=== PATIENT | male | born 1955 | race Caucasian/White ===

== ENCOUNTER 2022-07-27 05:38 | Observation (INO) ==
[2022-07-27] MEDS ORDERED: CEFAZOLIN 2,000 MG/15 ML SYR IV SCH (06:00)
[2022-07-27] MEDS ORDERED: SODIUM CHLORIDE 0.9% 1000ML 1,000 ML IV SCH ×2 (06:00→09:45)
[2022-07-27 06:28] LABS: Creatinine Clr Calc Pharmacy 86.5 ml/min; Est GFR (African American) 88.4 ml/min; Est GFR (Non-African American) 76.2 ml/min
--- NOTE | 2022-07-27 07:35 | History & Physical Report ---
Date of Service July 27, 2022 History of Present Illness Primary Care Provider: Domingo Valentino MD Reason for Consultation Left lower extremity claudication History of Present Illness This is a 67-year-old gentleman who has a history of peripheral vascular occlusive disease. He had a right leg bypass in 2019 and right iliac artery stenting in 2018. He has had endarterectomies and angioplasties of his left superficial femoral artery and angioplasty of his anterior tibial artery on the left side. Post procedure he had occlusion of his anterior tibial artery proximally. He did not have any claudication at that time. Subsequently he is developed claudication left lower extremity which limits his ambulation to less than 100 feet. He denies any rest pain. He denies any tissue loss. He does have a history of cardiomyopathy. He does have coronary artery occlusive disease and has had an biventricular ICD placed. He denies any symptoms of cerebrovascular insufficiency. Review of Systems 10 systems reviewed. Only positive findings are tolerance to heat and cold. Rest of the positive findings are per the history of present illness. Physical Exam Vitals & Measurements HR: 67 (Monitored) BP: 144/76 SpO2: 98% WT: 105.6 kg Input and Output - Last 24 hours (Last 8 hours) No I/O Data Found: Patient is awake alert and oriented x3. He is in no apparent distress. His blood pressure is 142/72 on the left and 144/76 on the right. His radials, carotids, superficial temporal arteries are +2 bilaterally. No carotid bruits. Lungs are clear. Heart has a RRR. Abdominal exam is benign. No abnormal dilatation of the aorta is appreciated. Femoral pulses are +2 bilaterally. He does have pedal pulses are palpable on the right no pedal pulses are palpated on the left. Neurologic exam is intact motor and sensory function. His capillary refill was slightly decreased on the left foot compared to the right. There is no tissue loss in either lower extremity. Diagnostic Results He did have ultrasound done prior to this visit which showed an index of 2.59 in the left 0.88 on the right. Appears to be a tight stenosis of the distal superficial femoral artery on the left side and a patent bypass graft of the right lower extremity. Assessment/Plan (atherosclerosis) At this point being that his claudication is limiting his daily activity and occurs at 100 feet. Recommend arteriography and possible reintervention of the left lower extremity. He understands the risks options benefits of this procedure and agrees to go ahead with the planned procedure. We will keep you informed as to his results. Thank you very much for letting us participate in the care of this patient. Sincerely, Felix Layne MD Problem List/Past Medical History Ongoing (atherosclerosis) Historical No qualifying data Medications Inpatient No active inpatient medications Home allopurinol 300 mg oral tablet aspirin 81 mg oral delayed release tablet, 81 mg= 1 tab, PO, Daily atorvastatin 80 mg oral tablet carvedilol 6.25 mg oral tablet DULoxetine 30 mg oral delayed release capsule, 30 mg= 1 cap, PO, Daily Entresto 49 mg-51 mg oral tablet ergocalciferol 1.25 mg (50,000 intl units) oral capsule ezetimibe 10 mg oral tablet Insulin Aspart FlexPen 100 units/mL injectable solution, 5 unit, subQ, ac isosorbide mononitrate 120 mg oral tablet, extended release, 120 mg= 1 tab, PO, qAM Jardiance 25 mg oral tablet Lantus Solostar Pen 100 units/mL subcutaneous solution, 65 unit, subQ, qPM metFORMIN 750 mg oral tablet, extended release, See Instructions multivitamin, 1 tab, PO, Daily nitroglycerin 0.4 mg sublingual tablet pantoprazole 40 mg oral delayed release tablet, 40 mg= 1 tab, PO, Daily predniSONE 5 mg oral tablet ranolazine 1000 mg oral tablet, extended release, 1000 mg= 1 tab, PO, bid spironolactone 25 mg oral tablet, See Instructions traZODone 100 mg oral tablet, 100 mg= 1 tab, PO, qhs varenicline 0.5 mg-1 mg oral tablet Vascepa 1 g oral capsule Allergies NKA Signature Line Electronic Signature on File Electronically Reviewed/Signed by: Hernan Layne MD Author Signature Dt/Tm:07/21/2022 03:34 PM Process Line Operator Dallin Lopez [facility] [place], [address] [place], [place] [address] Result Type: .Outpt Proc Date of Service: July 21, 2022 15:24 EST Authorization Status: Final Subject: Consult Note Author or Import Date: MD Xi, Hernan Kerr on July 21, 2022 15:34 EST Verified By: MD Xi, Hernan Kerr on July 21, 2022 15:34 EST Encounter info: [id number], [facility], Clinic, 07/21/2022 - 07/21/2022 Allergies Allergy/AdvReac Type Severity Reaction Status Date / Time No Known Allergies Allergy Verified 07/27/22 06:14 Home Medications Medication Instructions Recorded Confirmed Type aspirin 81 mg tablet,delayed 81 mg PO DAILY 04/20/22 07/27/22 History release (Adult Low Dose Aspirin) atorvastatin 80 mg tablet 80 mg PO DAILY 04/20/22 07/27/22 History cholecalciferol (vitamin D3) 1,250 50,000 unit PO .COMPLEX 04/20/22 07/27/22 History mcg (50,000 unit) capsule ciclopirox 0.77 % topical cream 1 applic topical ONCE 04/20/22 07/27/22 History ezetimibe 10 mg tablet 10 mg PO DAILY 04/20/22 07/27/22 History isosorbide mononitrate 120 mg 120 mg PO DAILY 04/20/22 07/27/22 History tablet,extended release 24 hr nitroglycerin 0.4 mg sublingual 0.4 mg sublingual Q5M PRN Pain 04/20/22 07/27/22 History tablet sacubitril 49 mg-valsartan 51 mg 1 tab PO BID 04/20/22 07/27/22 History tablet (Entresto) spironolactone 25 mg tablet 12.5 mg PO DAILY 04/20/22 07/27/22 History colchicine 0.6 mg tablet 0.6 mg PO BID #60 tabs 04/24/22 07/27/22 Rx empagliflozin 25 mg tablet 25 mg PO DAILY #90 tabs 04/24/22 07/27/22 Rx (Jardiance) metformin 750 mg tablet,extended See Rx Instructions .Route 04/24/22 07/27/22 Rx release 24 hr .COMPLEX #270 tabs flash glucose sensor (FreeStyle #2 ea 05/01/22 07/27/22 Rx Sandy 2 Sensor kit) insulin aspart U-100 100 unit/mL 5 unit subcut TID 05/08/22 07/27/22 History (3 mL) subcutaneous pen (Novolog FlexPen U-100 Insulin aspart) mecobalamin (vitamin B12) 1,000 1,000 mcg PO DAILY 05/20/22 07/27/22 History mcg chewable tablet Cane 4 pronged #1 ea 05/24/22 07/27/22 Rx carvedilol 6.25 mg tablet 6.25 mg PO BID #180 tabs 06/02/22 07/27/22 Rx icosapent ethyl 1 gram capsule 2 g PO BID #360 caps 06/02/22 07/27/22 Rx (Vascepa) pantoprazole 40 mg tablet,delayed 40 mg PO DAILY #90 tabs 06/02/22 07/27/22 Rx release pen needle, diabetic 31 gauge x #100 ea 06/16/22 07/27/22 Rx 5/16" (BD Ultra-Fine Short Pen Needle) duloxetine 30 mg capsule,delayed 30 mg PO DAILY #90 caps 07/13/22 07/27/22 Rx release ranolazine 1,000 mg See Rx Instructions .Route 07/13/22 07/27/22 Rx tablet,extended release,12 hr .COMPLEX #180 tabs trazodone 100 mg tablet See Rx Instructions .Route 07/13/22 07/27/22 Rx .COMPLEX #30 tabs allopurinol 100 mg tablet 100 mg PO DAILY #90 tabs 07/21/22 07/27/22 Rx allopurinol 300 mg tablet 600 mg PO .COMPLEX #180 tabs 07/21/22 07/27/22 Rx insulin glargine 100 unit/mL (3 65 unit (0.65 mL) subcut HS #75 mL 07/21/22 07/27/22 Rx mL) subcutaneous pen (Lantus Solostar U-100 Insulin) prednisone 5 mg tablet 5 mg PO DAILY #30 tabs 07/21/22 07/27/22 Rx varenicline 0.5 mg (11)-1 mg (42) See Rx Instructions .Route 07/21/22 07/27/22 Rx tablets in a dose pack .COMPLEX #53 ea Past Med/Surg History Medical History Pacemaker 2021June 09 Family History (Updated 04/20/22 @ 12:50 by Domingo Valentino MD) Father , age 72 Diabetes Colonic polyp Hypertension Kidney disease Heart disease Dyslipidemia Coronary heart disease, Onset Age: 63 CABG Mother Lung disease Lung cancer, Onset Age: 70 small cell 71 Denies family history of Ovarian cancer Prostate cancer Deep vein thrombosis Alzheimer disease Dementia Depression Myocardial infarction Breast cancer Colorectal cancer Pulmonary embolism Stroke Asthma Social History (Updated 04/20/22 @ 12:23 by CHOLO Coyne) Smoking Status: Current every day smoker Tobacco Type: Cigarettes Age Started Using Tobacco: 17; Cigarettes Per Day: 10; Second Hand Exposure: No; Hx Alcohol Use: Yes Alcohol type: beer Alcohol Intake Frequency: Monthly or Less Alcohol Intake Frequency Comment: 4-5 beers monthly Hx Substance Use: No Preferred Language: Cymro Communication Ability: Effective Visual Impairment: Limited Hearing Ability: Use of Hearing Aid Lawn Caretaker Required: No Beliefs That Will Affect Care: None marital status: Current Living Situation: Spouse Current Living Situation Comment: spouse and daughter current occupational status: disabled How many Children do You have: 4 Other Information That Helps Us Care for You: No Feels Safe at Home: Yes Safety Concerns: Feels Safe At This Time Childhood Exposure to Second-Hand Smoke: Yes Dental Care, Regularly: No Physical Activity Frequency: Other Seatbelt Use: always Sunscreen Use: Yes Assistive Devices: Denture - Lower, Glasses and Hearing Aid - Bilateral Results & Data ([facility]) Vital Signs (Past 12 Hours) Vital Signs Temp Pulse Resp BP Pulse Ox O2 Del Method 07/27/22 06:03 37 C 60 20 106/58 L 98 Room Air
[2022-07-27] MEDS ORDERED: MIDAZOLAM HCL 1 MG/ML 2ML VIAL ONE ×2 (07:42→08:46)
[2022-07-27] MEDS ORDERED: fentaNYL citrate PF 100 MCG/2 ML VIAL ONE ×2 (07:42→08:46)
[2022-07-27] MEDS ORDERED: LIDOCAINE 1% LOCAL 20 ML VIAL ONE (07:42)
[2022-07-27] MEDS: HYDROCORTISONE SOD SUCCINATE 100 MG/2 ML VIAL IV SCH ×3 (08:00→17:19)
--- NOTE | 2022-07-27 08:00 | Pre Anesthesia Assessment ---
Date of Service July 27, 2022 Pre Sedation Assessment Vital Signs Temp Pulse Resp BP Pulse Ox O2 Del Method 07/27/22 06:03 37 C 60 20 106/58 L 98 Room Air Cardiovascular RRR, no murmur, no edema Respiratory normal respiratory effort, lungs clear to auscultation Pre-Sedation Airway Assessment Smoking Status: Current every day smoker Hx Sleep Apnea: No Short, Thick Neck: No Thyromental Distance: > or= 3.5 Finger Breadths Oral Cavity: + Dentures Mallampati Class: II ASA: ASA3 NPO Status Date of Last Intake of Fluids: 07/26/22 Time of Last Intake of Fluids: 21:00 Date of Last Intake of Solid Food: 07/26/22 Time of Last Intake of Solid Foods: 18:00 Procedure Planning Contraindications for Sedation: none Current Medications Reviewed: Yes Notes The planned sedation has been discussed with the patient. Informed Consent was obtained. I have identified the patient, determined the appropriateness of sedation and have assessed the patient immediately prior to the procedure. All medicine(s) and interventions are by my order.
[2022-07-27] MEDS ORDERED: HEPARIN SOD (PORCINE) 1000 UNIT/ML ONE (09:11)
[2022-07-27] MEDS ORDERED: CLOPIDOGREL BISULFATE 300 MG TAB PO STA (09:34)
[2022-07-27] MEDS ORDERED: oxyCODONE/ACETAMINOPHEN 5mg/325mg TAB PO PRN ×2 (09:34→15:05)
[2022-07-27] MEDS ORDERED: VISIPAQUE IV PRN (09:37)
[2022-07-27] MEDS ORDERED: hydrALAZINE HCL 20 MG/ML VIAL ONE (09:39)
--- NOTE | 2022-07-27 09:49 | Post Anesthesia Assessment ---
Date of Service July 27, 2022 Post Sedation Assessment Vital Signs Temp Pulse Resp BP BP Pulse Ox O2 Del Method 07/27/22 09:41 72 18 191/92 H 98 Oxymask 07/27/22 09:40 73 18 193/93 H 96 Oxymask 07/27/22 09:35 73 18 193/91 H 96 Oxymask 07/27/22 09:30 74 18 193/95 H 96 Oxymask 07/27/22 09:20 68 18 183/84 H 96 Oxymask 07/27/22 09:05 73 20 183/93 H 96 Oxymask 07/27/22 09:00 68 20 190/90 H 95 Oxymask 07/27/22 08:55 68 20 162/95 H 95 Oxymask 07/27/22 08:45 60 18 164/82 H 97 Oxymask 07/27/22 08:40 60 18 154/80 H 97 Oxymask 07/27/22 08:35 60 18 144/76 H 95 Oxymask 07/27/22 08:30 60 18 138/78 94 Oxymask 07/27/22 08:27 60 18 130/60 94 Oxymask 07/27/22 08:25 60 18 130/60 94 Oxymask 07/27/22 08:20 60 18 123/67 94 Oxymask 07/27/22 08:15 60 18 121/76 95 Oxymask 07/27/22 08:10 60 18 135/69 95 Oxymask 07/27/22 09:46 72 18 170/86 H 94 Room Air 07/27/22 09:25 68 18 190/94 H 96 Oxymask 07/27/22 09:15 68 18 181/88 H 96 Oxymask 07/27/22 09:10 70 18 184/89 H 96 Oxymask 07/27/22 08:50 60 16 164/90 H 95 Oxymask 07/27/22 08:05 60 18 144/77 H 100 Oxymask 07/27/22 08:00 60 18 145/75 H 100 Oxymask 07/27/22 06:03 37 C 60 20 106/58 L 98 Room Air O2 Flow Rate 07/27/22 09:41 6 07/27/22 09:40 6 07/27/22 09:35 6 07/27/22 09:30 6 07/27/22 09:20 6 07/27/22 09:05 6 07/27/22 09:00 6 07/27/22 08:55 6 07/27/22 08:45 4 07/27/22 08:40 4 07/27/22 08:35 4 07/27/22 08:30 4 07/27/22 08:27 4 07/27/22 08:25 4 07/27/22 08:20 4 07/27/22 08:15 4 07/27/22 08:10 4 07/27/22 09:46 07/27/22 09:25 6 07/27/22 09:15 6 07/27/22 09:10 6 07/27/22 08:50 6 07/27/22 08:05 4 07/27/22 08:00 4 07/27/22 06:03 Recovery Score Activity: Moves 4 extremities Respiration: Deep Breath/Cough Circulation: +/-20% PreAnes Value Consciousness: Fully Awake Oxygen Saturation: > 92% On Room Air Post Anesthesia Score: 10 Discharge Sedation Level of Care: Fast Track Phase II Post Sedation Plan On clinical assessment, the patient appears to have tolerated the sedation without complications. Patient is recovering as anticipated. Patient will continue to be monitored by nursing and may be discharged when sedation discharge criteria are met per below protocol. Upon Completions of procedure up to 15 minutes continue every 5 minute vital signs and the P.A.R. score; then discharge to a Phase I or Fast Track to Phase II per the following guidelines: * Discharge Patient to appropriate Phase II area if PAR is 8 or greater or return to pre- procedure baseline. The post - procedure orders will be as di rected. * If PAR score is less than 8 or not return to pre-procedure baseline then patient will follow Phase I monitoring till PAR is reached for Phase II. The Phase I may be done in procedure room or may call to secure a Phase I area. * If naloxone or flumazenil are used for reversal, hold in Phase I for continued monitoring from when last reversal dose was given for a minimum of 60 minutes or longer pending the nurse and/or physician discretion of patient condition before discharge to Phase II. Please call the Sedation Physician to re-evaluate and complete post-note for discharge to Phase II area. Do NOT discharge from procedure sedation or Phase 1 until post- sedation evaluation note is complete by procedure /sedation MD Sedation Discharge Instructions to be given to the patient at discharge to home.
--- NOTE | 2022-07-27 09:50 | Procedure Note ---
Angiogram Post Procedure Fluoroscopy Time (minutes): 26.2 Conscious Sedation Time (minutes): 101 Radiation (mGy): 252 Contrast: 120 Post Operative Report Pre & Post Diagnosis Operation Date: 07/27/22 08:00 Pre-Op Diagnosis: Left Superficial Femoral Artery Occlusion Post-Op Diagnosis: Left Superficial Femoral Artery Occlusion I identified the patient and participated in the time-out.: Yes Procedure Operation Date: 07/27/22 08:00 Actual Procedures p Left Lower Extremity Angiogram, Ultrasound Localization of Right Femoral Artery, Lithotripsy Left Popliteal Artery and Left Superficial Femoral Artery, Percutaneous Transluminal Angioplasty and Stenting of Left Popliteal Artery and Left Superficial Femoral Artery, Mechanical Closure of Right Femoral Artery, Moderate Sedation [id number](Right) - Hernan Layne MD Surgeon Hernan Layne MD Cold Press Loader none Estimated Blood Loss 30 Findings Consistent with Post-Op Diagnosis Specimens none Anesthesia Type RN Sedation Complications none Disposition Accompanied Patient To Recovery: No Disposition: Recovery Room Indications This is a 67-year-old gentleman who had intervention left lower extremity in the past for severe claudication. He was doing well until the last few months which point his claudication has returned. It is interfering with his daily activity and is very restricting. Arteriography and possible reintervention was recommended. I have discussed the risks options and benefits of the procedure with the patient. The patient understands the risks options and benefits and agrees to the procedure. Description of Procedure The patient was taken to the operating room and placed in the supine position. After both groins were prepped and draped in a sterile manner patient was identified and a timeout was performed. Using ultrasound the right common femoral artery was identified. It was punctured under direct ultrasound vision. An ultrasound showed the artery to be patent with mild/moderate posterior wall plaque. Once it was punctured a 5 Bengali sheath was inserted. 035 wire was passed into the distal aorta. A pigtail catheter was then passed over the wire and placed in the distal aorta. Aortography was performed which showed both iliac systems to be widely patent with no evidence of stenosis. Using an 035 wire the pigtail was able to be passed down to the left external iliac artery. Arteriography showed a patent common femoral and profundofemoral arteries. The superficial femoral artery was occluded right at its origin and reconstituted right at the adductor hiatus with 3 areas of what appeared to be filling defects seen in the proximal popliteal. The distal popliteal was patent. The outflow was through the peroneal artery reconstitution of the dorsalis pedis and the posterior tibial at the ankle. We did insert an 035 wire through the pigtail and switched out to a quick cross. We were able to advance into the superficial femoral artery for short distance. We exchanged wires to a stiffened Glidewire. We then exchanged the 5 Bengali sheath a 6 Bengali destination. Prior to this we had to switch the 035 with the help of a quick cross catheter to a stiff Amplatz. Once the destination was in place the Amplatzer was removed. We then used an 035 stiffened Glidewire with a quick cross and was able to cross the lesion down into the proximal popliteal. Wire was removed. We then injected the quick cross which showed it to be true lumen with again the filling defect seen in the proximal popliteal. The quick cross was then removed over an 035 wire. We used a 4 x 100 balloon to predilate the entire superficial femoral artery that was occluded. We then reinserted the quick cross over the wire and exchanged to an 014 wire. We used a 60 mm length lithotripsy catheter and perform lithotripsy through the entire occluded superficial femoral artery length. Once this was done an injection showed still no flow through the superficial femoral artery. We then reinserted the quick cross. This was passed down into the mid popliteal. Injection showed it to be true lumen. There were 2 branches seen coming off the mid popliteal artery which reconstituted the artery. We switched the wires to an 018 wire and remove the q uick cross. We then inserted the first stent and made land just proximal to the large branch that was reconstituting the popliteal. This was a 6 x 15 Viabahn. We then overlapped more proximally with a 6 x 10, another 6 x 10, and finally two 6 x 5 Viabahn stents. The most proximal stent was landed just beyond the origin of the superficial femoral artery. We postdilated all the stents with a 6 x 120 balloon. The first stent was placed below the 3 filling defects which were noted in the proximal popliteal. Post completion angiogram showed the stents in the SFA and proximal popliteal to be widely patent. The origin of the superficial femoral artery is widely patent with the stent starting just below the origin. There is excellent flow into the distal popliteal and peroneal artery runoff. The dorsalis pedis and posterior tibial arteries were again seen at the foot with rapid flow. That point the destination sheath was pulled over the right side. Hand-injection showed it to be entering into the common femoral artery. Star closure device was used for closure. Adequate hemostasis was noted. Sterile dressings were applied to the wound.The patient left the operation room in satisfactory condition and tolerated the procedure well. All needle and sponge counts were correct at the end of the procedure. I attest to the content of the Intraoperative Record and any orders documented therein. Any exceptions are noted below.
[2022-07-27] MEDS ORDERED: ONDANSETRON INJ 2 MG/ML 2 ML VIAL IV STA ×2 (10:09→11:02)
[2022-07-27] MEDS ORDERED: PROMETHAZINE HCL 25 MG in SODIUM CHLORIDE 0.9% 50 ML IV STA (11:42)
[2022-07-27] MEDS ORDERED: PROMETHAZINE HCL INJ 25 MG/ML 1 ML VIAL ONE (11:45)
[2022-07-27] MEDS ORDERED: SODIUM CHLORIDE 0.9% 50 ML BAG ONE (11:45)
[2022-07-27] MEDS ORDERED: METOCLOPRAMIDE HCL INJ 5 MG/ML 2 ML VIAL ONE (13:06)
[2022-07-27] MEDS: METOCLOPRAMIDE HCL INJ 5 MG/ML 2 ML VIAL IV PRN ×2 (13:08→13:38)
[2022-07-27] MEDS ORDERED: ONDANSETRON INJ 2 MG/ML 2 ML VIAL IV PRN (15:05)
[2022-07-27] MEDS ORDERED: NITROGLYCERIN SL 0.4 MG/TAB TAB SL PRN (15:50)
[2022-07-27] MEDS ORDERED: ERGOCALCIFEROL 50,000 UNITS 1250 MCG CAP PO SCH (17:00)
[2022-07-27] MEDS: SODIUM CHLORIDE 0.9% 1000ML 1,000 ML IV SCH (17:01)
[2022-07-27] MEDS: carvediloL 6.25 MG TAB PO SCH (17:24)
[2022-07-27] MEDS ORDERED: NON-FORMULARY MEDICATION (Metformin 750 mg Tablet Extended Release 24 Hr) PO SCH (21:00)
[2022-07-27] MEDS ORDERED: traZODone HCL 100 MG TAB PO SCH (21:00)
[2022-07-27] MEDS: INSULIN ASPART PER UNIT CHARGE SQ SCH (22:25)
[2022-07-27] MEDS: COLCHICINE 0.6 MG TAB PO SCH (22:25)
[2022-07-27] MEDS: RANOLAZINE 500 MG ER TAB PO SCH (22:26)
[2022-07-27] MEDS: VALSARTAN/SACUBITRIL 51/49 MG TAB PO SCH (22:26)
[2022-07-28] MEDS: SODIUM CHLORIDE 0.9% 1000ML 1,000 ML IV SCH ×2 (00:16→08:24)
[2022-07-28] MEDS: HYDROCORTISONE SOD SUCCINATE 100 MG/2 ML VIAL IV SCH (06:06)
[2022-07-28 08:02] LABS: Basophils # (auto) 0.02 K/uL (0-0.2); Basophils % (auto) 0.2 %; Eosinophils # (auto) 0.01 K/uL (0-0.50); Eosinophils % (auto) 0.1 %; Hematocrit (blood only) 37.5 % (42.0-52.0); Hemoglobin 12.8 g/dl (14.0-18.0); Immature Granulocytes # (auto) 0.03 K/uL (0.01-0.20); Immature Granulocytes % (auto) 0.3 %; Lymphocytes # (auto) 1.61 K/uL (1.2-3.4); Mean Corpuscular Hemoglobin 31.4 pg (25.0-34.0); Mean Corpuscular Hgb Conc 34.1 g/dL (32.0-36.0); Mean Corpuscular Volume 92.1 fL (80.0-100.0); Mean Platelet Volume 9.9 fL (9.4-12.4); Monocytes # (auto) 1.05 K/uL (0.11-0.59); Monocytes % (auto) 10.5 %; Neutrophils # (auto) 7.32 K/uL (1.40-6.50); Neutrophils % (auto) 72.9 %; Platelet Count 144 K/uL (130-400); RDW Coefficient of Variation 13.2 % (11.5-14.5); RDW Standard Deviation 44.5 fL (36.4-46.3); Red Blood Count 4.07 M/uL (4.70-6.10); White Blood Count 10.04 K/ul (4.8-10.8)
[2022-07-28 08:18] LABS: BUN Creatinine Ratio 21.1 (10-20); Calcium 8.1 mg/dl (8.5-10.1); Creatinine Clr Calc Pharmacy 98.1 ml/min; Est GFR (African American) 102.8 ml/min; Est GFR (Non-African American) 88.7 ml/min; Potassium 3.5 mmol/L (3.5-5.1)
[2022-07-28] MEDS: INSULIN ASPART PER UNIT CHARGE SQ SCH (08:24)
[2022-07-28] MEDS: VALSARTAN/SACUBITRIL 51/49 MG TAB PO SCH (08:25)
[2022-07-28] MEDS: RANOLAZINE 500 MG ER TAB PO SCH (08:25)
[2022-07-28] MEDS: COLCHICINE 0.6 MG TAB PO SCH (08:26)
[2022-07-28] MEDS: carvediloL 6.25 MG TAB PO SCH (08:27)
--- NOTE | 2022-07-28 08:54 | Surgery Progress Note ---
Date of Service July 28, 2022 Assessment & Plan (1) Peripheral arterial disease: Plan: Pt doing well after his procedure yesterday. Will follow up in office in 2 weeks. (2) Intractable nausea and vomiting: Plan: resolved. Recommend he follow up with his PCP or come to ED if recurs. D/C home today Admission and Anticipated Discharge Date Admission Date: July 27, 2022 Subjective 67 yo m POD #1 after LLE angio with GLAZE SPRAYER/lithotripsy and stenting of SFA, later admitted d/t intractable nausea and vomiting, seen in f/u today. Pt states all nausea resolved overnight. Currently eating breakfast with no nausea. No other new complaints. Review of Systems Review of Systems: All systems reviewed & are unremarkable except as noted in HPI & below Physical Exam Constitutional: WD/WN, vitals as above cooperative; not in distress Respiratory: normal respiratory effort, lungs clear to auscultation Auscultation: + diminished lung sounds Cardiovascular: Rate/Rhythm: regular rate and regular rhythm Vessels: femoral pulses present (R femoral puncture site c/d/i), posterior tibial pulses present, dorsalis pedis pulses present and radial pulses present; + abnormal peripheral pulses Extremities: normal capillary refill Gastrointestinal (Abdomen): Inspection/Auscultation: abdomen normal to inspe ction and normal bowel sounds Percussion/Palpation: abdomen soft; abdomen nontender Musculoskeletal: no cyanosis or clubbing, extremities motor strength 5/5 Skin: no rashes, warm and dry Neurologic: moves all extremities and awake; no focal motor deficits and not confused Psychiatric: A+Ox3, euthymic affect Results & Data ([facility]) Vital Signs (Past 12 Hours) Vital Signs Temp Pulse Resp BP Pulse Ox O2 Del Method 07/28/22 07:27 36.9 C 58 L 18 132/55 L 93 Room Air 07/28/22 02:59 36.8 C 58 L 16 127/52 L 94 Room Air 07/27/22 23:00 37.3 C 73 18 157/70 H 93 Room Air
[2022-07-28] MEDS ORDERED: predniSONE 5 MG TAB PO SCH (09:00)
[2022-07-28] MEDS ORDERED: CYANOCOBALAMIN (B-12) 500 MCG TABLET PO SCH (09:00)
[2022-07-28] MEDS ORDERED: PANTOprazole 40 MG TAB PO SCH (09:00)
[2022-07-28] MEDS ORDERED: metFORMIN HCL ER 500 MG TABCR PO SCH (09:00)
[2022-07-28] MEDS ORDERED: EMPAGLIFLOZIN 25 MG TAB PO SCH (09:00)
[2022-07-28] MEDS ORDERED: CLOPIDOGREL BISULFATE 75 MG TAB PO SCH (09:00)
[2022-07-28] MEDS ORDERED: EZETIMIBE 10 MG TABLET PO SCH (09:00)
[2022-07-28] MEDS ORDERED: allopurinoL 300 MG TAB PO SCH (09:00)
[2022-07-28] MEDS ORDERED: ASPIRIN 81 MG ECTAB PO SCH (09:00)
[2022-07-28] MEDS ORDERED: ATORVASTATIN 40 MG TAB PO SCH (09:00)
[2022-07-28] MEDS ORDERED: DULoxetine HCL 30 MG CAP PO SCH (09:00)
[2022-07-28] MEDS ORDERED: ISOSORBIDE MONO EXTENDED REL 60 MG TABCR PO SCH (09:00)
[2022-07-28] MEDS ORDERED: SPIRONOLACTONE 12.5 MG TAB PO SCH (09:00)
[2022-07-28] MEDS ORDERED: PANTOprazole 40 MG in SYRINGE 0 ML IV SCH (11:00)
[2022-07-28] MEDS ORDERED: metFORMIN HCL 500 MG TAB PO SCH (21:00)
--- NOTE | 2022-07-29 12:38 | Discharge Summary ---
Date of Service July 29, 2022 Admission HPI Per Admitting Provider Reason for Consultation Left lower extremity claudication History of Present Illness This is a 67-year-old gentleman who has a history of peripheral vascular occlusive disease. He had a right leg bypass in 2019 and right iliac artery stenting in 2018. He has had endarterectomies and angioplasties of his left superficial femoral artery and angioplasty of his anterior tibial artery on the left side. Post procedure he had occlusion of his anterior tibial artery proximally. He did not have any claudication at that time. Subsequently he is developed claudication left lower extremity which limits his ambulation to less than 100 feet. He denies any rest pain. He denies any tissue loss. He does have a history of cardiomyopathy. He does have coronary artery occlusive disease and has had an biventricular ICD placed. He denies any symptoms of cerebrovascular insufficiency. Review of Systems 10 systems reviewed. Only positive findings are tolerance to heat and cold. Rest of the positive findings are per the history of present illness. Physical Exam Vitals & Measurements HR: 67 (Monitored) BP: 144/76 SpO2: 98% WT: 105.6 kg Input and Output - Last 24 hours (Last 8 hours) No I/O Data Found: Patient is awake alert and oriented x3. He is in no apparent distress. His blood pressure is 142/72 on the left and 144/76 on the right. His radials, carotids, superficial temporal arteries are +2 bilaterally. No carotid bruits. Lungs are clear. Heart has a RRR. Abdominal exam is benign. No abnormal dilatation of the aorta is appreciated. Femoral pulses are +2 bilaterally. He does have pedal pulses are palpable on the right no pedal pulses are palpated on the left. Neurologic exam is intact motor and sensory function. His capillary refill was slightly decreased on the left foot compared to the right. There is no tissue loss in either lower extremity. Diagnostic Results He did have ultrasound done prior to this visit which showed an index of 2.59 in the left 0.88 on the right. Appears to be a tight stenosis of the distal superficial femoral artery on the left side and a patent bypass graft of the right lower extremity. Assessment/Plan (atherosclerosis) At this point being that his claudication is limiting his daily activity and occurs at 100 feet. Recommend arteriography and possible reintervention of the left lower extremity. He understands the risks options benefits of this procedure and agrees to go ahead with the planned procedure. We will keep you informed as to his results. Thank you very much for letting us participate in the care of this patient. Sincerely, Felix Layne MD Problem List/Past Medical History Ongoing (atherosclerosis) Historical No qualifying data Medications Inpatient No active inpatient medications Home allopurinol 300 mg oral tablet aspirin 81 mg oral delayed release tablet, 81 mg= 1 tab, PO, Daily atorvastatin 80 mg oral tablet carvedilol 6.25 mg oral tablet DULoxetine 30 mg oral delayed release capsule, 30 mg= 1 cap, PO, Daily Entresto 49 mg-51 mg oral tablet ergocalciferol 1.25 mg (50,000 intl units) oral capsule ezetimibe 10 mg oral tablet Insulin Aspart FlexPen 100 units/mL injectable solution, 5 unit, subQ, ac isosorbide mononitrate 120 mg oral tablet, extended release, 120 mg= 1 tab, PO, qAM Jardiance 25 mg oral tablet Lantus Solostar Pen 100 units/mL subcutaneous solution, 65 unit, subQ, qPM metFORMIN 750 mg oral tablet, extended release, See Instructions multivitamin, 1 tab, PO, Daily nitroglycerin 0.4 mg sublingual tablet pantoprazole 40 mg oral delayed release tablet, 40 mg= 1 tab, PO, Daily predniSONE 5 mg oral tablet ranolazine 1000 mg oral tablet, extended release, 1000 mg= 1 tab, PO, bid spironolactone 25 mg oral tablet, See Instructions traZODone 100 mg oral tablet, 100 mg= 1 tab, PO, qhs varenicline 0.5 mg-1 mg oral tablet Vascepa 1 g oral capsule Allergies NKA Signature Line Electronic Signature on File Electronically Reviewed/Signed by: Hernan Layne MD Author Signature Dt/Tm:07/21/2022 03:34 PM Level Vial Grinder Dallin Lopez [facility] [place], [address] [place], [place] [address] Result Type: .Outpt Proc Date of Service: July 21, 2022 15:24 EST Authorization Status: Final Subject: Consult Note Author or Import Date: MD Layne Eugene J on July 21, 2022 15:34 EST Verified By: MD Layne Eugene J on July 21, 2022 15:34 EST Encounter info: [id number], [facility], Clinic, 07/21/2022 - 07/21/2022 Admission Exam Per Admitting Provider Patient is awake alert and oriented x3. He is in no apparent distress. His blood pressure is 142/72 on the left and 144/76 on the right. His radials, carotids, superficial temporal arteries are +2 bilaterally. No carotid bruits. Lungs are clear. Heart has a RRR. Abdominal exam is benign. No abnormal dilatation of the aorta is appreciated. Femoral pulses are +2 bilaterally. He does have pedal pulses are palpable on the right no pedal pulses are palpated on the left. Neurologic exam is intact motor and sensory function. His capillary refill was slightly decreased on the left foot compared to the right. There is no tissue loss in either lower extremity. Principal Diagnosis 1. s/p LLE angiogram with [employer]/Stent SFA 2. Intractable nausea/vomiting 3. PAD Discharge Exam Constitutional WD/WN, vitals as above cooperative; not in distress Respiratory normal respiratory effort, lungs clear to auscultation Auscultation: + diminished lung sounds Cardiovascular Rate/Rhythm: regular rate and regular rhythm Vessels: femoral pulses present (R femoral puncture site c/d/i), posterior tibial pulses present, dorsalis pedis pulses present and radial pulses present; + abnormal peripheral pulses Extremities: normal capillary refill Gastrointestinal (Abdomen) Inspection/Auscultation: abdomen normal to inspection and normal bowel sounds Percussion/Palpation: abdomen soft; abdomen nontender Musculoskeletal no cyanosis or clubbing, extremities motor strength 5/5 Skin no rashes, warm and dry Neurologic moves all extremities and awake; no focal motor deficits and not confused Psychiatric A+Ox3, euthymic affect Discharge Data Allergies Allergy/AdvReac Type Severity Reaction Status Date / Time No Known Allergies Allergy Verified 07/27/22 06:14 Procedures Performed Operation Date: 07/27/22 08:00 Actual Procedures p Left Lower Extremity Angiogram, Ultrasound Localization of Right Femoral Artery, Lithotripsy Left Popliteal Artery and Left Superficial Femoral Artery, Percutaneous Transluminal Angioplasty and Stenting of Left Popliteal Artery and Left Superficial Femoral Artery, Mechanical Closure of Right Femoral Artery, Moderate Sedation [id number](Right) - Hernan Layne MD Ordered Studies 07/27/22 07:08 EV angio LE LT Routine US EV guide vascular access Routine Hospital Course (1) Peripheral arterial disease: Pt doing well after his procedure yesterday. Will follow up in office in 2 weeks. (2) Intractable nausea and vomiting: resolved. Recommend he follow up with his PCP or come to ED if recurs. D/C home today Total Time Total Time Spent Total Time Spent (In Minutes): 0 Discharge Plan Discharge Items Patient Disposition: Home - Self-Care Reason For Visit: Left Superficial Femoral Artery Occlusion Discharge Diagnosis: 1. Left superficial femoral artery and popliteal artery occlusion 2. Intractable Nausea and Vomiting Condition on Discharge: Good Activity: Per Instructions section Non-emergency contact: Primary Care Provider and Surgeon Call non-emergency contact if: your temperature is above 101.5, your wound has increased redness, your wound has increased drainage and your wound pain has increased Follow-up/Referrals: Domingo Valentino MD [Primary Care Provider] - 08/14/22 3:00 pm (Follow up with your PCP within 1-2 weeks) Hernan Layne MD [Physician] - 08/13/22 2:15 pm (Follow up with Dr Layne or Krystle Joseph PA-C, within 2 weeks) Diet: Carb Consistent or DM2 and Heart Healthy Addtl Attending Provider Instructions: SPECIAL CARE INSTRUCTIONS: Medications: * Continue to take your medications as directed. If you have been given a pr escription for Plavix, please fill it immediately and take as directed. Incision Care: * Your puncture site may have some bruising and minor swelling for about one week. * You will have a small dressing covering your puncture site. You may remove the dressing after 24 hours and shower. You may let the warm soapy water run over it, but be sure to dry the puncture site well and keep it dry. * DO NOT IMMERSE THE INCISION IN A TUB/POOL/etc. UNTIL HEALED. * Puncture sites should be kept covered with a band-aid until it begins to heal. Restrictions: * Depending on whether you leg or arm was punctured to access the arteries, you will be required to lay flat, hold your arm still, or both, for about 4 hours after the procedure to prevent bleeding. * Limit your activity for the first 48 hours. You may walk and go up and down steps. Avoid excessive bending or movement at the puncture site. Possible Complications: * Excessive Swelling - after blood flow is improved you may notice increased swelling in the lower legs. This is a normal response. This usually depends on the amount of blockages in the leg, how long they have been there prior to your procedure and how much blood flow was restored. Elevating your legs will help to improve this. Please notify our office ([phone]) if the swelling does not go away after lying in bed overnight. * Infection/Drainage/Bleeding - Drainage or bleeding from the puncture site should be minimal. If you have excessive bleeding or drainage, call our office ([phone]) right away. * Pain - You may experience some mild pain or soreness at your puncture site. If your pain does not improve, please contact our office ([phone]). Call your doctor and seek emergent treatment if you develop: * Temperature above 101 degrees * Any fever or chills * Any redness or purulent drainage from the puncture site * Any new dusky/blue colored toes or feet with coolness or sharp or aching pain. SKIN IRRITATION: * You may experience some redness and/or swelling in the area where radiation was administered. If any skin irritation occurs, please contact your family physician. FOLLOW UP VISIT: Keep any scheduled doctor appointments. Call [phone] to schedule a follow up appointment if one not already scheduled. Pending Studies at Discharge: No Stand-Alone Forms: My [facility] Medications and DC Order Prescriptions: New clopidogrel [Plavix] 75 mg tablet 75 mg PO DAILY Qty: 30 12RF Continued colchicine 0.6 mg tablet 0.6 mg PO BID Qty: 60 2RF Jardiance 25 mg tablet 25 mg PO DAILY Qty: 90 3RF (DME) FreeStyle Sandy 2 Sensor Kit See Rx Instructions .Route Qty: 2 5RF Rx Instructions: As directed to check blood sugars at least once every 8 hours; change every 14 days (DME) Cane 4 pronged See Rx Instructions .Route .MEDSUPPLY Qty: 1 0RF Rx Instructions: As directed icosapent ethyl [Vascepa] 1 gram capsule 2 g PO BID Qty: 360 0RF pantoprazole 40 mg tablet,delayed release (DR/EC) 40 mg PO DAILY Qty: 90 0RF carvedilol 6.25 mg tablet 6.25 mg PO BID Qty: 180 0RF Rx Instructions: must administer with a meal/food (DME) pen needle, diabetic [BD Ultra-Fine Short Pen Needle] 31 gauge x 5/16" needle See Rx Instructions .ROUTE .MEDSUPPLY Qty: 100 3RF Rx Instructions: As [id number] times per day for insulin administration duloxetine 30 mg capsule,delayed release(DR/EC) 30 mg PO DAILY Qty: 90 1RF prednisone 5 mg tablet 5 mg PO DAILY Qty: 30 1RF insulin glargine [Lantus Solostar U-100 Insulin] 100 unit/mL (3 mL) insulin pen 65 unit subcut HS Qty: 75 0RF nitroglycerin 0.4 mg tablet, sublingual 0.4 mg sublingual Q5M PRN (Reason: Pain) Rx Instructions: do not exceed 3 doses per episode spironolactone 25 mg tablet 12.5 mg PO DAILY isosorbide mononitrate 120 mg tablet extended release 24 hr 120 mg PO DAILY Entresto 49-51 mg tablet 1 tab PO BID atorvastatin 80 mg tablet 80 mg PO DAILY ezetimibe 10 mg tablet 10 mg PO DAILY cholecalciferol (vitamin D3) 1,250 mcg (50,000 unit) capsule 50,000 unit PO WK Rx Instructions: 50,000 units orally once weekly; aspirin [Adult Low Dose Aspirin] 81 mg tablet,delayed release (DR/EC) 81 mg PO DAILY ciclopirox 0.77 % cream 1 applic topical ONCE insulin aspart U-100 [Novolog FlexPen U-100 Insulin] 100 unit/mL (3 mL) insu pawel pen 5 unit subcut TID Rx Instructions: if eating carbohydrates mecobalamin (vitamin B12) 1,000 mcg tablet,chewable 1,000 mcg PO DAILY allopurinol 300 mg tablet 300 mg PO DAILY Rx Instructions: 300 mg orally daily metformin 750 mg tablet extended release 24 hr 1,500 mg PO QAM metformin 750 mg Tablet Extended Release 24 Hr 750 mg PO PM trazodone 100 mg tablet 100 mg PO HS Rx Instructions: TAKE 1 TABLET BY MOUTH AT BEDTIME varenicline 0.5 mg (11)- 1 mg (42) tablets,dose pack PO DAILY Rx Instructions: 0.5 MG DAILY X 3 DAYS THEN 0.5 MG 2 TIMES A DAY X 4 DAYS THEN 1 MG 2X/DAY THEREAFTER ranolazine 1,000 mg tablet extended release 12 hr 1,000 mg PO BID Rx Instructions: TAKE 1 TABLET BY MOUTH TWICE A DAY Discharge Orders: Discharge Order (Routine); Ordered 07/28/22 Ordered By: Krystle Davies/Other Patient Handouts: DVT Post Op Prevention Admission Data Admit Date/Time: 07/27/22 15:09 Attending Provider: Hernan Layne Admit Provider: Hernan Layne Primary Care Provider: Domingo Valentino. Other Interventions: Discharge Summary Assessment (RN) Last Done: 07/28/22 10:02
== END 2022-07-28 10:49 | disposition home or self-care (01) ==
LOC: ASU 05:38 → 3N 05:38

== ENCOUNTER 2023-04-19 19:09 | Inpatient (IN) ==
--- NOTE | 2023-04-19 19:26 | ED Triage Note ---
Date of Service April 19, 2023 Provider in Triage Author: Jaziel Vargas History of Present Illness This patient was briefly evaluated while in triage. An abbreviated physical exam was performed. This patient is a 68-year-old Male who presents to the ED for evaluation of 2 things. 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 Sent by Dr. Layne and referred here today for admission. Was in hospital at [facility] recently and admitted. Currently on antibiotics. Physical Exam GENERAL: 68 year old male. In no acute distress. SKIN: No lesions or rashes. Shoe in place. HEART: Regular rate and rhythm. LUNGS: Clear to auscultation. NEURO: Alert and oriented. No deficits. MUSCULOSKELETAL: No deformities to inspection of the extremities. PSYCH: Patient is pleasant and answers all questions appropriately. Initial orders for labs and / or imaging were placed and patient was placed in the waiting area until a bed is available. Please see further documentation for the full ED course.
--- NOTE | 2023-04-19 19:35 | Emergency Department Note ---
History of Present Illness General Chief complaint: Referred by Doctor Stated complaint: ARTERY REPLACED IN LT LEG, LT BIG TOE REMOVED Time Seen by Provider: 04/19/23 19:29 History of Present Illness Maximum Pain Intensity: 10 This is a 68-year-old male that presents to the emergency department via private vehicle for evaluation of an ongoing wound to the left first toe. He notes he was referred here today for admission. He states that the plan is for amputation of the left first toe and vascular work on the same leg. L 1st toe wound x 3 weeks with associated pain. Seeing Dr. Layne vascular surgery. Following with [facility] foot and ankle specialists as well. Patient denies any fevers or chills. He does note a minimal amount of drainage from the left first toe. Per review of the EMR the patient in the [facility] record on 04/06/2023 underwent an x-ray of the left foot. This revealed diffuse soft tissue swelling. Suggestion of small tuft erosion of the lateral tip of the first toe distal phalanx on the AP projection which could reflect osteomyelitis per radiology report. There is also comment of vascular calcifications. No soft tissue emphysema at that time. There is also comment of ankle and midfoot degenerative/posttraumatic changes with well marginated cortical erosions at the calcaneal insertion of the Achilles tendon. In addition, on 04/07/2023 the patient underwent vascular ankle brachial indices without PPG. This revealed an ETIENNE at rest of 0.65 on the left. There is right left there is moderate arterial occlusive disease.-sided moderate arterial occlusive disease by waveform analysis and toe pressure. The PPG tracing of the great toe is flat. Home Medications Medication Instructions Recorded Confirmed Type aspirin 81 mg tablet,delayed 81 mg PO DAILY 04/20/22 04/12/23 History release (Adult Low Dose Aspirin) clopidogrel 75 mg tablet (Plavix) 75 mg PO DAILY #30 tabs 07/27/22 04/12/23 Rx ezetimibe 10 mg tablet 10 mg PO DAILY #90 tabs 07/31/22 04/12/23 Rx isosorbide mononitrate 120 mg 120 mg PO DAILY #90 tabs 07/31/22 04/12/23 Rx tablet,extended release 24 hr ranolazine 1,000 mg 1,000 mg PO BID #180 tabs 07/31/22 04/12/23 Rx tablet,extended release,12 hr colchicine 0.6 mg tablet 0.6 mg PO TID #270 tabs 08/31/22 04/12/23 Rx flash glucose sensor (FreeStyle #2 ea 10/28/22 02/24/23 Rx Sandy 2 Sensor kit) pen needle, diabetic 31 gauge x #100 ea 11/08/22 02/24/23 Rx 5/16" (BD Ultra-Fine Short Pen Needle) atorvastatin 80 mg tablet 80 mg PO .evening #90 tabs 12/01/22 04/12/23 Rx nitroglycerin 0.4 mg sublingual 0.4 mg sublingual Q5M PRN Pain #14 12/01/22 04/12/23 Rx tablet tabs trazodone 100 mg tablet 50 mg (1/2 x 100 mg) PO HS #45 tabs 12/09/22 04/12/23 Rx varenicline 1 mg tablet (Chantix) 1 mg PO BID #120 tabs 02/03/23 04/12/23 Rx allopurinol 300 mg tablet 600 mg (2 x 300 mg) PO .COMPLEX 02/26/23 04/12/23 Rx #60 tabs allopurinol 100 mg tablet 100 mg PO DAILY #90 tabs 03/22/23 04/12/23 Rx Lantus Solostar U-100 Insulin 100 44 unit (0.44 mL) subcut HS #15 mL 04/03/23 04/12/23 Rx unit/mL (3 mL) subcutaneous pen (insulin glargine) Lactobacillus acidophilus See Rx Instructions PO .COMPLEX 04/12/23 04/12/23 History [Acidophilus] amoxicillin 875 mg-potassium 1 tab PO BID 04/12/23 04/12/23 History clavulanate 125 mg tablet apixaban 5 mg tablet (Eliquis) 5 mg PO .as directed 04/12/23 04/12/23 History evolocumab 140 mg/mL subcutaneous 140 mg subcut .Every 2 weeks #2 mL 04/12/23 Rx pen injector (Repatha SureClick) furosemide 20 mg tablet 40 mg PO DAILY 04/12/23 04/12/23 History Allergies Allergy/AdvReac Type Severity Reaction Status Date / Time No Known Allergies Allergy Verified 02/24/23 11:20 Past Med/Surg History Medical History Prostatitis Left wrist pain Inflammatory arthritis Pacemaker 2021June 09 History of congestive heart failure Surgical History No pertinent past surgical history Family History Father , age 72 Diabetes Colonic polyp Hypertension Kidney disease Heart disease Dyslipidemia Coronary heart disease, Onset Age: 63 CABG Mother Lung disease Lung cancer, Onset Age: 70 small cell 71 Denies family history of Ovarian cancer Prostate cancer Deep vein thrombosis Alzheimer disease Dementia Depression Myocardial infarction Breast cancer Colorectal cancer Pulmonary embolism Stroke Asthma Social History Smoking Status: Current every day smoker Tobacco Type: Cigarettes Age Started Using Tobacco: 17; Cigarettes Per Day: Reports 1 pack a week, hoping to eliminate all together.; Second Hand Exposure: No; Do You Dip or Chew Tobacco: No; Hx Alcohol Use: Yes Alcohol type: beer Alcohol Intake Frequency: Monthly or Less Alcohol Intake Frequency Comment: 4-5 beers monthly Hx Substance Use: No Preferred Language: Pashto Communication Ability: Effective Visual Impairment: Limited Hearing Ability: Use of Hearing Aid Voice Coach Required: No Beliefs That Will Affect Care: None marital status: Current Living Situation: Spouse Current Living Situation Comment: spouse and daughter current occupational status: disabled How many Children do You have: 4 Feels Safe at Home: Yes Childhood Exposure to Second-Hand Smoke: Yes Diet: regular caffeine: Yes during the past year weight has: remained stable Dental Care, Regularly: No Physical Activity Frequency: Does not Exercise Seatbelt Use: always Sunscreen Use: Yes Do you think of yourself as: straight/heterosexual Gender Identity: Male Assistive Devices: Cane, Denture - Upper, Denture - Lower, Glasses, Hearing Aid - Bilateral and Special Shoe Review of Systems A total of 10 systems reviewed and were otherwise negative Physical Exam Vital Signs Vital Signs - 24 hr 04/19/23 19:23 Temperature 36.7 C Temperature Source Temporal Artery Scan Pulse Rate 81 Respiratory Rate 18 Respiratory Effort / Characteristics Non-Labored Spontaneous Respiratory Depth Normal Respiratory Pattern Regular Blood Pressure 142/64 H Blood Pressure Mean 90 Blood Pressure Position Sitting Pulse Oximetry 96 Oxygen Delivery Method Room Air Sepsis Recent Fever Within 48 Hours No Sepsis New/Unexplained Change in Mental Status N/A Sepsis Action Taken by Nursing No Action Required VITAL SIGNS - Vital signs and nursing notes were reviewed. Stable and afebrile. GENERAL - 68-year-old male appearing his stated age who is in no acute distress. Communicates well with provider and answers questions appropriately. SKIN -the lateral aspect of the left first toe does have integument breakdown with associated darkened hue. There is a foul odor. HEAD - NC/AT. EYES - Sclera anicteric. NOSE - Midline and without cyanosis. MOUTH/OROPHARYNX - Without perioral cyanosis. NECK - No nuchal rigidity. LUNGS - CTA CARDIAC - RRR EXTREMITIES - No clubbing or peripheral cyanosis. No pretibial edema present. +5/5 strength noted in UE/LE bilaterally. LLE appropriately warm. Temperature symmetric left to right. Left first toe with decreased cap refill compared to the other toes. NEUROLOGIC -patient is neurovascularly intact throughout the lower extremities without deficit. PSYCH - A&O, and cooperates fully with examiner. Pt is very pleasant and interacts well with examiner. Course Administered Medications Discontinued Medications Hydrocodone Bitart/Acetaminophen (Hydrocodone/Acetamophen 5/325mg Tab) 1 tab PO NOW STA Stop: 04/19/23 22:12 Last Admin: 04/19/23 22:23 Dose: 1 tab Documented By: Cefepime HCl (Maxipime) 2,000 mg in 20 mls @ 5 mls/min IV NOW STA; Protocol Stop: 04/19/23 22:19 Last Admin: 04/19/23 22:24 Dose: 5 mls/min Documented By: Vancomycin HCl 2,250 mg/ (Sodium Chloride) 545 mls @ 200 mls/hr IV NOW ONE Stop: 04/20/23 01:16 Last Admin: 04/19/23 22:59 Dose: 200 mls/hr Documented By: Medical Decision Making Laboratory Data 04/19/23 20:10 04/19/23 20:10 Lab Results 04/19/23 04/19/23 Range/Units 20:10 20:20 WBC 8.62 (4.8-10.8) K/ul RBC 3.95 L (4.70-6.10) M/uL Hgb 12.0 L (14.0-18.0) g/dl Hct 35.2 L (42.0-52.0) % MCV 89.1 (80.0-100.0) fL MCH 30.4 (25.0-34.0) pg MCHC 34.1 (32.0-36.0) g/dL RDW Std Deviation 44.0 (36.4-46.3) fL RDW Coeff of Mayuri 13.6 (11.5-14.5) % Plt Count 298 (130-400) K/uL MPV 9.5 (9.4-12.4) fL Immature Gran % (Auto) 0.3 % Neut % (Auto) 71.4 % Lymph % (Auto) 17.3 % [place] % (Auto) 8.7 % Eos % (Auto) 1.6 % Baso % (Auto) 0.7 % Neut # (Auto) 6.15 (1.40-6.50) K/uL Lymph # (Auto) 1.49 (1.20-3.40) K/uL [place] # (Auto) 0.75 H (0.11-0.59) K/uL Eos # (Auto) 0.14 (0.00-0.50) K/uL Baso # (Auto) 0.06 (0.00-0.20) K/uL Immature Gran # (Auto) 0.03 (0.01-0.20) K/uL PT 10.8 (9.0-12.0) Seconds INR 1.0 (0.9-1.1) APTT 29.7 (21.0-31.0) Seconds PTT Ratio 1.1 Sodium 136 (136-145) mmol/L Potassium 4.4 (3.5-5.1) mmol/L Chloride 103 (98-107) mmol/L Carbon Dioxide 26 (21-32) mmol/L Anion Gap 7 (3-11) BUN 18 (6-23) mg/dl Creatinine 0.94 (0.6-1.4) mg/dl Est Cr Clr Drug Dosing 93.3 ml/min Est GFR ( Amer) 96.8 ml/min Est GFR (Non-Af Amer) 83.6 ml/min BUN/Creatinine Ratio 19.1 (10-20) Glucose 209 H (70-99(Fasting)) mg/dl Lactate 1.6 (0.4-2.0) mmol/L Calcium 9.4 (8.6-10.3) mg/dl Total Bilirubin 0.8 (0.2-1.0) mg/dl AST 11 L (13-39) U/L ALT 12 (7-52) U/L Alkaline Phosphatase 60 (34-104) U/L Total Protein 7.3 (6.0-8.3) gm/dl Albumin 3.6 (3.4-5.0) gm/dl Globulin 3.7 (2.5-4.0) gm/dl Albumin/Globulin Ratio 1.0 (0.9-2) Procalcitonin < 0.05 (0-0.5) ng/ml MDM Narrative Patient was seen and evaluated as above in room D03. Review was performed of triage nursing notes and vital signs. I did review pertinent previous visits and patient history. After obtaining a thorough history and physical examination the above work up was performed. Patient presents to us today for evaluation of ongoing infection/wound to the left first toe. He notes he was referred here today by vascular surgeon for admission to the hospital to undergo surgery. Patient notes he is currently on oral antibiotics. Options of care were discussed with the patient. IV access was established. Labs were drawn. There is no leukocytosis. Minor anemia noted with hemoglobin of 12.0. Coags normal. No emergent metabolic disturbance. Procalcitonin and lactate are normal. Blood cultures pending. I did obtain a wound culture of the toe prior to initiating IV antibiotics. IV cefepime and IV vancomycin ordered. It is felt that the benefit outweighed risk. It appears he already had arterial ultrasound performed of the extremity as well as an x-ray in the recent past. Case discussed with the hospitalist service (Dr. Bailey) for admission. Please refer to further documentation regarding his stay. GCS: 15 In the evaluation and treatment of this patient the following differential diagnoses were entertained: Osteomyelitis, ischemic toe, systemic infection, cellulitis, gout, among others Impression & Plan Infection of great toe Discharge Plan Visit Data Chief Complaint: Referred by Doctor Stated Complaint: ARTERY REPLACED IN LT LEG, LT BIG TOE REMOVED ED Provider: Narinder Wang ED Midlevel Provider: Jaziel Vargas Discharge Problem: Infection of great toe Patient Disposition: Admitted As Inpatient Condition: Good Discharge Instructions Interventions: ED Discharge Assessment Last Done: 04/20/23 01:07
[2023-04-19 20:46] LABS: Basophils # (auto) 0.06 K/uL (0.00-0.20); Basophils % (auto) 0.7 %; Eosinophils # (auto) 0.14 K/uL (0.00-0.50); Eosinophils % (auto) 1.6 %; Hematocrit (blood only) 35.2 % (42.0-52.0); Immature Granulocytes # (auto) 0.03 K/uL (0.01-0.20); Immature Granulocytes % (auto) 0.3 %; Lymphocytes # (auto) 1.49 K/uL (1.20-3.40); Lymphocytes % (auto) 17.3 %; Mean Corpuscular Hemoglobin 30.4 pg (25.0-34.0); Mean Corpuscular Hgb Conc 34.1 g/dL (32.0-36.0); Mean Corpuscular Volume 89.1 fL (80.0-100.0); Mean Platelet Volume 9.5 fL (9.4-12.4); Monocytes # (auto) 0.75 K/uL (0.11-0.59); Monocytes % (auto) 8.7 %; Neutrophils # (auto) 6.15 K/uL (1.40-6.50); Neutrophils % (auto) 71.4 %; Platelet Count 298 K/uL (130-400); RDW Coefficient of Variation 13.6 % (11.5-14.5); Red Blood Count 3.95 M/uL (4.70-6.10); White Blood Count 8.62 K/ul (4.8-10.8)
[2023-04-19 20:57] LABS: Albumin Level 3.6 gm/dl (3.4-5.0); BUN Creatinine Ratio 19.1 (10-20); Bilirubin,Total 0.8 mg/dl (0.2-1.0); Calcium 9.4 mg/dl (8.6-10.3); Creatinine Clr Calc Pharmacy 93.3 ml/min; Est GFR (African American) 96.8 ml/min; Est GFR (Non-African American) 83.6 ml/min; Globulin 3.7 gm/dl (2.5-4.0); Potassium 4.4 mmol/L (3.5-5.1); Total Protein 7.3 gm/dl (6.0-8.3)
[2023-04-19 21:22] LABS: Partial Thromboplastin Ratio 1.1; Partial Thromboplastin Time 29.7 Seconds (21.0-31.0); Prothrombin Time 10.8 Seconds (9.0-12.0)
[2023-04-19] MEDS ORDERED: HYDROCODONE/ACETAMOPHEN 5/325MG TAB PO STA (22:11)
[2023-04-19] MEDS ORDERED: CEFEPIME 2,000 MG/20 ML VIAL IV STA (22:16)
[2023-04-19] MEDS ORDERED: VANCOMYCIN HCL 2,250 MG in SODIUM CHLORIDE 0.9% 500 ML IV ONE (22:33)
[2023-04-19] MEDS ORDERED: VANCOMYCIN CONSULT ACTIVE PRN (22:33)
--- NOTE | 2023-04-19 22:33 | Emergency Department Note ---
ED Visit Note The patient was seen and examined with bamat. I agree with the history, physical and findings. Please see the note for disposition and details. .
--- NOTE | 2023-04-19 22:56 | Hospitalist Consultation ---
Date of Consultation April 19, 2023 History of Present Illness Allergies Allergy/AdvReac Type Severity Reaction Status Date / Time No Known Allergies Allergy Verified 02/24/23 11:20 Home Medications Medication Instructions Recorded Confirmed Type aspirin 81 mg tablet,delayed 81 mg PO DAILY 04/20/22 04/12/23 History release (Adult Low Dose Aspirin) clopidogrel 75 mg tablet (Plavix) 75 mg PO DAILY #30 tabs 07/27/22 04/12/23 Rx ezetimibe 10 mg tablet 10 mg PO DAILY #90 tabs 07/31/22 04/12/23 Rx isosorbide mononitrate 120 mg 120 mg PO DAILY #90 tabs 07/31/22 04/12/23 Rx tablet,extended release 24 hr ranolazine 1,000 mg 1,000 mg PO BID #180 tabs 07/31/22 04/12/23 Rx tablet,extended release,12 hr colchicine 0.6 mg tablet 0.6 mg PO TID #270 tabs 08/31/22 04/12/23 Rx flash glucose sensor (FreeStyle #2 ea 10/28/22 02/24/23 Rx Sandy 2 Sensor kit) pen needle, diabetic 31 gauge x #100 ea 11/08/22 02/24/23 Rx 5/16" (BD Ultra-Fine Short Pen Needle) atorvastatin 80 mg tablet 80 mg PO .evening #90 tabs 12/01/22 04/12/23 Rx nitroglycerin 0.4 mg sublingual 0.4 mg sublingual Q5M PRN Pain #14 12/01/22 04/12/23 Rx tablet tabs trazodone 100 mg tablet 50 mg (1/2 x 100 mg) PO HS #45 tabs 12/09/22 04/12/23 Rx varenicline 1 mg tablet (Chantix) 1 mg PO BID #120 tabs 02/03/23 04/12/23 Rx allopurinol 300 mg tablet 600 mg (2 x 300 mg) PO .COMPLEX 02/26/23 04/12/23 Rx #60 tabs allopurinol 100 mg tablet 100 mg PO DAILY #90 tabs 03/22/23 04/12/23 Rx Lantus Solostar U-100 Insulin 100 44 unit (0.44 mL) subcut HS #15 mL 04/03/23 04/12/23 Rx unit/mL (3 mL) subcutaneous pen (insulin glargine) Lactobacillus acidophilus See Rx Instructions PO .COMPLEX 04/12/23 04/12/23 History [Acidophilus] amoxicillin 875 mg-potassium 1 tab PO BID 04/12/23 04/12/23 History clavulanate 125 mg tablet apixaban 5 mg tablet (Eliquis) 5 mg PO .as directed 04/12/23 04/12/23 History evolocumab 140 mg/mL subcutaneous 140 mg subcut .Every 2 weeks #2 mL 04/12/23 Rx pen injector (Repatha SureClick) furosemide 20 mg tablet 40 mg PO DAILY 04/12/23 04/12/23 History Patient History Medical History (Reviewed 02/24/23 @ : by Tanisha Barrera LPN) History of congestive heart failure Inflammatory arthritis Left wrist pain Pacemaker Prostatitis Surgical History (Reviewed 02/24/23 @ 11: by Tanisha Barrera LPN) No pertinent past surgical history Family History (Reviewed 02/24/23 @ : by Tanisha Barrera LPN) Father Diabetes Colonic polyp Hypertension Kidney disease Heart disease Dyslipidemia Coronary heart disease, Onset Age: 63 Mother Lung disease Lung cancer, Onset Age: 70 Denies family history of Ovarian cancer Prostate cancer Deep vein thrombosis Alzheimer disease Dementia Depression Myocardial infarction Breast cancer Colorectal cancer Pulmonary embolism Stroke Asthma Social History Smoking Status: Current every day smoker Tobacco Type: Cigarettes Age Started Using Tobacco: 17; Cigarettes Per Day: Reports 1 pack a week, hoping to eliminate all together.; Second Hand Exposure: No; Do You Dip or Chew Tobacco: No; Hx Alcohol Use: Yes Alcohol type: beer Alcohol Intake Frequency: Monthly or Less Alcohol Intake Frequency Comment: 4-5 beers monthly Hx Substance Use: No Preferred Language: Armenian Communication Ability: Effective Visual Impairment: Limited Hearing Ability: Use of Hearing Aid Assembly Department Supervisor Required: No Beliefs That Will Affect Care: None marital status: Current Living Situation: Spouse Current Living Situation Comment: spouse and daughter current occupational status: disabled How many Children do You have: 4 Feels Safe at Home: Yes Childhood Exposure to Second-Hand Smoke: Yes Diet: regular caffeine: Yes during the past year weight has: remained stable Dental Care, Regularly: No Physical Activity Frequency: Does not Exercise Seatbelt Use: always Sunscreen Use: Yes Do you think of yourself as: straight/heterosexual Gender Identity: Male Assistive Devices: Cane, Denture - Upper, Denture - Lower, Glasses, Hearing Aid - Bilateral and Special Shoe Results & Data Results & Data Vital Signs (Past 12 Hours) Vital Signs Temp Pulse Resp BP Pulse Ox O2 Del Method 04/19/23 19:23 36.7 C 81 18 142/64 H 96 Room Air PG Care Time/CCT Total # of Minutes Spent Total Time Spent with Patient: Total time spent is greater than 50% in coordination of care (as documented) at patient's floor/unit and/or counseling patient: Coding
--- NOTE | 2023-04-19 23:49 | History & Physical Report ---
Date of Service April 19, 2023 Assessment & Plan (1) Infection of great toe: (2) Diabetic infection of left foot: (3) Biventricular ICD (implantable cardioverter-defibrillator) in place: (4) Peripheral arterial disease: (5) S/P coronary artery stent placement: (6) S/P insertion of iliac artery stent: (7) Coronary artery disease: (8) Ischemic cardiomyopathy: (9) Diabetes mellitus: (10) Tobacco abuse: Plan Diabetic foot infection of left great toe- Sent to the emergency department for left great toe amputation and for revascularization surgery Vancomycin IV per pharmacokinetic monitoring Zosyn 4.5 g IV every 8 hours Patient reports having been at [facility] admission for 1 week, have been discharged 1 week ago on Augmentin, which he has been taking as directed, and is therefore considered a failure of outpatient treatment Consult podiatry Dr. Cruz Consult vascular surgery Dr. Layne CAD/PAD/iliac artery stent placement/coronary artery stent placement/status post CABG x 4/ischemic cardiomyopathy- Patient has been off of Eliquis for 3 to 4 days Patient has been off of Plavix since his hospitalization at [place] over 1 week ago Continue to hold both N.p.o. except essential medications after midnight Continue isosorbide mononitrate extended release 120 mg daily NSS + KCl 20 mill equivalents at 80 mL/h Follow serial CBC with differential, chemistry profile and magnesium level Arterial Dopplers outpatient on 04/12/2023 showed bilateral moderate PAD Diabetes mellitus- Reduce glargine from 44 to 14 units subcu at bedtime Placed on Accu-Cheks with NovoLog SSI History of Present Illness Chief Complaint: The patient is referred to the emergency department by vascular surgery Dr. Layne and podiatry Dr. Cruz for surgical removal of left great toe, and arterial revascularization for PAD Primary Care Provider: Domingo Valentino MD The patient is a 68-year-old male with a past medical history including prostatitis, inflammatory arthritis, gout, biventricular ICD placement, PAD, status post coronary artery stent placement, status post insertion of iliac artery stent, hypertension, CAD, ischemic cardiomyopathy, diabetes mellitus, hypercholesterolemia, status post CABG x 4, and tobacco abuse. He was referred to the emergency department due to failure of outpatient treatment for diabetic left great toe infection. Allergies Allergy/AdvReac Type Severity Reaction Status Date / Time No Known Allergies Allergy Verified 02/24/23 11:20 Home Medications Medication Instructions Recorded Confirmed Type aspirin 81 mg tablet,delayed 81 mg PO DAILY 04/20/22 04/12/23 History release (Adult Low Dose Aspirin) clopidogrel 75 mg tablet (Plavix) 75 mg PO DAILY #30 tabs 07/27/22 04/12/23 Rx ezetimibe 10 mg tablet 10 mg PO DAILY #90 tabs 07/31/22 04/12/23 Rx isosorbide mononitrate 120 mg 120 mg PO DAILY #90 tabs 07/31/22 04/12/23 Rx tablet,extended release 24 hr ranolazine 1,000 mg 1,000 mg PO BID #180 tabs 07/31/22 04/12/23 Rx tablet,extended release,12 hr colchicine 0.6 mg tablet 0.6 mg PO TID #270 tabs 08/31/22 04/12/23 Rx flash glucose sensor (FreeStyle #2 ea 10/28/22 02/24/23 Rx Sandy 2 Sensor kit) pen needle, diabetic 31 gauge x #100 ea 11/08/22 02/24/23 Rx 5/16" (BD Ultra-Fine Short Pen Needle) atorvastatin 80 mg tablet 80 mg PO .evening #90 tabs 12/01/22 04/12/23 Rx nitroglycerin 0.4 mg sublingual 0.4 mg sublingual Q5M PRN Pain #14 12/01/22 04/12/23 Rx tablet tabs trazodone 100 mg tablet 50 mg (1/2 x 100 mg) PO HS #45 tabs 12/09/22 04/12/23 Rx varenicline 1 mg tablet (Chantix) 1 mg PO BID #120 tabs 02/03/23 04/12/23 Rx allopurinol 300 mg tablet 600 mg (2 x 300 mg) PO .COMPLEX 02/26/23 04/12/23 Rx #60 tabs allopurinol 100 mg tablet 100 mg PO DAILY #90 tabs 03/22/23 04/12/23 Rx Lantus Solostar U-100 Insulin 100 44 unit (0.44 mL) subcut HS #15 mL 04/03/23 04/12/23 Rx unit/mL (3 mL) subcutaneous pen (insulin glargine) Lactobacillus acidophilus See Rx Instructions PO .COMPLEX 04/12/23 04/12/23 History [Acidophilus] amoxicillin 875 mg-potassium 1 tab PO BID 04/12/23 04/12/23 History clavulanate 125 mg tablet apixaban 5 mg tablet (Eliquis) 5 mg PO .as directed 04/12/23 04/12/23 History evolocumab 140 mg/mL subcutaneous 140 mg subcut .Every 2 weeks #2 mL 04/12/23 Rx pen injector (Loyda Brown) furosemide 20 mg tablet 40 mg PO DAILY 04/12/23 04/12/23 History Past Med/Surg History Medical History Prostatitis Left wrist pain Inflammatory arthritis Pacemaker 2021June 09 History of congestive heart failure Surgical History No pertinent past surgical history Family History Father , age 72 Diabetes Colonic polyp Hypertension Kidney disease Heart disease Dyslipidemia Coronary heart disease, Onset Age: 63 CABG Mother Lung disease Lung cancer, Onset Age: 70 small cell 71 Denies family history of Ovarian cancer Prostate cancer Deep vein thrombosis Alzheimer disease Dementia Depression Myocardial infarction Breast cancer Colorectal cancer Pulmonary embolism Stroke Asthma Social History Smoking Status: Current every day smoker Tobacco Type: Cigarettes Age Started Using Tobacco: 17; Cigarettes Per Day: Reports 1 pack a week, hoping to eliminate all together.; Second Hand Exposure: No; Do You Dip or Chew Tobacco: No; Hx Alcohol Use: Yes Alcohol type: beer Alcohol Intake Frequency: Monthly or Less Alcohol Intake Frequency Comment: 4-5 beers monthly Hx Substance Use: No Preferred Language: Nepali Communication Ability: Effective Visual Impairment: Limited Hearing Ability: Use of Hearing Aid Fish Icer Required: No Beliefs That Will Affect Care: None marital status: Current Living Situation: Spouse Current Living Situation Comment: spouse and daughter current occupational status: disabled How many Children do You have: 4 Feels Safe at Home: Yes Childhood Exposure to Second-Hand Smoke: Yes Diet: regular caffeine: Yes during the past year weight has: remained stable Dental Care, Regularly: No Physical Activity Frequency: Does not Exercise Seatbelt Use: always Sunscreen Use: Yes Do you think of yourself as: straight/heterosexual Gender Identity: Male Assistive Devices: Cane, Denture - Upper, Denture - Lower, Glasses, Hearing Aid - Bilateral and Special Shoe Review of Systems Review of Systems: The patient denies chest pain, palpitations, shortness of breath, dyspnea on exertion, cough, sore throat, fevers, chills, sweats, nausea, vomiting, diarrhea , constipation, abdominal pain, blood in urine or stool, dysuria, urinary frequency or urgency, lightheadedness, dizziness, headache, memory loss, loss of consciousness, abnormal bruising or bleeding, focal or generalized weakness, numbness or tingling in arms or legs, generalized arthralgias or myalgias, back or neck pain, or night sweats. The review of systems is otherwise negative other than for that already noted above, and at least 10 systems have been reviewed. Physical Exam Physical Exam: The patient is awake, alert and oriented 3, well developed and well nourished, normocephalic and atraumatic, lying in bed and in no acute distress. HEENT--PERRL, EOMI, mucous membranes and oropharynx normal. Neck--supple. No JVD. No bruits. Thyroid normal, trachea midline, no adenopathy. Heart--normal S1 and S2. No murmurs, rubs or gallops. Lungs--clear bilaterally, no respiratory distress, no accessory muscle use. Abdomen--normal bowel sounds and soft. Nontender. Nondistended, no hernias or masses, no organomegaly. Extremities--diminished pulses bilaterally. Left great toe erythema Dermatologic--normal except as noted for left great toe Neurologic--cranial nerves II through XII grossly intact. Rheumatologic--normal range of motion, except for left foot Psychiatric--normal affect. Results & Data Results & Data Vital Signs (Past 12 Hours) Vital Signs Temp Pulse Resp BP Pulse Ox O2 Del Method 04/19/23 19:23 36.7 C 81 18 142/64 H 96 Room Air Laboratory Results Laboratory Results WBC 6.59 K/ul (4.8-10.8) 04/20/23 03:32 RBC 3.91 M/uL (4.70-6.10) L 04/20/23 03:32 Hgb 11.8 g/dl (14.0-18.0) L 04/20/23 03:32 Hct 34.9 % (42.0-52.0) L 04/20/23 03:32 MCV 89.3 fL (80.0-100.0) 04/20/23 03:32 MCH 30.2 pg (25.0-34.0) 04/20/23 03:32 MCHC 33.8 g/dL (32.0-36.0) 04/20/23 03:32 RDW Std Deviation 44.3 fL (36.4-46.3) 04/20/23 03:32 RDW Coeff of Mayuri 13.7 % (11.5-14.5) 04/20/23 03:32 Plt Count 277 K/uL (130-400) 04/20/23 03:32 MPV 9.3 fL (9.4-12.4) L 04/20/23 03:32 Immature Gran % (Auto) 0.5 % 04/20/23 03:32 Neut % (Auto) 66.4 % 04/20/23 03:32 Lymph % (Auto) 20.3 % 04/20/23 03:32 [place] % (Auto) 9.9 % 04/20/23 03:32 Eos % (Auto) 2.3 % 04/20/23 03:32 Baso % (Auto) 0.6 % 04/20/23 03:32 Neut # (Auto) 4.38 K/uL (1.40-6.50) 04/20/23 03:32 Lymph # (Auto) 1.34 K/uL (1.20-3.40) 04/20/23 03:32 [place] # (Auto) 0.65 K/uL (0.11-0.59) H 04/20/23 03:32 Eos # (Auto) 0.15 K/uL (0.00-0.50) 04/20/23 03:32 Baso # (Auto) 0.04 K/uL (0.00-0.20) 04/20/23 03:32 Immature Gran # (Auto) 0.03 K/uL (0.01-0.20) 04/20/23 03:32 PT 10.8 Seconds (9.0-12.0) 04/19/23 20:10 INR 1.0 (0.9-1.1) 04/19/23 20:10 APTT 29.7 Seconds (21.0-31.0) 04/19/23 20:10 PTT Ratio 1.1 04/19/23 20:10 Sodium 136 mmol/L (136-145) 04/19/23 20:10 Potassium 4.4 mmol/L (3.5-5.1) 04/19/23 20:10 Chloride 103 mmol/L (98-107) 04/19/23 20:10 Carbon Dioxide 26 mmol/L (21-32) 04/19/23 20:10 Anion Gap 7 (3-11) 04/19/23 20:10 BUN 18 mg/dl (6-23) 04/19/23 20:10 Creatinine 0.94 mg/dl (0.6-1.4) 04/19/23 20:10 Est Cr Clr Drug Dosing 93.3 ml/min 04/19/23 20:10 Est GFR ( Amer) 96.8 ml/min 04/19/23 20:10 Est GFR (Non-Af Amer) 83.6 ml/min 04/19/23 20:10 BUN/Creatinine Ratio 19.1 (10-20) 04/19/23 20:10 Glucose 209 mg/dl (70-99(Fasting)) H 04/19/23 20:10 Lactate 1.6 mmol/L (0.4-2.0) 04/19/23 20:20 Calcium 9.4 mg/dl (8.6-10.3) 04/19/23 20:10 Total Bilirubin 0.8 mg/dl (0.2-1.0) 04/19/23 20:10 AST 11 U/L (13-39) L 04/19/23 20:10 ALT 12 U/L (7-52) 04/19/23 20:10 Alkaline Phosphatase 60 U/L (34-104) 04/19/23 20:10 Total Protein 7.3 gm/dl (6.0-8.3) 04/19/23 20:10 Albumin 3.6 gm/dl (3.4-5.0) 04/19/23 20:10 Globulin 3.7 gm/dl (2.5-4.0) 04/19/23 20:10 Albumin/Globulin Ratio 1.0 (0.9-2) 04/19/23 20:10 Procalcitonin < 0.05 ng/ml (0-0.5) 04/19/23 20:10 Code Status & VTE Plan Code Status Full code VTE Prophylaxis Plan VTE Prophylaxis will be ordered: Yes PG Care Time/CCT Total # of Minutes Spent Total Time Spent with Patient: Total time spent is greater than 50% in coordination of care (as documented) at patient's floor/unit and/or counseling patient: Coding Level of Care Code 64262 INT INP/OBS CARE 3/75MIN Diagnoses Infection of great toe L08.9 Diabetic infection of left foot E11.628; L08.9 Biventricular ICD (implantable cardioverter-defibrillator) in place Z95.810 Peripheral arterial disease I73.9 S/P coronary artery stent placement Z95.5 S/P insertion of iliac artery stent Z95.828 Coronary artery disease I25.10 Ischemic cardiomyopathy I25.5 Diabetes mellitus E11.9 Tobacco abuse Z72.0
[2023-04-20] MEDS ORDERED: VANCOMYCIN CONSULT ACTIVE PRN (01:06)
[2023-04-20] MEDS ORDERED: GLUCOSE 40% GEL 15 GM TUBE PO PRN (01:06)
[2023-04-20] MEDS ORDERED: DEXTROSE 50% 50 ML SYRINGE IV PRN (01:06)
[2023-04-20] MEDS ORDERED: NITROGLYCERIN SL 0.4 MG/TAB TAB SL PRN (01:06)
[2023-04-20] MEDS ORDERED: ONDANSETRON INJ 2 MG/ML 2 ML VIAL IV PRN (01:06)
[2023-04-20] MEDS ORDERED: GLUCAGON FOR INJ 1 MG VIAL SQ PRN (01:06)
[2023-04-20] MEDS ORDERED: GLUCOSE 10 TAB/TUBE PO PRN (01:06)
[2023-04-20] MEDS ORDERED: CARBOHYDRATES FOR HYPOGLYCEMIA PO PRN (01:06)
[2023-04-20] MEDS: NSS + 20MEQ KCL 20 MEQ/1,000 ML BAG IV SCH ×2 (02:45→15:14)
--- OUTSIDE RECORDS SUMMARY | 2023-04-20 03:28 | External Medical Summary | Continuity of Care Document ---
Author Name Unknown Organization [facility] [id number] [address] Address [address], [place] [id number] Care Team Providers Care Carbon Furnace Operator Helper Name Role Phone Domingo Valentino Primary Care Physician [phone] [id number] Date(s): 02/04/23 - 02/04/23 [facility] [address], [address] [place] [address] [phone] Discharge Disposition: Home or Self Care Attending Physician: NAVA Joseph Lynn Referring Physician: NAVA Joseph Lynn Allergies, Adverse Reactions, Alerts No Known Allergies Medications allopurinol 300 mg oral tablet TAKE 2 TABLETS BY MOUTH DAILY TAKE ALONG WITH THE 100MG TABLET FOR A TOTAL DOSE OF 700MG DAILY. Start Date: 07/21/22 Status: Ordered aspirin 81 mg oral delayed release tablet Start: 07/21/22 14:39:00 EST, 1 tab, PO, Daily Start Date: 07/21/22 Status: Ordered atorvastatin 80 mg oral tablet TAKE 1 TABLET EVERY DAY Start Date: 07/21/22 Status: Ordered carvedilol 6.25 mg oral tablet TAKE 1 TABLET TWICE DAILY Start Date: 07/21/22 Status: Ordered ciprofloxacin 500 mg oral tablet Start: 08/20/22 13:34:00 EDT, 1 tab, PO, q12h Start Date: 08/20/22 Status: Ordered clopidogrel 75 mg oral tablet Start: 08/20/22 13:34:00 EDT, 1 tab, PO, Daily Start Date: 08/20/22 Status: Ordered DULoxetine 30 mg oral delayed release capsule Start: 07/21/22 14:37:00 EST, 1 cap, PO, Daily Start Date: 07/21/22 Status: Ordered Entresto 49 mg-51 mg oral tablet TAKE 1 TABLET TWICE DAILY Start Date: 07/21/22 Status: Ordered ergocalciferol 1.25 mg (50,000 intl units) oral capsule TAKE 1 CAPSULE BY MOUTH ONE TIME PER WEEK Start Date: 07/21/22 Status: Ordered ezetimibe 10 mg oral tablet TAKE 1 TABLET EVERY DAY Start Date: 07/21/22 Status: Ordered Insulin Aspart FlexPen 100 units/mL injectable solution Start: 07/21/22 14:37:00 EST, 5 unit =, subQ, ac Start Date: 07/21/22 Status: Ordered isosorbide mononitrate 120 mg oral tablet, extended release Start: 07/21/22 14:37:00 EST, 1 tab, PO, qAM Start Date: 07/21/22 Status: Ordered Jardiance 25 mg oral tablet TAKE 1 TABLET BY MOUTH DAILY. Start Date: 07/21/22 Status: Ordered Lantus Solostar Pen 100 units/mL subcutaneous solution Start: 07/21/22 14:37:00 EST, 65 unit =, subQ, qPM Start Date: 07/21/22 Status: Ordered metFORMIN 750 mg oral tablet, extended release Start: 07/21/22 14:36:00 EST, See Instructions, 2 tablets po q AM, 1 tablet po q PM Start Date: 07/21/22 Status: Ordered multivitamin Start: 07/21/22 14:40:00 EST, 1 tab, PO, Daily Start Date: 07/21/22 Status: Ordered nitroglycerin 0.[address] 1 TAB UNDER TONGUE EVERY 5MIN NEEDED FOR CHEST PAIN, DIAL 911 IF UNRESOLVED AFTER 1 DOSE Start Date: 07/21/22 Status: Ordered pantoprazole 40 mg oral delayed release tablet Start: 07/21/22 14:36:00 EST, 1 tab, PO, Daily Start Date: 07/21/22 Status: Ordered predniSONE 5 mg oral tablet TAKE 1 TABLET BY MOUTH EVERY DAY Start Date: 07/21/22 Status: Ordered ranolazine 1000 mg oral tablet, extended release Start: 07/21/22 14:36:00 EST, 1 tab, PO, bid Start Date: 07/21/22 Status: Ordered spironolactone 25 mg oral tablet Start: 07/21/22 14:36:00 EST, See Instructions, 0.5 tab po daily Start Date: 07/21/22 Status: Ordered traZODone 100 mg oral tablet Start: 07/21/22 14:36:00 EST, 1 tab, PO, qhs Start Date: 07/21/22 Status: Ordered varenicline 0.5 mg-1 mg oral tablet 0.5 MG DAILY X 3 DAYS THEN 0.5 MG 2 TIMES A DAY X 4 DAYS THEN 1 MG 2X/DAY THEREAFTER Start Date: 07/21/22 Status: Ordered Vascepa 1 g oral capsule TAKE 2 CAPSULES TWICE A DAY Start Date: 07/21/22 Status: Ordered Problem List Condition Confirmation Course Effective Dates Status Health St atus Informant (atherosclerosis) Confirmed Active Peripheral arterial disease Confirmed Active Tobacco user Confirmed Active Procedures Procedure Date Related Diagnosis Body Site Status lle angio w lithotripsy pop, travel pta/stent pop and SFA 07/27/22 Completed Results Radiology Reports * Exam Date Time Procedure Performing Provider Status 02/04/23 10:02 AM VL Lower Ext Arterial Duplex Bildevendra weeks WednesdayZulay; Final Notes: (VL Lower Ext Arterial Duplex Bilateral) Reason For Exam: PAD VL Lower Ext Arterial Duplex Bilateral [facility] FINAL REPORT Name: DOMINGO HIDALGO : 1955 Visit: [id number] Date: 04 Feb 2023 TYPE OF TEST: Extremity Arterial Duplex REASON FOR TEST PAD INTERPRETATION/FINDINGS Arterial duplex imaging performed of the bilateral lower extremities: RIGHT LE. No hemodynamically significant stenosis identified in the distal external iliac, common femoral or proximal profunda femoris arteries. 2. Patent superficial femoral artery-popliteal artery (below knee) bypass graft with no evidence of stenosis at the proximal anastomosis, throughout the graft or at the distal anastomosis. Patent distal popliteal outflow artery. 3. 75-99% stenosis of the proximal posterior tibial artery and 50-74% stenosis of the distal posterior tibial artery. 4. No hemodynamically significant stenosis identified in the tibio-peroneal trunk, anterior tibial or peroneal arteries. 5. The right ankle/brachial index is 0.99 (normal). LEFT LE. No hemodynamically significant stenosis identified in the distal external iliac, common femoral or proximal profunda femoris arteries. 2. Patent stented superficial femoral artery and proximal popliteal artery with no evidence of restenosis. 3. Short segment occlusion of the proximal anterior tibial artery with reconstitution distally. 4. No hemodynamically significant stenosis identified in the tibio-peroneal trunk, posterior tibial or peroneal arteries. 5. The left ankle/brachial index is 0.99 (normal). No previous studies available for comparison. IMPRESSION/COMMENTS I have personally reviewed the data relevant to the interpretation of this study. TECHNOLOGIST: Zulay Orozco, ANGE, RVT PHYSICIAN: Dyan Degroot M.D. Signed: 02/04/2023 12:18 PM Final Dictated by:MD Degroot Kristine L Dictated DT/TM:02/04/2023 12:18 Signed by:MD Degroot Kristine L Signed (Electronic Signature):02/04/2023 12:18 Transcribed by:PIEDAD Social History Social History Type Response Tobacco Current every day sm oker, Cigarettes Smoking Status Current every day li ght smoker Sex Male Patient Care team information Care Team Personnel Name: NAVA Joseph Lynn Position: Physician Junior Qa Analyst Exempt - Vasc Surg Member Role: Lifetime Relationship Address: Address: [address] [place] [id number] [place] Name: MD Valentino Michael John Position: Referring DIRECT Member Role: Primary Care Provider Address: Address: [address] [place] [id number] [place] Care Team Related Persons Name: MARILY HIDALGO Address: [address] [phone]
--- OUTSIDE RECORDS SUMMARY | 2023-04-20 03:28 | External Medical Summary | Continuity of Care Document ---
Author Name Unknown Organization [facility] [address] [facility] Address [address] [place], [place] [id number] Care Team Providers Care Application Manager Name Role Phone Domingo Valentino Primary Care Physician [phone] Encounter [facility] [id number] Date(s): 02/04/23 - 02/04/23 [facility] [address], [address] [place] [address] [phone] Encounter Diagnosis Peripheral arterial disease(Discharge Diagnosis) - 02/04/23 Discharge Disposition: Home or Self Care Attending Physician: MD Layne Eugene J Referring Physician: MD Valentino Michael John Allergies, Adverse Reactions, Alerts No Known Allergies Assessment and Plan Extracted from: Title:Clinical Document Author:NAVA Joseph Lynn Date:02/04/23 I OUTPATIENT NOTE Name: DOMINGO HIDALGO Patient Number: [id number] : 1955 Date of Service: 02/04/2023 Chief Complaint: _Follow-up for PAD HPI: _Mr. Hidalgo is a middle-age male who presents to Dr. Layne's vascular surgery clinic today for a 3-month follow-up visit regarding his history of peripheral arterial disease. As you may remember the patient is status post right leg femoral to popliteal artery bypass done at an outside facility about 6 or 7 years ago. He also more recently underwent a left leg angiography with INTERIOR SPECIALIST and stenting and lithotripsy of his SFA and popliteal arteries in July 2022. Patient states overall he feels he is doing very well. 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 He does not feel that this keeps him from doing his normal daily activities. He also has some low back problems and has been putting off undergoing a lumbar decompression surgery due to him being on Plavix since his most recent stenting. Patient denies any new complaints of worsening claudication, rest pain, nonhealing ulcer ulcers, discoloration of the feet or toes. His arterial ultrasound of the lower extremities demonstrates a patent right SFA to popliteal artery bypass with a 75% stenosis of the proximal post tib and a 50% stenosis of the distal posted. His left leg demonstrates patent SFA and popliteal artery stents and he has bilateral ABIs of 0.99. Current Home Meds: (Last Updated 08/20 13:35) DULoxetine (DULoxetine 30 mg oral delayed release capsule) 30 mg PO Daily allopurinol (allopurinol 300 mg oral tablet) TAKE 2 TABLETS BY MOUTH DAILY TAKE ALONG WITH THE 100MG TABLET FOR A TOTAL DOSE OF 700MG DAILY. aspirin (aspirin 81 mg oral delayed release tablet) 81 mg PO Daily atorvastatin (atorvastatin 80 mg oral tablet) TAKE 1 TABLET EVERY DAY carvedilol (carvedilol 6.25 mg oral tablet) TAKE 1 TABLET TWICE DAILY ciprofloxacin (ciprofloxacin 500 mg oral tablet) 500 mg PO q12h clopidogrel (clopidogrel 75 mg oral tablet) 75 mg PO Daily empagliflozin (Jardiance 25 mg oral tablet) TAKE 1 TABLET BY MOUTH DAILY. ergocalciferol (ergocalciferol 1.25 mg (50,000 intl units) oral capsule) TAKE 1 CAPSULE BY MOUTH ONE TIME PER WEEK ezetimibe (ezetimibe 10 mg oral tablet) TAKE 1 TABLET EVERY DAY icosapent (Vascepa 1 g oral capsule) TAKE 2 CAPSULES TWICE A DAY insulin aspart (Insulin Aspart FlexPen 100 units/mL injectable solution) 5 unit subQ ac insulin glargine (Lantus Solostar Pen 100 units/mL subcutaneous solution) 65 unit subQ qPM isosorbide mononitrate (isosorbide mononitrate 120 mg oral tablet, extended release) 120 mg PO qAM IMDUR (isosorbide mononitrate) is a SUSTAINED RELEASE tablet typically dosed daily. Do not confuse with ISORDIL (isosorbide dinitrate) commonly dosed three times daily. Amadeo Knapp 07/21 14:38 metFORMIN (metFORMIN 750 mg oral tablet, extended release) 2 tablets po q AM, 1 tablet po q PM multivitamin 1 tab PO Daily nitroglycerin (nitroglycerin 0.4 mg sublingual tablet) PLACE 1 TAB UNDER TONGUE EVERY 5MIN NEEDED FOR CHEST PAIN, DIAL 911 IF UNRESOLVED AFTER 1 DOSE pantoprazole (pantoprazole 40 mg oral delayed release tablet) 40 mg PO Daily predniSONE (predniSONE 5 mg oral tablet) TAKE 1 TABLET BY MOUTH EVERY DAY ranolazine (ranolazine 1000 mg oral tablet, extended release) 1,000 mg PO bid sacubitril-valsartan (Entresto 49 mg-51 mg oral tablet) TAKE 1 TABLET TWICE DAILY spironolactone (spironolactone 25 mg oral tablet) 0.5 tab po daily traZODone (traZODone 100 mg oral tablet) 100 mg PO qhs varenicline (varenicline 0.5 mg-1 mg oral tablet) 0.5 MG DAILY X 3 DAYS THEN 0.5 MG 2 TIMES A DAY X 4 DAYS THEN 1 MG 2X/DAY THEREAFTER Allergies and Sensitivities: NKA Past Medical History: Problems: Tobacco user Peripheral arterial disease (atherosclerosis) OBJECTIVE Vitals: Last Updated 02/04/23 10:16 Date Temp BP Location Pulse RR SpO2 Pain 02/04/23 0 02/04/23 118/64 Left Arm 67 97 08/20/22 160/62 Left Arm 78 98 Vital Signs are the last 3 documented. No Orthostatic Data Available Height and Weight: Last Updated 07/21/22 14:58 Date BMI Wt(kg) Wt(lb) Method Ht(cm) (ft-in) Method 07/21/22 105.6 232 Heights and Weights are the last 3 documented. Physical Exam Constitutional: In general patient is a healthy-appearing well-nourished well-developed middle-aged male no distress. He is alert and oriented without any focal deficits. His heart is regular, his lungs are clear. His abdomen is soft nontender with no active bowel sounds in 4 quadrants. Femoral pulses are +2. Lower extremity distal pulses are +2 on the right +2 on the left. He has brisk capillary fill and no sign of distal ischemia. ASSESSMENT: _ PLAN: _ 1 ) _peripheral arterial disease Overall Mr. Hidalgo is doing well since his most recent procedure. His right leg bypass remains patent, and his left leg stents also remain patent. Patient is concerned about taking Plavix long-term due to easy bleeding and some bruising whenever he bumps himself. He was advised that he should remain on this lifelong to maintain patency of his stents in the left leg, since he is already undergone multiple angiography procedures. He was advised, though, that since it has been 6 months since his procedure, he may interrupt his Plavix for any lumbar spine surgeries as needed, and then restart whenever deemed safe. Patient states he plans to continue putting off any back surgeries until he absolutely has to. We would like to have him return here in 6 months for reevaluation with an ultrasound of his bilateral lower extremity arteries prior to that visit. He is advised to call us with any questions or concerns. He is agreeable to this plan. Thank you for letting us participate in the care of this patient. Medications allopurinol 300 mg oral tablet TAKE [...] A DAY Start Date: 07/21/22 Status: Ordered Mental Status 02/04/23 Barriers to Learning one year None evide nt Mandatory Health Literacy Documentation Yes Health Literacy Communication Barriers N ever Primary Language Yoruba Problem List Condition Confirmation Course Effective Dates Status Health St atus Informant (atherosclerosis) Confirmed Active Peripheral arterial disease Confirmed Active Tobacco user Confirmed Active Diagnosis Diagnosis Type Effective Dates Health Status Clinical Service Informant Peripheral arterial disease Discharge Diagnosis 02/04/23 Procedures Procedure Date Related Diagnosis Body Site Status lle angio w lithotripsy pop, 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 and SFA 07/27/22 Completed Vital Signs Most recent to oldest [Reference Range]: 1 Heart Rate 67 bpm (02/04/23 10:14 AM) Blood Pressure 118/64mmHg (02/04/23 10:14 AM) Cuff Pulse Pressure 54 mmHg (02/04/23 10:14 AM) BP Location # 1 Left Arm (02/04/23 10:14 AM) Social History Social History Type Response Tobacco Current every day sm oker, Cigarettes Smoking Status Current every day li ght smoker Sex Male [facility] Outpt Note * NAVA Joseph Lynn: PERFORM Event Display: [facility] Outpt Note Authored Date: [id number] [facility] OUTPATIENT NOTE Name: DOMINGO HIDALGO Patient Number: [id number] : 1955 Date of Service: 02/04/2023 Chief Complaint: _Follow-up for PAD HPI: _Mr. Hidalgo is a middle-age male who presents to Dr. Layne's vascular surgery clinic today for a 3-month follow-up visit regarding his history of peripheral arterial disease. As you may remember the patient is status post right leg femoral to popliteal artery bypass done at an outside facility about 6 or 7 years ago. He also more recently underwent a left leg angiography with INTERIOR SPECIALIST and stenting and lithotripsy of his SFA and popliteal arteries in July 2022. Patient states overall he feels he is doing very well. 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 He does n ot feel that this keeps him from doing his normal daily activities. He also has some low back problems and has been putting off undergoing a lumbar decompression surgery due to him being on Plavix since his most recent stenting. Patient denies any new complaints of worsening claudication, rest pain, nonhealing ulcer ulcers, discoloration of the feet or toes. His arterial ultrasound of the lower extremities demonstrates a patent right SFA to popliteal artery bypass with a 75% stenosis of the proximal post tib and a 50% stenosis of the distal posted. His left leg demonstrates patent SFA and popliteal artery stents and he has bilateral ABIs of 0.99. Current Home Meds: (Last Updated 08/20 13:35) DULoxetine (DULoxetine 30 mg oral delayed release capsule) 30 mg PO Daily allopurinol (allopurinol 300 mg oral tablet) TAKE 2 TABLETS BY MOUTH DAILY TAKE ALONG WITH THE 100MG TABLET FOR A TOTAL DOSE OF 700MG DAILY. aspirin (aspirin 81 mg oral delayed release tablet) 81 mg PO Daily atorvastatin (atorvastatin 80 mg oral tablet) TAKE 1 TABLET EVERY DAY carvedilol (carvedilol 6.25 mg oral tablet) TAKE 1 TABLET TWICE DAILY ciprofloxacin (ciprofloxacin 500 mg oral tablet) 500 mg PO q12h clopidogrel (clopidogrel 75 mg oral tablet) 75 mg PO Daily empagliflozin (Jardiance 25 mg oral tablet) TAKE 1 TABLET BY MOUTH DAILY. ergocalciferol (ergocalciferol 1.25 mg (50,000 intl units) oral capsule) TAKE 1 CAPSULE BY MOUTH ONE TIME PER WEEK ezetimibe (ezetimibe 10 mg oral tablet) TAKE 1 TABLET EVERY DAY icosapent (Vascepa 1 g oral capsule) TAKE 2 CAPSULES TWICE A DAY insulin aspart (Insulin Aspart FlexPen 100 units/mL injectable solution) 5 unit subQ ac insulin glargine (Lantus Solostar Pen 100 units/mL subcutaneous solution) 65 unit subQ qPM isosorbide mononitrate (isosorbide mononitrate 120 mg oral tablet, extended release) 120 mg PO qAM IMDUR (isosorbide mononitrate) is a SUSTAINED RELEASE tablet typically dosed daily. Do not confuse with ISORDIL (isosorbide dinitrate) commonly dosed three times daily. Amadeo Knapp 07/21 14:38 metFORMIN (metFORMIN 750 mg oral tablet, extended release) 2 tablets po q AM, 1 tablet po q PM multivitamin 1 tab PO Daily nitroglycerin (nitroglycerin 0.4 mg sublingual tablet) PLACE 1 TAB UNDER TONGUE EVERY 5MIN NEEDED FOR CHEST PAIN, DIAL 911 IF UNRESOLVED AFTER 1 DOSE pantoprazole (pantoprazole 40 mg oral delayed release tablet) 40 mg PO Daily predniSONE (predniSONE 5 mg oral tablet) TAKE 1 TABLET BY MOUTH EVERY DAY ranolazine (ranolazine 1000 mg oral tablet, extended release) 1,000 mg PO bid sacubitril-valsartan (Entresto 49 mg-51 mg oral tablet) TAKE 1 TABLET TWICE DAILY spironolactone (spironolactone 25 mg oral tablet) 0.5 tab po daily traZODone (traZODone 100 mg oral tablet) 100 mg PO qhs varenicline (varenicline 0.5 mg-1 mg oral tablet) 0.5 MG DAILY X 3 DAYS THEN 0.5 MG 2 TIMES A DAY X4 DAYS THEN 1 MG 2X/DAY THEREAFTER Allergies and Sensitivities: NKA Past Medical History: Problems: Tobacco user Peripheral arterial disease (atherosclerosis) OBJECTIVE Vitals: Last Updated 02/04/23 10:16 Date Temp BP Location Pulse RR SpO2 Pain 02/04/23 0 02/04/23 118/64 Left Arm 67 97 08/20/22 160/62 Left Arm 78 98 Vital Signs are the last 3 documented. No Orthostatic Data Available Height and Weight: Last Updated 07/21/22 14:58 Date BMI Wt(kg) Wt(lb) Method Ht(cm) (ft-in) Method 07/21/22 105.6 232 Heights and Weights are the last 3 documented. Physical Exam Constitutional: In general patient is a healthy-appearing well-nourished well- developed middle-agedmale no distress. He is alert and oriented without any focal deficits. His heart is regular, his lungs are clear. His abdomen is soft nontender with no active bowel sounds in 4 quadrants. Femoral pulses are +2. Lower extremity distal pulses are +2 on the right +2 on the left. He has brisk capillaryfill and no sign of distal ischemia. ASSESSMENT: _ PLAN: _ 1 ) _peripheral arterial disease Overall Mr. Hidalgo is doing well since his most recent procedure. His right leg bypass remains patent, and his left leg stents also remain patent. Patient is concerned about taking Plavix long-term due to easy bleeding and some bruising whenever he bumps himself. He was advised that he should remain on this lifelong to maintain patency of his stents in the left leg, since he is already undergone multiple angiography procedures. He was advised, though, that since it has been 6 months since his procedure, he may interrupt his Plavix for any lumbar spine surgeries as needed, and then restart whenever deemed safe. Patient states he plans to continue putting off any back surgeries until he absolutely has to. We would like to have him return here in 6 months for reevaluation with an ultrasound of his bilateral lower extremity arteries prior to that visit. He is advised to call us with any questions or concerns. He is agreeable to this plan. Thank you for letting us participate in the care of this patient. Electronic Signature on File CC: Domingo Valentino MD [address] [place] [id number] * Electronically Reviewed/Signed by: Krystle Joseph PA-C Author Signature Dt/Tm:02/04/2023 10:40 AM [facility] [place] 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
[2023-04-20 04:38] LABS: Basophils # (auto) 0.04 K/uL (0.00-0.20); Basophils % (auto) 0.6 %; Eosinophils # (auto) 0.15 K/uL (0.00-0.50); Eosinophils % (auto) 2.3 %; Hematocrit (blood only) 34.9 % (42.0-52.0); Hemoglobin 11.8 g/dl (14.0-18.0); Immature Granulocytes # (auto) 0.03 K/uL (0.01-0.20); Immature Granulocytes % (auto) 0.5 %; Lymphocytes # (auto) 1.34 K/uL (1.20-3.40); Lymphocytes % (auto) 20.3 %; Mean Corpuscular Hemoglobin 30.2 pg (25.0-34.0); Mean Corpuscular Hgb Conc 33.8 g/dL (32.0-36.0); Mean Corpuscular Volume 89.3 fL (80.0-100.0); Mean Platelet Volume 9.3 fL (9.4-12.4); Monocytes # (auto) 0.65 K/uL (0.11-0.59); Monocytes % (auto) 9.9 %; Neutrophils # (auto) 4.38 K/uL (1.40-6.50); Neutrophils % (auto) 66.4 %; Platelet Count 277 K/uL (130-400); RDW Coefficient of Variation 13.7 % (11.5-14.5); RDW Standard Deviation 44.3 fL (36.4-46.3); Red Blood Count 3.91 M/uL (4.70-6.10); White Blood Count 6.59 K/ul (4.8-10.8)
[2023-04-20 04:57] LABS: Albumin Level 3.4 gm/dl (3.4-5.0); BUN Creatinine Ratio 22.1 (10-20); Bilirubin,Total 0.6 mg/dl (0.2-1.0); Calcium 9.2 mg/dl (8.6-10.3); Est GFR (Non-African American) 89.7 ml/min; Globulin 3.3 gm/dl (2.5-4.0); Magnesium 1.5 mg/dl (1.7-2.4); Potassium 4.3 mmol/L (3.5-5.1); Total Protein 6.7 gm/dl (6.0-8.3)
[2023-04-20] MEDS: PIPERACILLIN/TAZOBACTAM 4.5 GM in DEXTROSE 5% MINI-B 100 ML IV SCH ×3 (06:49→22:47)
[2023-04-20] MEDS ORDERED: VANCOMYCIN HCL 1,500 MG in SODIUM CHLORIDE 0.9% 500 ML IV SCH (08:00)
[2023-04-20] MEDS: ISOSORBIDE MONO EXTENDED REL 60 MG TABCR PO SCH (08:05)
[2023-04-20 08:55] LABS: Estimated Average Glucose 171 mg/dl; Hemoglobin A1C 7.6 % (4.5-5.6)
[2023-04-20] MEDS: INSULIN ASPART PER UNIT CHARGE SC SCH ×3 (09:46→17:43)
[2023-04-20] MEDS: VANCOMYCIN HCL 1,250 MG in SODIUM CHLORIDE 0.9% 250 ML IV SCH ×2 (10:44→21:10)
--- NOTE | 2023-04-20 10:51 | Pharmacy Report ---
Pharmacy PK ABX Note - Date of Service April 20, 2023 - Assessment and Plan Assessment 68 year old M receiving vancomycin/zosyn for treatment of left great toe infection, possible need for amputation/revasc surgery. Pertinent microbiologic data includes: Blood cultures/Left toe culture pending. Previous use of augmentin in the last week. Plan Vancomycin * Loading dose: 2250 mg IV x 1 * Maintenance dose: 1250 mg IV every 12 hours * Regimen is predicted to achieve target AUC/SONJA of 400-600 mg/L.hr * Random level ordered for 12/7 AM Pharmacy will continue to follow and will adjust dose/frequency as necessary. Thank you. Pharmacy has transitioned to AUC monitoring for vancomycin. AUC/SONJA is the preferred PK/PD target and is associated with decreased risk of nephrotoxicity compared to traditional trough targets.
[2023-04-20] MEDS: MAGNESIUM SULFATE / D5W 1 GM/100 ML BAG IV SCH ×2 (12:35→14:41)
[2023-04-20] MEDS: MoRPHine SULFATE 2 MG/ML CARP IV PRN ×4 (13:15→23:52)
--- NOTE | 2023-04-20 14:16 | Cardiology Consultation ---
Date of Consultation April 20, 2023 Assessment & Plan (1) Diabetic infection of left foot: (2) Preop cardiovascular exam: (3) ASCVD (arteriosclerotic cardiovascular disease): (4) Ischemic cardiomyopathy: (5) Presence of combination internal cardiac defibrillator (ICD) and pacemaker: (6) HFrEF (heart failure with reduced ejection fraction): (7) Tobacco abuse: Plan 68 year old male referred for preoperative cardiology consultation prior to left great toe amputation and lower extremity bypass surgery by Dr. Layne. Patient with history of severe ischemic cardiomyopathy, LVEF 25%, status post remote coronary artery bypass grafting and biventricular pacemaker defibrillator implantation using a St. Db/Guevara device. Chronic tobacco use noted along with recent hospitalization at [facility]. Patient appears compensated from a congestive heart failure standpoint. He is maintaining sinus rhythm by history and review of telemetry, chronically unable to achieve 4 Mets without experiencing dyspnea. Options of management discussed. Estimated risk of adverse outcome with this non-cardiac surgery is high however, in my opinion, further cardiac evaluation at this time would not likely reduce his risk of perioperative complication(s) and the procedure is necessary. Recommend uninterrupted continuation of beta-jennifer therapy (metoprolol succinate 25 mg/day), isosorbide, aspirin 81 mg/day, and high intensity statin therapy. Hold furosemide the AM of procedure, resuming postoperatively as hemodynamics permit. Standard pacemaker defibrillator precautions should be taken. Consider resumption of anticoagulation as soon as determined to be safe postoperatively noting the right lower extremity DVT observed at [facility] last month. Recommend reinstitution of guideline directed medical therapy (Entresto, spironolactone, Empagliflozin (Jardiance) as able postoperatively. Tobacco cessation mandated. Further recommendations as per Dr. Ramirez. Supervising Physician Co-Signing Physician Notes Patient was seen and personally examined, chart inpatient and outpatient records reviewed Complex 68-year-old male with diffuse vascular disease status post remote coronary bypass grafting 2011, chronic class II 3 angina pectoris. Reduced ejection fraction EF 25 to 30% with ischemic cardiomyopathy and class II III congestive heart failure currently compensated Recent [id number]/2023 with osteomyelitis of left toe. Patient treated for mild volume overload/heart failure decompensation though with reduced ejection fraction on treatment. Predominant treatment aimed at underlying infection and vascular compromise with left foot Spironolactone and Entresto held due to transient renal insufficient He presents now with concerns regarding threatened limb, gangrenous changes of the left great toe. Planned toe amputation possible revascularization left lower extremity . Surgery indicated and necessary As above no contraindications though to be performed at increased risk secondary to underlying morbidities Indwelling pacer defibrillator biventricular functioning appropriately No additional testing warranted though will follow postoperatively optimize medi tea therapies. Renal function will need to be followed closely given recent contrast loads. History of Present Illness Reason for Consultation: Preoperative cardiology evaluation for leg bypass Requesting Physician: Dr. Hernan Layne Attending Physician: Benito Garsia MD History of Present Illness Mr. Domingo Vila Sr. is a 68 year old male who was referred to the [facility] ER due to a diabetic left great toe infection, after failing outpatient treatment. Patient notes plans for left great toe amputation and possible bypass grafting by Dr. Layne who has requested this Cardiology Consultation. Patient hospitalized at [facility] 04/06/2023 to 04/09/2023 with left lower extremity cellulitis, possible left great toe osteomyelitis. Imaging notable for an age-indeterminate DVT of the right common femoral vein and associated superficial venous thrombosis of the proximal GSV remnant for which Eliquis anticoagulation was prescribed. Cardiology was involved during his hospitalization due to acute decompensated systolic congestive heart failure, receiving IV diuretics with improvement, resultant worsening renal dysfunction. Carvedilol, Entresto, spironolactone and metformin were held due to acute renal dysfunction and relative hypotension. Imdur dosing decreased. April 06, 2023 TTE Interpretation Summary (as per Dr. Bright): Calculated LV ejection Fraction = 26% (bi-plane method of discs). The left ventricular cavity is severely dilated (LVED volume >100 ml/m^2). The right ventricular cavity size is enlarged. Mild to Moderate mitral regurgitation is present. No pericardial effusion is noted. Indeterminate IVC size and collapsibility. Right atrial pressure estimated at 8 mmHg Patient with chronic stable chest pain. He is unable to ambulate one flight of stairs chronically due to dyspnea. No tachypalpitations. No device alarms or discharges. Orthopnea/PND improved following hospitalization at [facility]. No dizziness, near syncope, or syncope. No current subjective fevers or chills. No hemoptysis, melena, hematochezia, or hematuria. Past Medical and Surgical History: ASCVD Status post CABG x4 in 2011 at [facility] Status post PCI of the ? OM1 with TANIA x 2, September 2020. History of tracheostomy after CABG Severe ischemic cardiomyopathy, LVEF 25%, NYHA Class III Status post BiV ICD implantation with generator change in 2021 (Guevara) Hypertension Dyslipidemia Type II diabetes mellitus CKD Chronic tobacco abuse Inflammatory arthritis Gout PAD Status post right leg femoral to popliteal artery bypass Status post left leg angiography w/ VOICE WRITING REPORTER and stenting/lithotripsy SFA & popliteal arteries 07/2022 Status post right 2nd toe amputation Prostatitis Family History: Positive for CAD in his father who was a [place] exposed to Agent [place]. Mother with lung cancer. Social History: Reformed smoker having quit yesterday, chronically smoking 1 ppd x 50 years. Alcohol: Social, 3-4 beers every 3-4 weeks. No illegal drug use. . Retired, moving from [place] to [place] approximately one year ago. 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 Allergies Allergy/AdvReac Type Severity Reaction Status Date / Time No Known Allergies Allergy Verified 04/20/23 08:31 Home Medications Medication Instructions Recorded Confirmed Type aspirin 81 mg tablet,delayed 81 mg PO DAILY 04/20/22 04/20/23 History release (Adult Low Dose Aspirin) ezetimibe 10 mg tablet 10 mg PO DAILY #90 tabs 07/31/22 04/20/23 Rx isosorbide mononitrate 120 mg 120 mg PO DAILY #90 tabs 07/31/22 04/20/23 Rx tablet,extended release 24 hr ranolazine 1,000 mg 1,000 mg PO BID #180 tabs 07/31/22 04/20/23 Rx tablet,extended release,12 hr colchicine 0.6 mg tablet 0.6 mg PO TID #270 tabs 08/31/22 04/20/23 Rx flash glucose sensor (FreeStyle #2 ea 10/28/22 02/24/23 Rx Sandy 2 Sensor kit) pen needle, diabetic 31 gauge x #100 ea 11/08/22 02/24/23 Rx 5/16" (BD Ultra-Fine Short Pen Needle) atorvastatin 80 mg tablet 80 mg PO .evening #90 tabs 12/01/22 04/20/23 Rx nitroglycerin 0.4 mg sublingual 0.4 mg sublingual Q5M PRN Pain #14 12/01/22 04/20/23 Rx tablet tabs trazodone 100 mg tablet 50 mg (1/2 x 100 mg) PO HS #45 tabs 12/09/22 04/20/23 Rx varenicline 1 mg tablet (Chantix) 1 mg PO BID #120 tabs 02/03/23 04/20/23 Rx allopurinol 300 mg tablet 600 mg (2 x 300 mg) PO .COMPLEX 02/26/23 04/20/23 Rx #60 tabs allopurinol 100 mg tablet 100 mg PO DAILY #90 tabs 03/22/23 04/20/23 Rx Lantus Solostar U-100 Insulin 100 44 unit (0.44 mL) subcut HS #15 mL 04/03/23 04/20/23 Rx unit/mL (3 mL) subcutaneous pen (insulin glargine) amoxicillin 875 mg-potassium 1 tab PO BID 04/12/23 04/20/23 History clavulanate 125 mg tablet apixaban 5 mg tablet (Eliquis) 5 mg PO BID 04/12/23 04/20/23 History evolocumab 140 mg/mL subcutaneous 140 mg subcut .Every 2 weeks #2 mL 04/12/23 04/20/23 Rx pen injector (Loyda Brown) furosemide 20 mg tablet 40 mg PO DAILY 04/12/23 04/20/23 History metoprolol succinate 25 mg 25 mg PO HS 04/20/23 04/20/23 History tablet,extended release 24 hr spironolactone 25 mg tablet 12.5 mg PO DAILY 04/20/23 04/20/23 History Patient History Medical History Prostatitis Left wrist pain Inflammatory arthritis Pacemaker 2021June 09 History of congestive heart failure Surgical History No pertinent past surgical history Family History Father , age 72 Diabetes Colonic polyp Hypertension Kidney disease Heart disease Dyslipidemia Coronary heart disease, Onset Age: 63 CABG Mother Lung disease Lung cancer, Onset Age: 70 small cell 72 Denies family history of Ovarian cancer Prostate cancer Deep vein thrombosis Alzheimer disease Dementia Depression Myocardial infarction Breast cancer Colorectal cancer Pulmonary embolism Stroke Asthma Social History Smoking Status: Former smoker Tobacco Type: Cigarettes Age Started Using Tobacco: 17; Cigarettes Per Day: 5/day; Second Hand Exposure: Yes; Do You Dip or Chew Tobacco: No; Tobacco Cessation Education Requested by Patient: Yes Hx Alcohol Use: Yes Alcohol type: beer Alcohol Intake Frequency: Monthly or Less Alcohol Intake Frequency Comment: 4-5 beers monthly Hx Substance Use: No Preferred Language: Malawian Communication Ability: Effective Visual Impairment: Limited Hearing Ability: Use of Hearing Aid [place] Required: No Beliefs That Will Affect Care: Mormon marital status: Current Living Situation: Spouse Current Living Situation Comment: Demetrice and daughter current occupational status: disabled How many Children do You have: 4 Other Information That Helps Us Care for You: No Feels Safe at Home: Yes Safety Concerns: Feels Safe At This Time Childhood Exposure to Second-Hand Smoke: Yes Diet: regular caffeine: Yes during the past year weight has: remained stable Dental Care, Regularly: No Physical Activity Frequency: Does not Exercise Seatbelt Use: always Sunscreen Use: Yes Do you think of yourself as: straight/heterosexual Gender Identity: Male Assistive Devices: None Review of Systems Review of Systems: Complete Review of Systems is as stated above, negative, or noncontributory. Physical Exam Physical Exam: General: A&Ox3. NAD. HENT: Normocephalic. Atraumatic. Eyes: PER. Conjunctiva pink, sclera clear. Neck: Bilateral carotid bruits. No JVD. No HJR. Heart: RRR, paced, 64 bpm. Systolic murmur at the LLSB. No diastolic murmur. No rub. PMI is was palpated. Lungs: Clear to auscultation. Abdomen: +BS. Soft. Nontender. No masses or organomegaly. Extremities: No clubbing, cyanosis, or edema. Limited neurological examination is without focal deficits. Pulses: radial=2/4, posterior tibial=0/4. Results & Data Vital Signs (Past 12 Hours) Vital Signs Temp Pulse Pulse Resp BP BP Pulse Ox 04/20/23 12:36 04/20/23 12:36 80 04/20/23 12:36 36.4 C L 76 16 144/76 H 95 04/20/23 08:02 37 C 85 150/100 H 97 04/20/23 06:46 74 18 155/85 H 94 O2 Del Method 04/20/23 12:36 Room Air 04/20/23 12:36 04/20/23 12:36 Room Air 04/20/23 08:02 Room Air 04/20/23 06:46 Room Air Laboratory Results Cardiac Enzymes 04/19/23 04/20/23 Range/Units 20:10 03:32 AST 11 L 11 L (13-39) U/L Coagulation 04/19/23 Range/Units 20:10 PT 10.8 (9.0-12.0) Seconds APTT 29.7 (21.0-31.0) Seconds CBC 04/19/23 04/20/23 Range/Units 20:10 03:32 WBC 8.62 6.59 (4.8-10.8) K/ul RBC 3.95 L 3.91 L (4.70-6.10) M/uL Hgb 12.0 L 11.8 L (14.0-18.0) g/dl Hct 35.2 L 34.9 L (42.0-52.0) % Plt Count 298 277 (130-400) K/uL Neut # (Auto) 6.15 4.38 (1.40-6.50) K/uL Lymph # (Auto) 1.49 1.34 (1.20-3.40) K/uL Meagher # (Auto) 0.75 H 0.65 H (0.11-0.59) K/uL Eos # (Auto) 0.14 0.15 (0.00-0.50) K/uL Baso # (Auto) 0.06 0.04 (0.00-0.20) K/uL Comprehensive Metabolic Panel 04/19/23 04/20/23 Range/Units 20:10 03:32 Sodium 136 136 (136-145) mmol/L Potassium 4.4 4.3 (3.5-5.1) mmol/L Chloride 103 107 (98-107) mmol/L Carbon Dioxide 26 22 (21-32) mmol/L BUN 18 19 (6-23) mg/dl Creatinine 0.94 0.86 (0.6-1.4) mg/dl Glucose 209 H 143 H (70-99(Fasting)) mg/dl Calcium 9.4 9.2 (8.6-10.3) mg/dl AST 11 L 11 L (13-39) U/L ALT 12 9 (7-52) U/L Alkaline Phosphatase 60 57 (34-104) U/L Total Protein 7.3 6.7 (6.0-8.3) gm/dl Albumin 3.6 3.4 (3.4-5.0) gm/dl Intake and Output 04/20/23 04/20/23 04/20/23 06:59 14:59 22:59 Intake Total 545 / 545 475 / 475 Balance 545 / 545 475 / 475 Intake: IV 545 / 545 475 / 475 Magnesium Sulfate / D5w 1 gm In 100 / 100 100 ml @ 50 mls/hr IV Q2H [facility] Rx#:[id number] Piperacillin/Tazobactam 4.5 gm 100 / 100 In Dextrose 5% Mini-B 100 ml @ 25 mls/hr IV Q8H [facility] Rx#: [id number] Vancomycin HCl 1,250 mg In 275 / 275 Sodium Chloride 0.9% 250 ml @ 200 mls/hr IV Q12H [facility] Rx#: [id number] Vancomycin HCl 2,250 mg In 545 / 545 Sodium Chloride 0.9% 500 ml @ 200 mls/hr IV NOW ONE Rx#: [id number] Other: Other Intake Source NPO Weight 106.8 kg Weight Measurement Method Built in [facility] Patient Weight 04/21/23 06:59 Weight 106.8 kg
[2023-04-20] MEDS ORDERED: OPTIRAY 320 125ml IV ONE (15:48)
--- NOTE | 2023-04-20 17:05 | CT Scan Report ---
CT ANGIOGRAM OF THE LEFT LOWER EXTREMITY CLINICAL HISTORY: Gangrenous left toe. COMPARISON STUDY: Pelvic CT dated 08/18/2022. CT scan of the left lower extremity dated 04/07/2023. Lef t lower extremity arterial ultrasound dated 04/07/2023. A dose lowering technique was utilized adheri ng to the principles of ALARA. TECHNIQUE: Following the IV administration of 120 mL of Optiray 320, CT angiogram of the left lower e xtremity is performed from the bony pelvis to the foot. Images are reviewed in the axial, sagittal, a nd coronal planes. 3-D MIPS images are created and assessed. IV contrast was administered without com plication. A dose-lowering technique was utilized adhering to the pedicles of ALARA. CT DOSE: 1327.01 mGy.cm FINDINGS: Left lower extremity: Advanced atherosclerotic plaque and irregularity is seen throughout the arterie s of the left lower extremity. There is moderate focal stenosis of the left external iliac artery see n on axial image #34. There is complete peripheral branch thrombosis of the left internal iliac arter y seen on image #27. The left common femoral artery and the left profunda femoris artery are patent. There is complete thrombosis of the left superficial femoral artery, which originates approximately 1 .5 cm below the common femoral bifurcation. This is seen on axial image #134. Stents within the super ficial femoral artery are occluded. There is short segment of reconstitution of flow in the popliteal artery seen on image #411. The popliteal artery is occluded to the level of the bifurcation originat ing on image #442. There is complete thrombosis of the proximal anterior tibial artery (axial image 5 20). This is reconstituted on image #537, and the vessel is then patent to the foot. The dorsalis ped is artery is patent. There is thready flow throughout the peroneal artery, which is patent to the ank le joint. There is also thready flow within the posterior tibial artery. There are numerous foci of n ear-complete occlusive thrombosis throughout the vessel. The distal portions are largely occluded, wi th reconstitution above the ankle joint. Right lower extremity: Advanced atherosclerotic plaque and irregularity is noted. The right iliac art eries are patent, as is the right common femoral artery. There are profunda femoris arteries patent. There is complete thrombosis of the right superficial femoral artery with reconstitution at the level of the popliteal artery seen on axial image #422. A right lower extremity bypass graft is patent. Soft tissues: Soft tissue edema is present throughout the left foot. No soft tissue gas or organized fluid collection is seen. The Achilles tendon is thickened and calcified. There is generalized atroph y of the regional musculature. Skeletal structures: The skeletal structures are osteopenic. No lytic or blastic lesion is seen. Dege nerative change is noted in the left knee with evidence of chondrocalcinosis. There is no significant joint effusion. Degenerative changes are noted throughout the foot and ankle. No bony erosion or per iostitis is clearly identified in the foot. Pelvic viscera: The prostate gland is mildly enlarged and heterogeneous. The bladder wall is thickene d/trabeculated indicating chronic outlet obstruction. No free-fluid is seen in the pelvis. There is n o pelvic sidewall lymphadenopathy. Prominent inguinal nodes are likely reactive. There is a small fat -containing right groin hernia. Imaged bowel loops show no evidence of obstruction. IMPRESSION: 1. Complete thrombosis of the left superficial femoral artery, as well as near complete thrombosis of the left popliteal artery. 2. Stents within the left superficial femoral artery are occluded. 3. There is short-segment occlusion at the origin of the anterior tibial artery with distal reconstit ution. 4. There is thready flow within the left posterior tibial artery, which is largely occluded distally. This reconstitutes above the foot. 5. Complete thrombosis of the right superficial femoral artery. 6. Imaged portions of the right lower extremity arterial bypass are patent. 7. Additional findings as above. ACT 112: Negative or not required by law. Dictated: 04/20/2023 4:02 PM Transcribed: 04/20/2023 4:31 PM Donnell [id number] [email or web address] Electronically signed by: Andrew Alonzo M.D. 04/20/2023 5:03 PM
--- NOTE | 2023-04-20 17:40 | Hospitalist Progress Note ---
Date of Service April 20, 2023 Assessment & Plan (1) Gangrene of toe of left foot: Plan: remains on IV zosyn + IV vancomycin. culture growing GNR. recently hospitalized at [facility] for same infection - d/c on augmentin; culture results from that admission are not available. podiatry - Dr Cruz; vascular surgery - Dr Layne -- consulted for management of this issue. has severe PAD of b/l LEs - defer management and Rx to Dr Layne. Dr Cruz ready to perform amputation - timing of such uncertain. morphine prn added for pain control. (2) HFrEF (heart failure with reduced ejection fraction): Plan: EF 25-30% by report. etiology- ischemic cardiomyopathy. typically on meto succ 25mg daily -- was placed on hold at time of admission - will resume. lasix on hold from admission - likely to need such starting tomorrow pending his volume status, BMP etc. also typically on aldactone 12.5mg daily - this, too, is on hold. uncertain why he is not on Entresto therapy. appreciate Cardiology consultation and recs. (3) Presence of combination internal cardiac defibrillator (ICD) and pacemaker: Plan: by report device functioning well (4) Inflammatory arthritis: Plan: gout + other condition?? last rheumatology office note is from [address] Olimpia Campbell .... [facility]? remains on allopurinol prophylaxis typically is on colchicine 0.6mg TID + evolocumab per med list not on chronic steroid therapy from what I can see (5) Peripheral arterial disease: Plan: SEVERE CTA LEs today with b/l femoral artery stenoses defer Rx to Dr Layne timing of re-vascularization uncertain should remain on statin, aspirin, etc (6) S/P coronary artery stent placement: Plan: 4 stents prior to his 4-vessel CABG (latter - [facility]) no recent ischemic symptoms typically on aspirin, statin, beta jennifer, Ranexa, imdur (7) Hypertension: Plan: cont home meds resume meto succ 25mg daily (8) Coronary artery disease: Plan: as above (9) Ischemic cardiomyopathy: Plan: EF 25-30% compensated on exam today but caution with IV fludis (10) Diabetes mellitus: Plan: a1c 7.6% cont basal-bolus insulin (11) Hypercholesterolemia: Plan: resume statin (12) Tobacco abuse: Plan: offered nicoderm patch but he declined for now (13) S/P CABG x 4: Plan: noted [facility] (14) Hypomagnesemia: Plan: replace 2 grams mag sulfate IV repeat mag level am (15) Right leg DVT: Plan: venous duplex study at [facility] in March showed "age indeterminate" DVT of the right femoral vein as well as a superficial thrombosis in the GSV Eliquis initiated during that admission? At this time - in light of needing vascular and orthopedic interventions - Eliquis is on hold If surgery is delayed would consider heparin bridge Admission and Anticipated Discharge Date Admission Date: April 19, 2023 Subjective patient lying flat in bed comfortably w/o dyspnea no chest pain reports some occasional night-time breathing difficulties but has not had such today just returned from CTA of the lower extremities - ordered by vascular surgery he reports pain in L great toe - ongoing denies any chest pain at rest Review of Systems Review of Systems: gen - no fevers or chills cv - ?PND; no chest pain; no recent ICD device discharges GI - no abd pain/nausea/emesis quit tobacco just prior to admission; was using chantix recently and had cut back to <1/2 ppd of tobacco Physical Exam Physical Exam: gen - lying in bed comfortably, NAD, pleasant neck - no JVD mouth - MMM heart - RRR, s1 s2, 1-2/6 systolic murmur LLSB lungs - CTA b/l; no rales abd - soft NT ND BS+ ext - left foot cool touch with delayed cap refill especially on toes; L great toe dusky in appearance; lateral aspect of L great toe with large ulceration; foul odor present; purulent drainage noted vascular - pulses b/l feet 1+ at best; no edema either leg psych - a/o x 3 Results & Data Results & Data Vital Signs (Past 12 Hours) Vital Signs Temp Pulse Pulse Resp BP BP Pulse Ox 04/20/23 15:00 64 04/20/23 12:36 04/20/23 12:36 80 04/20/23 12:36 36.4 C L 76 16 144/76 H 95 04/20/23 08:02 37 C 85 150/100 H 97 04/20/23 06:46 74 18 155/85 H 94 O2 Del Method 04/20/23 15:00 04/20/23 12:36 Room Air 04/20/23 12:36 04/20/23 12:36 Room Air 04/20/23 08:02 Room Air 04/20/23 06:46 Room Air Laboratory Results Laboratory Results - last 24 hr 04/20/23 04/20/23 04/20/23 03:32 08:55 11:50 WBC 6.59 RBC 3.91 L Hgb 11.8 L Hct 34.9 L MCV 89.3 MCH 30.2 MCHC 33.8 RDW Std Deviation 44.3 RDW Coeff of Mayuri 13.7 Plt Count 277 MPV 9.3 L Immature Gran % (Auto) 0.5 Neut % (Auto) 66.4 Lymph % (Auto) 20.3 Bennett % (Auto) 9.9 Eos % (Auto) 2.3 Baso % (Auto) 0.6 Neut # (Auto) 4.38 Lymph # (Auto) 1.34 Bennett # (Auto) 0.65 H Eos # (Auto) 0.15 Baso # (Auto) 0.04 Immature Gran # (Auto) 0.03 Sodium 136 Potassium 4.3 Chloride 107 Carbon Dioxide 22 Anion Gap 7 BUN 19 Creatinine 0.86 Est Cr Clr Drug Dosing 102.0 Est GFR ( Amer) 104.0 Est GFR (Non-Af Amer) 89.7 BUN/Creatinine Ratio 22.1 H Glucose 143 H POC Glucose 161 H 145 H Estimat Average Glucose 171 Hemoglobin A1c 7.6 H Calcium 9.2 Magnesium 1.5 L Total Bilirubin 0.6 AST 11 L ALT 9 Alkaline Phosphatase 57 Total Protein 6.7 Albumin 3.4 Globulin 3.3 Albumin/Globulin Ratio 1.0 04/20/23 04/20/23 04/20/23 17:10 20:23 23:49 WBC RBC Hgb Hct MCV MCH MCHC RDW Std Deviation RDW Coeff of Mayuri Plt Count MPV Immature Gran % (Auto) Neut % (Auto) Lymph % (Auto) Bennett % (Auto) Eos % (Auto) Baso % (Auto) Neut # (Auto) Lymph # (Auto) Bennett # (Auto) Eos # (Auto) Baso # (Auto) Immature Gran # (Auto) Sodium Potassium Chloride Carbon Dioxide Anion Gap BUN Creatinine Est Cr Clr Drug Dosing Est GFR ( Amer) Est GFR (Non-Af Amer) BUN/Creatinine Ratio Glucose POC Glucose 116 H 110 H 102 H Estimat Average Glucose Hemoglobin A1c Calcium Magnesium Total Bilirubin AST ALT Alkaline Phosphatase Total Protein Albumin Globulin Albumin/Globulin Ratio Diagnostic Findings blood cx's neg to date wound culture L great toe - GNR PG Care Time/CCT Total # of Minutes Spent Total Time Spent with Patient: Total time spent is greater than 50% in coordination of care (as documented) at patient's floor/unit and/or counseling patient: Coding Level of Care Code 94383 SUB INP/OBS CARE 2/35MIN Diagnoses Gangrene of toe of left foot I96 HFrEF (heart failure with reduced ejection fraction) I50.20 Presence of combination internal cardiac defibrillator (ICD) and pacemaker Z95.810 Inflammatory arthritis M19.90 Peripheral arterial disease I73.9 S/P coronary artery stent placement Z95.5 Hypertension I10 Coronary artery disease I25.10 Ischemic cardiomyopathy I25.5 Diabetes mellitus E11.9 Hypercholesterolemia E78.00 Tobacco abuse Z72.0 S/P CABG x 4 Z95.1 Hypomagnesemia E83.42 Right leg DVT I82.401
--- NOTE | 2023-04-20 17:46 | Podiatry Consultation ---
Date of Consultation April 20, 2023 Assessment & Plan (1) Diabetic infection of left foot: (2) Infection of great toe: (3) Peripheral arterial disease: (4) Gangrene of toe of left foot: Plan Patient was examined and evaluated. We discussed at length etiology and treatment of his left great toe ulceration. It is currently stable and he is clinically doing well without any systemic signs of infection. His vitals are stable and his labs have been mostly within normal limits. Because of this, ideally, he would have a revascularization performed before toe amputation to ensure his best odds of healing the amputation. It could be feasible to do the amputation first with a revascularization shortly after if there is concern of infection of the revascularization sites. Without any revascularization, he is unlikely to heal any toe amputation and would likely need a more proximal amputation. For this, I will be pertinent to base decisions on what Dr. Layne and his group are considering as options. We will continue to follow-up with him this week and will likely schedule surgical amputation of the toe later in the week, especially if it worsens more acutely. Patient is anxious to have his amputation as soon as possible, as he seems to have come to terms with his digital amputation recently. Thank you for the consult, we look forward to providing him with excellent care as long as he remains here at [facility]. History of Present Illness Reason for Consultation: Left hallux necrosis Attending Physician: Benito Garsia MD History of Present Illness This patient is a patient of ours, who we have seen outpatient for a left hallux ulceration and nail care in the past. He has seen other providers as well for wound care of this great toe and has had hospitalizations recently for both this toe and cellulitis of the leg. He has been attempting home treatment with collagenase ointment, as he does have underlying severe peripheral arterial disease and sharp debridement has not been a great option because of that. He has been performing this wound care daily though did recently noticed increasing signs of infection to the left leg and presented to the hospital for these concerns. He denies any severe systemic signs of infection and has felt decent since admission to the hospital. He is waiting, at this point, for input from vascular surgery though has been put on IV antibiotics since admission. He denies any other recent medical history change, as well. Allergies Allergy/AdvReac Type Severity Reaction Status Date / Time No Known Allergies Allergy Verified 04/20/23 08:31 Home Medications Medication Instructions Recorded Confirmed Type aspirin 81 mg tablet,delayed 81 mg PO DAILY 04/20/22 04/20/23 History release (Adult Low Dose Aspirin) ezetimibe 10 mg tablet 10 mg PO DAILY #90 tabs 07/31/22 04/20/23 Rx isosorbide mononitrate 120 mg 120 mg PO DAILY #90 tabs 07/31/22 04/20/23 Rx tablet,extended release 24 hr ranolazine 1,000 mg 1,000 mg PO BID #180 tabs 07/31/22 04/20/23 Rx tablet,extended release,12 hr colchicine 0.6 mg tablet 0.6 mg PO TID #270 tabs 08/31/22 04/20/23 Rx flash glucose sensor (FreeStyle #2 ea 10/28/22 02/24/23 Rx Sandy 2 Sensor kit) pen needle, diabetic 31 gauge x #100 ea 11/08/22 02/24/23 Rx 5/16" (BD Ultra-Fine Short Pen Needle) atorvastatin 80 mg tablet 80 mg PO .evening #90 tabs 12/01/22 04/20/23 Rx nitroglycerin 0.4 mg sublingual 0.4 mg sublingual Q5M PRN Pain #14 12/01/22 04/20/23 Rx tablet tabs trazodone 100 mg tablet 50 mg (1/2 x 100 mg) PO HS #45 tabs 12/09/22 04/20/23 Rx varenicline 1 mg tablet (Chantix) 1 mg PO BID #120 tabs 02/03/23 04/20/23 Rx allopurinol 300 mg tablet 600 mg (2 x 300 mg) PO .COMPLEX 02/26/23 04/20/23 Rx #60 tabs allopurinol 100 mg tablet 100 mg PO DAILY #90 tabs 03/22/23 04/20/23 Rx Lantus Solostar U-100 Insulin 100 44 unit (0.44 mL) subcut HS #15 mL 04/03/23 04/20/23 Rx unit/mL (3 mL) subcutaneous pen (insulin glargine) apixaban 5 mg tablet (Eliquis) 5 mg PO BID 04/12/23 04/20/23 History evolocumab 140 mg/mL subcutaneous 140 mg subcut .Every 2 weeks #2 mL 04/12/23 04/20/23 Rx pen injector (Loyda Brown) furosemide 20 mg tablet 40 mg PO DAILY 04/12/23 04/20/23 History metoprolol succinate 25 mg 25 mg PO HS 04/20/23 04/20/23 History tablet,extended release 24 hr spironolactone 25 mg tablet 12.5 mg PO DAILY 04/20/23 04/20/23 History Patient History Medical History Prostatitis Left wrist pain Inflammatory arthritis Pacemaker 2021June 09 History of congestive heart failure Surgical History No pertinent past surgical history Family History Father , age 72 Diabetes Colonic polyp Hypertension Kidney disease Heart disease Dyslipidemia Coronary heart disease, Onset Age: 63 CABG Mother Lung disease Lung cancer, Onset Age: 70 small cell 71 Denies family history of Ovarian cancer Prostate cancer Deep vein thrombosis Alzheimer disease Dementia Depression Myocardial infarction Breast cancer Colorectal cancer Pulmonary embolism Stroke Asthma Social History Smoking Status: Former smoker Tobacco Type: Cigarettes Age Started Using Tobacco: 17; Cigarettes Per Day: 5/day; Second Hand Exposure: Yes; Do You Dip or Chew Tobacco: No; Hx Alcohol Use: Yes Alcohol type: beer Alcohol Intake Frequency: Monthly or Less Alcohol Intake Frequency Comment: 4-5 beers monthly Hx Substance Use: No Preferred Language: Sinhala Communication Ability: Effective Visual Impairment: Limited Hearing Ability: Use of Hearing Aid Box Press Operator Required: No Beliefs That Will Affect Care: Cheondoism marital status: Current Living Situation: Spouse Current Living Situation Comment: Demetrice and daughter current occupational status: disabled How many Children do You have: 4 Feels Safe at Home: Yes Childhood Exposure to Second-Hand Smoke: Yes Diet: regular caffeine: Yes during the past year weight has: remained stable Dental Care, Regularly: No Physical Activity Frequency: Does not Exercise Seatbelt Use: always Sunscreen Use: Yes Do you think of yourself as: straight/heterosexual Gender Identity: Male Assistive Devices: None Review of Systems Review of Systems: All systems reviewed & are unremarkable except as noted in HPI & below Constitutional: + fever; no chills and no fatigue Eyes: no problem reported Ear, Nose, Mouth, Throat: no problem reported Respiratory: no problem reported Cardiovascular: no problem reported Gastrointestinal: no problem reported Genitourinary: no urinary urgency Musculoskeletal: no problem reported Integumentary: + skin ulcer and + wounds Neurologic: + loss of sensation; no generalized weak ness Psychiatric: no problem reported Endocrine: no problem reported Hematologic / Lymphatic: no problem reported Allergy / Immunological: no problem reported Physical Exam Physical Exam: Left lower extremity exam: There is a 2 x 3 cm area of dry necrosis to the lateral aspect of the hallux. This is unchanged, locally, from prior exam outpatient. There is increasing local erythema and ascending cellulitis to the foot and leg. There is a proximal marking of the cellulitis, which has not been passed by The infection. Pedal pulses do remain nonpalpable and the limb is cool to cold proximal to distal. Advanced trophic changes are noted to the bilateral lower extremity, worse on the left. Constitutional: + ill appearing; no acute distress Eyes: PERRL, conjunctivae normal, anicteric sclerae ENMT: external ear and nose normal, oropharynx normal Neck: trachea midline, no thyromegaly Respiratory: normal respiratory effort; no respiratory distress Cardiovascular: Rate/Rhythm: regular rate and regular rhythm Vessels: + abnormal peripheral pulses, + posterior tibial pulses abnormal and + dorsalis pedis pulses abnormal Chest (Breasts): Chest: normal inspection of chest Gastrointestinal (Abdomen): Inspection/Auscultation: abdomen normal to inspection Percussion/Palpation: + abdomen tender Musculoskeletal: Head/Neck/Chest: normocephalic and head atraumatic Extremities: + limited ROM of extremities and strength 5/5 throughout Gait: + antalgic gait Ankle: + skin erythema Skin: + ulcer and + wound Neurologic: PERRL, EOMI, accommodation nl, no face palsy, no dysarthria + abnormal touch/pain/proprioception Psychiatric: A+Ox3, euthymic affect Results & Data Vital Signs (Past 12 Hours) Vital Signs Temp Pulse Pulse Resp BP BP Pulse Ox 04/20/23 15:00 64 04/20/23 12:36 04/20/23 12:36 80 04/20/23 12:36 36.4 C L 76 16 144/76 H 95 04/20/23 08:02 37 C 85 150/100 H 97 04/20/23 06:46 74 18 155/85 H 94 O2 Del Method 04/20/23 15:00 04/20/23 12:36 Room Air 04/20/23 12:36 04/20/23 12:36 Room Air 04/20/23 08:02 Room Air 04/20/23 06:46 Room Air
[2023-04-20] MEDS ORDERED: Nursing to Pharmacy Communication SCH (20:15)
[2023-04-20] MEDS: traZODone HCL 50 MG TAB PO SCH (21:08)
[2023-04-20] MEDS: LANTUS PER UNIT CHARGE SQ SCH (21:08)
[2023-04-21] MEDS: INSULIN ASPART PER UNIT CHARGE SC SCH ×5 (00:45→20:31)
[2023-04-21] MEDS ORDERED: FUROSEMIDE INJ 20 MG/2 ML VIAL IV ONE (02:14)
[2023-04-21] MEDS: MoRPHine SULFATE 2 MG/ML CARP IV PRN (06:17)
[2023-04-21] MEDS: PIPERACILLIN/TAZOBACTAM 4.5 GM in DEXTROSE 5% MINI-B 100 ML IV SCH (06:21)
[2023-04-21] MEDS: EZETIMIBE 10 MG TAB PO SCH (08:00)
[2023-04-21] MEDS: ISOSORBIDE MONO EXTENDED REL 60 MG TABCR PO SCH (08:00)
[2023-04-21] MEDS: METOPROLOL SUCC 25MG EXT REL TAB PO SCH (08:00)
[2023-04-21] MEDS: NSS + 20MEQ KCL 20 MEQ/1,000 ML BAG IV SCH (09:16)
[2023-04-21] MEDS: HYDROmorphone INJ 0.5 MG/0.5 ML SYR IV PRN ×4 (09:28→22:13)
[2023-04-21] MEDS: MAGNESIUM SULFATE / D5W 1 GM/100 ML BAG IV SCH ×2 (09:28→11:26)
[2023-04-21] MEDS: MEROPENEM 500 MG in SYRINGE 0 ML IV SCH ×3 (10:25→21:28)
[2023-04-21 11:09] LABS: Calcium 9.4 mg/dl (8.6-10.3); Potassium 4.2 mmol/L (3.5-5.1)
[2023-04-21 11:14] LABS: BUN Creatinine Ratio 15.3 (10-20); Creatinine Clr Calc Pharmacy 89.1 ml/min; Est GFR (African American) 92.1 ml/min; Est GFR (Non-African American) 79.5 ml/min
[2023-04-21] MEDS: VANCOMYCIN HCL 1,250 MG in SODIUM CHLORIDE 0.9% 250 ML IV SCH ×2 (11:25→21:28)
--- NOTE | 2023-04-21 11:59 | Cardiology Progress Note ---
Date of Service April 21, 2023 Assessment & Plan (1) Diabetic infection of left foot: (2) Preop cardiovascular exam: (3) ASCVD (arteriosclerotic cardiovascular disease): (4) Ischemic cardiomyopathy: (5) Presence of combination internal cardiac defibrillator (ICD) and pacemaker: (6) HFrEF (heart failure with reduced ejection fraction): (7) Tobacco abuse: Plan 68 year old male referred for preoperative cardiology consultation prior to left great toe amputation and lower extremity bypass surgery by Dr. Layne. Patient with history of severe ischemic cardiomyopathy, LVEF 25%, status post remote coronary artery bypass grafting and biventricular pacemaker defibrillator implantation using a [employer]. Db/Guevara device. Chronic tobacco use noted along with recent hospitalization at [facility]. Patient appears compensated from a congestive heart failure standpoint. He is maintaining sinus rhythm by history and review of telemetry, chronically unable to achieve 4 Mets without experiencing dyspnea. Options of management discussed. Estimated risk of adverse outcome with this non-cardiac surgery is high however, in my opinion, further cardiac evaluation at this time would not likely reduce his risk of perioperative complication(s) and the procedure is necessary. Recommend uninterrupted continuation of beta-jennifer therapy (metoprolol succinate 25 mg/day), isosorbide, aspirin 81 mg/day, and high intensity statin therapy. Hold furosemide the AM of procedure, resuming postoperatively as hemodynamics permit. Standard pacemaker defibrillator precautions should be taken. Consider resumption of anticoagulation as soon as determined to be safe postoperatively noting the right lower extremity DVT observed at [facility] last month. Recommend reinstitution of guideline directed medical therapy (Entresto, spironolactone, Empagliflozin (Jardiance) as able postoperatively. Tobacco cessation mandated. 04/21/2023 No cardiac contraindications to planned surgery Recent hospitalization with transient renal insufficiency with diuresis, IV contrast. Renal function now normal and remaining Entresto and spironolactone, Jardiance on hold Will likely as above reinstitute once hemodynamically stable postoperatively Admission and Anticipated Discharge Date Admission Date: April 19, 2023 Subjective Patient was seen and examined, chart, medications, telemetry reviewed No chest pain or worsening shortness of breath foot pain being controlled. Hemodynamically stable Awaiting plans for surgery, toe amputation versus additional surgical revascularization Physical Exam Constitutional: well developed and well nourished; no acute distress Eyes: PERRL, conjunctivae normal, anicteric sclerae ENMT: external ear and nose normal, oropharynx normal Neck: trachea midline, no thyromegaly Respiratory: normal respiratory effort; no respiratory distress Cardiovascular: Rate/Rhythm: regular rhythm (Paced) Chest (Breasts): Chest: + pacemaker (Pacemaker/defibrillator) Gastrointestinal (Abdomen): normal bowel sounds, soft, nontender, no hepatosplenomegaly Results & Data Vital Signs (Past 12 Hours) Vital Signs Temp Pulse Pulse Pulse Resp BP BP 04/21/23 11:46 36.7 C 74 16 134/72 04/21/23 10:09 04/21/23 10:08 80 04/21/23 07:55 36.9 C 72 16 132/68 04/21/23 07:37 36.8 C 78 18 134/70 04/21/23 03:35 36.6 C 77 20 147/77 H 04/21/23 01:41 36.6 C 65 22 131/91 04/21/23 00:05 36.8 C 70 18 127/70 Pulse Ox O2 Del Method 04/21/23 11:46 94 Room Air 04/21/23 10:09 Room Air 04/21/23 10:08 04/21/23 07:55 96 Room Air 04/21/23 07:37 96 Room Air 04/21/23 03:35 94 Room Air 04/21/23 01:41 93 Room Air 04/21/23 00:05 93 Room Air Laboratory Results Laboratory Results - last 24 hr 04/20/23 04/20/23 04/20/23 11:50 17:10 20:23 Sodium Potassium Chloride Carbon Dioxide Anion Gap BUN Creatinine Est Cr Clr Drug Dosing Est GFR ( Amer) Est GFR (Non-Af Amer) BUN/Creatinine Ratio Glucose POC Glucose 145 H 116 H 110 H Calcium Magnesium 04/20/23 04/21/23 04/21/23 23:49 06:10 07:09 Sodium Potassium Chloride Carbon Dioxide Anion Gap BUN Creatinine Est Cr Clr Drug Dosing Est GFR ( Amer) Est GFR (Non-Af Amer) BUN/Creatinine Ratio Glucose POC Glucose 102 H 111 H Calcium Magnesium 1.5 L 04/21/23 08:23 Sodium 136 Potassium 4.2 Chloride 104 Carbon Dioxide 20 L Anion Gap 12 H BUN 15 Creatinine 0.98 Est Cr Clr Drug Dosing 89.1 Est GFR ( Amer) 92.1 Est GFR (Non-Af Amer) 79.5 BUN/Creatinine Ratio 15.3 Glucose 100 H POC Glucose Calcium 9.4 Magnesium ECG Additional Comments: EKG 04/21/2023 Atrial sensed with biventricular pacing occasional PVCs
--- NOTE | 2023-04-21 12:02 | Cardiology Progress Note ---
Date of Service April 21, 2023 Assessment & Plan (1) Diabetic infection of left foot: (2) Preop cardiovascular exam: (3) ASCVD (arteriosclerotic cardiovascular disease): (4) Ischemic cardiomyopathy: (5) Presence of combination internal cardiac defibrillator (ICD) and pacemaker: (6) HFrEF (heart failure with reduced ejection fraction): (7) Tobacco abuse: Plan 68 year old male referred for preoperative cardiology consultation prior to left great toe amputation and lower extremity bypass surgery by Dr. Layne. Patient with history of severe ischemic cardiomyopathy, LVEF 25%, status post remote coronary artery bypass grafting and biventricular pacemaker defibrillator implantation using a [employer] Db/Guevara device. Chronic tobacco use noted along with recent hospitalization at [facility]. Patient appears compensated from a congestive heart failure standpoint. He is maintaining sinus rhythm by history and review of telemetry, chronically unable to achieve 4 Mets without experiencing dyspnea. Options of management discussed. Estimated risk of adverse outcome with this non-cardiac surgery is high however, in my opinion, further cardiac evaluation at this time would not likely reduce his risk of perioperative complication(s) and the procedure is necessary. Recommend uninterrupted continuation of beta-jennifer therapy (metoprolol succinate 25 mg/day), isosorbide, aspirin 81 mg/day, and high intensity statin therapy perioperatively. Hold furosemide the AM of procedure, resuming postoperatively as hemodynamics permit. Standard pacemaker defibrillator precautions Resume anticoagulation postoperatively, RE: right lower extremity DVT observed at [place] last month, when determined to be safe. Reinstitute guideline directed medical therapy (Entresto, spironolactone, Empagliflozin (Jardiance)) as hemodynamics permit. Tobacco cessation urged. Admission and Anticipated Discharge Date Admission Date: April 19, 2023 Subjective Patient seen and examined. Chart, medications, and telemetry reviewed. Chronic stable upper chest tightness that has been present since the medial sternotomy. No new or worsening chest pain. Breathing has been okay, perhaps a little bit short of breath overnight, low without overt orthopnea or PND. No palpitations. Personal review of the patient's continuous awake overnight monitor reveals a paced rhythm with occasional ectopy, heart rates predominantly in the 60s and 80s. No headaches, dizziness, near syncope, fevers, or chills. Anxiously awaiting interventional plan by vascular surgery and podiatry Review of Systems Review of Systems: Complete Review of Systems is as stated above, negative, or noncontributory. Physical Exam Physical Exam: General: A&Ox3. NAD. HENT: Normocephalic. Atraumatic. Eyes: PER. Conjunctiva pink, sclera clear. Neck: Bilateral carotid bruits. No JVD. No HJR. Heart: RRR, paced, 70 bpm. Systolic murmur at the LLSB. No diastolic murmur. No rub. PMI is was palpated. Lungs: Clear to auscultation. Abdomen: +BS. Soft. Nontender. No masses or organomegaly. Extremities: No clubbing, cyanosis, or significant edema. There is a ulcer on the left lateral aspect of the left great toe, mildly cyanotic/dusky, with foul odor present Pulses: radial=2/4, posterior tibial=0/4. Limited neurological examination is without focal deficits. Results & Data Vital Signs (Past 12 Hours) Vital Signs Temp Pulse Pulse Pulse Resp BP BP 04/21/23 11:46 36.7 C 74 16 134/72 04/21/23 10:09 04/21/23 10:08 80 04/21/23 07:55 36.9 C 72 16 132/68 04/21/23 07:37 36.8 C 78 18 134/70 04/21/23 03:35 36.6 C 77 20 147/77 H 04/21/23 01:41 36.6 C 65 22 131/91 04/21/23 00:05 36.8 C 70 18 127/70 Pulse Ox O2 Del Method 04/21/23 11:46 94 Room Air 04/21/23 10:09 Room Air 04/21/23 10:08 04/21/23 07:55 96 Room Air 04/21/23 07:37 96 Room Air 04/21/23 03:35 94 Room Air 04/21/23 01:41 93 Room Air 04/21/23 00:05 93 Room Air Laboratory Results Comprehensive Metabolic Panel 04/21/23 Range/Units 08:23 Sodium 136 (136-145) mmol/L Potassium 4.2 (3.5-5.1) mmol/L Chloride 104 (98-107) mmol/L Carbon Dioxide 20 L (21-32) mmol/L BUN 15 (6-23) mg/dl Creatinine 0.98 (0.6-1.4) mg/dl Glucose 100 H (70-99(Fasting)) mg/dl Calcium 9.4 (8.6-10.3) mg/dl Intake and Output 04/20/23 04/21/23 04/21/23 22:59 06:59 14:59 Intake Total 1473.667 / 2920.667 972 / 2920.667 171.250 / 171.250 Output Total 1100 / 3300 2200 / 3300 260 / 260 Balance 373.667 / -379.333 -1228 / -379.333 -88.750 / -88.750 Intake: IV 1473.667 / 2920.667 972 / 2920.667 171.250 / 171.250 Magnesium Sulfate / D5w 1 gm In 100 / 200 98.333 / 98.333 100 ml @ 50 mls/hr IV Q2H JAKOB Rx#:[id number] Nss + 20Meq KCl 20 meq In 1,000 998.667 / 1870.667 872 / 1870.667 0 / 0 ml @ 80 mls/hr IV .[id number] JAKOB Rx#:[id number] Piperacillin/Tazobactam 4.5 gm 100 / 300 100 / 300 72.917 / 72.917 In Dextrose 5% Mini-B 100 ml @ 25 mls/hr IV Q8H JAKOB Rx#: [id number] Vancomycin HCl 1,250 mg In 275 / 550 Sodium Chloride 0.9% 250 ml @ 200 mls/hr IV Q12H JAKOB Rx#: [id number] Output: Urine 1100 / 3300 2200 / 3300 260 / 260 Other: Other Intake Source NPO Weight 105.7 kg Weight Measurement Method Standing Scale
--- NOTE | 2023-04-21 16:06 | Electrocardiogram Report ---
Test Reason : Blood Pressure : / mmHG Vent. Rate : 073 BPM Atrial Rate : 075 BPM P-R Int : 000 ms QRS Dur : 164 ms QT Int : 468 ms P-R-T Axes : 000 101 122 degrees QTc Int : 515 ms Ventricular-paced rhythm with occasional Premature ventricular complexes Biventricular pacemaker detected Abnormal ECG No previous ECGs available Confirmed by Dennis Damon ([id number]) on 04/21/2023 4:06:30 PM Referred By: REFERRED SELF Confirmed By:Dennis Damon
[2023-04-21] MEDS: LANTUS PER UNIT CHARGE SQ SCH (20:31)
[2023-04-21] MEDS: traZODone HCL 50 MG TAB PO SCH (20:33)
[2023-04-21] MEDS ORDERED: ATORVASTATIN 40 MG TAB PO SCH (21:00)
--- NOTE | 2023-04-21 21:00 | Hospitalist Progress Note ---
Date of Service April 21, 2023 Assessment & Plan (1) Gangrene of toe of left foot: Plan: remains on IV zosyn + IV vancomycin. culture with pseudomonas - intermediate sensitivity to zosyn. also with staph. d/c zosyn. change to meropenem. cont vanco. recently hospitalized at [facility] for same infection - was d/c home on augmentin; culture results from that admission are not available. podiatry - Dr Cruz; vascular surgery - Dr Layne -- consulted for management of this issue. has severe PAD of b/l LEs on CTA of LEs. I spoke with Dr Layne - he recommends BKA on left rather than left great toe amputation by itself. He is concerned that even with intervention of his severe b/l LE PAD with bypass that he will not have enough blood flow to the left foot for optimal healing. He also recommends transfer to tertiary care for these procedures. patient chose [facility]. if he needs BKA he will do such. will follow cultures. change morphine to dilaudid for pain control. plan to contact [facility] in am. (2) HFrEF (heart failure with reduced ejection fraction): Plan: EF 25-30% by report. etiology- ischemic cardiomyopathy. cont meto succ 25mg daily. resume PO lasix and PO aldactone in am tomorrow if BMP is stable. uncertain why he is not on Entresto therapy. appreciate Cardiology consultation and recs. (3) Presence of combination internal cardiac defibrillator (ICD) and pacemaker: Plan: by report device functioning well (4) Inflammatory arthritis: Plan: gout + other condition?? last rheumatology office note is from [address] Olimpia Campbell .... [facility]? remains on allopurinol prophylaxis typically is on colchicine 0.6mg TID + evolocumab per med list not on chronic steroid therapy from what I can see hold colchicine in light of upcoming surgery (5) Peripheral arterial disease: Plan: SEVERE CTA LEs with b/l femoral artery stenoses should remain on statin, aspirin, etc bypass at tertiary care? appreciate vascular surgery assistance (6) S/P coronary artery stent placement: Plan: 4 stents prior to his 4-vessel CABG (latter - [facility]) no recent ischemic symptoms typically on aspirin, statin, beta jennifer, Ranexa, imdur resume Ranexa resume aspirin (7) Hypertension: Plan: cont home meds (8) Coronary artery disease: Plan: as above (9) Ischemic cardiomyopathy: Plan: EF 25-30% stop IVF did receive IV lasix last pm but he has not examined volume overloaded this admission if BMP stable in am resume usual doses of PO lasix with aldactone (10) Diabetes mellitus: Plan: a1c 7.6% cont basal-bolus insulin (11) Hypercholesterolemia: Plan: statin (12) Tobacco abuse: Plan: offered nicoderm patch but he declined for now (13) S/P CABG x 4: Plan: noted [facility] (14) Hypomagnesemia: Plan: 2nd diuretics replace again with 2 grams mag sulfate IV repeat mag level am (15) Right leg DVT: Plan: venous duplex study at [facility] in March showed "age indeterminate" DVT of the right femoral vein as well as a superficial thrombosis in the GSV Eliquis initiated during that admission? At this time - in light of needing vascular and orthopedic interventions - Eliquis is on hold If surgery is delayed would bridge with heparin Plan will contact [facility] tomorrow Admission and Anticipated Discharge Date Admission Date: April 19, 2023 Subjective overnight had dyspnea once again and was given IV lasix in the middle of the night he reports a tightness sensation in the upper chest - "like there is mucous there" that he cannot get up tightness does not feel like prior heart pains despite these symptoms he is not orthopneic no prior h/o COPD he met with Dr Layne today and Dr Layne advised left sided BKA rather than L great toe amputation he will also need considerable vascular intervention of his severe PAD he was initially very distraught by the conversation as the day went on he and his decided to proceed with BKA Dr Layne is advising transfer to tertiary care center for this procedure - patient prefers [facility] Review of Systems Review of Systems: gen - no fevers cv - no substernal chest pain GI - no nausea/emesis/pain pulm - no HART e Physical Exam Physical Exam: gen - lying in bed flat comfortably, NAD, pleasant neck - no JVD mouth - MMM heart - RRR, s1 s2, 1-2/6 systolic murmur LLSB lungs - left sided course BS with focal wheeze - this cleared when he coughed; otherwise no rales; no increased work of breathing abd - soft NT ND BS+ ext - left foot cool touch with delayed cap refill; L great toe dusky/gangrenous in appearance; lateral aspect of L great toe with large ulceration; foul odor remains vascular - pulses b/l feet <1+ at best; no edema either leg psych - a/o x 3 Results & Data Results & Data Vital Signs (Past 12 Hours) Vital Signs Temp Pulse Pulse Pulse Resp BP Pulse Ox 04/21/23 19:23 36.8 C 87 18 123/58 L 93 04/21/23 15:50 96 H 04/21/23 15:43 36.8 C 88 17 112/57 L 95 04/21/23 11:46 36.7 C 74 16 134/72 94 04/21/23 10:09 04/21/23 10:08 80 O2 Del Method 04/21/23 19:23 Room Air 04/21/23 15:50 04/21/23 15:43 Room Air 04/21/23 11:46 Room Air 04/21/23 10:09 Room Air 04/21/23 10:08 Laboratory Results Laboratory Results - last 24 hr 04/20/23 04/21/23 04/21/23 23:49 06:10 07:09 Sodium Potassium Chloride Carbon Dioxide Anion Gap BUN Creatinine Est Cr Clr Drug Dosing Est GFR ( Amer) Est GFR (Non-Af Amer) BUN/Creatinine Ratio Glucose POC Glucose 102 H 111 H Calcium Magnesium 1.5 L 04/21/23 04/21/23 04/21/23 08:23 12:00 17:04 Sodium 136 Potassium 4.2 Chloride 104 Carbon Dioxide 20 L Anion Gap 12 H BUN 15 Creatinine 0.98 Est Cr Clr Drug Dosing 89.1 Est GFR ( Amer) 92.1 Est GFR (Non-Af Amer) 79.5 BUN/Creatinine Ratio 15.3 Glucose 100 H POC Glucose 115 H 174 H Calcium 9.4 Magnesium 04/21/23 20:23 Sodium Potassium Chloride Carbon Dioxide Anion Gap BUN Creatinine Est Cr Clr Drug Dosing Est GFR ( Amer) Est GFR (Non-Af Amer) BUN/Creatinine Ratio Glucose POC Glucose 99 Calcium Magnesium Diagnostic Findings culture L great toe - pseudomonas, staph PG Care Time/CCT Total # of Minutes Spent Total Time Spent with Patient: Total time spent is greater than 50% in coordination of care (as documented) at patient's floor/unit and/or counseling patient: Coding Level of Care Code 60358 SUB INP/OBS CARE 2/35MIN Diagnoses Gangrene of toe of left foot I96 HFrEF (heart failure with reduced ejection fraction) I50.20 Presence of combination internal cardiac defibrillator (ICD) and pacemaker Z95.810 Inflammatory arthritis M19.90 Peripheral arterial disease I73.9 S/P coronary artery stent placement Z95.5 Hypertension I10 Coronary artery disease I25.10 Ischemic cardiomyopathy I25.5 Diabetes mellitus E11.9 Hypercholesterolemia E78.00 Tobacco abuse Z72.0 S/P CABG x 4 Z95.1 Hypomagnesemia E83.42 Right leg DVT I82.401
[2023-04-21] MEDS: guaiFENesin 600 MG TABCR PO SCH (21:27)
[2023-04-21] MEDS: ALBUTEROL HFA 8 GM INHALER INH SCH (22:10)
[2023-04-22] MEDS: MEROPENEM 500 MG in SYRINGE 0 ML IV SCH ×3 (04:13→16:16)
[2023-04-22] MEDS: HYDROmorphone INJ 0.5 MG/0.5 ML SYR IV PRN ×3 (04:13→17:10)
[2023-04-22 06:14] LABS: BUN Creatinine Ratio 20.9 (10-20); Creatinine Clr Calc Pharmacy 94.7 ml/min; Est GFR (African American) 100.7 ml/min; Est GFR (Non-African American) 86.9 ml/min; Magnesium 1.7 mg/dl (1.7-2.4); Potassium 3.9 mmol/L (3.5-5.1)
[2023-04-22] MEDS: ALBUTEROL HFA 8 GM INHALER INH SCH ×3 (07:32→19:48)
[2023-04-22] MEDS: ISOSORBIDE MONO EXTENDED REL 60 MG TABCR PO SCH (07:52)
[2023-04-22] MEDS: EZETIMIBE 10 MG TAB PO SCH (07:52)
[2023-04-22] MEDS: guaiFENesin 600 MG TABCR PO SCH (07:52)
[2023-04-22] MEDS: METOPROLOL SUCC 25MG EXT REL TAB PO SCH (07:52)
[2023-04-22] MEDS: INSULIN ASPART PER UNIT CHARGE SC SCH ×3 (08:47→17:45)
[2023-04-22] MEDS ORDERED: RANOLAZINE 500 MG ER TAB PO SCH (09:00)
[2023-04-22] MEDS ORDERED: ASPIRIN 81 MG ECTAB PO SCH (09:00)
[2023-04-22] MEDS ORDERED: SPIRONOLACTONE 12.5 MG TAB PO SCH (09:15)
[2023-04-22] MEDS ORDERED: FUROSEMIDE 40 MG TAB PO SCH (09:15)
[2023-04-22] MEDS ORDERED: VANCOMYCIN HCL 1,500 MG in SODIUM CHLORIDE 0.9% 500 ML IV SCH (10:00)
--- NOTE | 2023-04-22 10:00 | Pharmacy Report ---
Pharmacy PK ABX Note - Date of Service April 22, 2023 - Assessment and Plan Assessment 04/22: Today is day 4 of Vancomycin therapy. Blood cultures no growth. MSSA grew from L great toe sensitive to Vanc- SONJA = 2. Pseudomonas aeru sensitive to Meropenem- this was started yesterday. Vancomycin random level obtained today morning after four maintenance doses, so this is at steady state. Random level = 15.1 @ 05:39 today. 04/20: 68 year old M receiving vancomycin/zosyn for treatment of left great toe infection, possible need for amputation/revasc surgery. Pertinent microbiologic data includes: Blood cultures/Left toe culture pending. Previous use of augmentin in the last week. Plan Vancomycin * Current regimen: 1250 mg IV every 12 hours * Random level obtained 04/22/23 resulted as 15.1 mcg/mL. This is predicted to achieve AUC/SONJA of 400-600 mg/L.hr * Predicted AUC at steady state: 472 mg/L.hr. * Will target slightly higher AUC, that is above 500 mg/L.hr, due to ongoing diabetic foot infection that has been non-healing for some time. * Therefore, Vancomycin dosing increased 1500 mg (14.6 mg/kg) IV q12h today AM. * This is predicted to achieve AUC/SONJA of 500-600 mg/L.hr * Repeat random level ordered for: 04/23/23 with AM labs. Pharmacy will continue to follow and will adjust dose/frequency as necessary. Thank you. Pharmacy has transitioned to AUC monitoring for vancomycin. AUC/SONJA is the preferred PK/PD target and is associated with decreased risk of nephrotoxicity compared to traditional trough targets.
[2023-04-22] MEDS ORDERED: Heparin IV Adult Wt-Based Standard *NO* INITIAL Bolus Protocol IV SCH (10:27)
[2023-04-22] MEDS ORDERED: HEPARIN SODIUM/DEXTROSE 25,000 UNITS/500 ML BAG IV SCH (10:45)
--- NOTE | 2023-04-22 11:16 | XRay Report ---
XR chest 1V portable CLINICAL HISTORY: chest pain, dyspnea TECHNIQUE: Single frontal radiograph of the chest was obtained. Comparison: Comparison is made to chest radiograph 1121. FINDINGS: Median sternotomy wires and implanted pacemaker noted. Cardiomegaly is noted. The lungs are clear. No evidence of pleural effusion or pneumothorax. IMPRESSION: No acute chest disease. Cardiomegaly is noted. ACT 112: Negative or not required by law. Electronically signed by: Lauro Zapata M.D. 04/22/2023 11:15 AM
[2023-04-22 11:35] LABS: INR 1.1 (0.9-1.1); Partial Thromboplastin Ratio 1.1; Partial Thromboplastin Time 32 Seconds (21-31); Prothrombin Time 12.3 Seconds (9.0-12.0)
--- NOTE | 2023-04-22 14:31 | Electrocardiogram Report ---
Test Reason : Blood Pressure : / mmHG Vent. Rate : 069 BPM Atrial Rate : 069 BPM P-R Int : 172 ms QRS Dur : 156 ms QT Int : 614 ms P-R-T Axes : 087 068 137 degrees QTc Int : 658 ms Atrial-sensed ventricular-paced rhythm Biventricular pacemaker detected Abnormal ECG When compared with ECG of 21-APR-2023 01:32, Premature ventricular complexes are no longer Present Vent. rate has decreased BY 4 BPM Confirmed by Dennis Damon ([id number]) on 04/22/2023 2:30:49 PM Referred By: REFERRED SELF Confirmed By:Dennis Damon
--- NOTE | 2023-04-22 17:48 | Discharge Summary ---
Date of Service April 22, 2023 Admission HPI Per Admitting Provider The patient is a 68-year-old male with a past medical history including prostatitis, inflammatory arthritis, gout, biventricular ICD placement, PAD, status post coronary artery stent placement, status post insertion of iliac artery stent, hypertension, CAD, ischemic cardiomyopathy, diabetes mellitus, hypercholesterolemia, status post CABG x 4, and tobacco abuse. He was referred to the emergency department due to failure of outpatient treatment for diabetic left great toe infection. Discharge Exam gen - lying in bed flat comfortably, NAD, pleasant neck - no JVD mouth - MMM heart - RRR, s1 s2, 1-2/6 systolic murmur LLSB lungs - left sided course BS with focal wheeze - this cleared when he coughed; otherwise no rales; no increased work of breathing abd - soft NT ND BS+ ext - left foot cool touch with delayed cap refill; L great toe dusky/gangrenous in appearance; lateral aspect of L great toe with large ulceration; foul odor remains vascular - pulses b/l feet <1+ at best; no edema either leg psych - a/o x 3 Discharge Data Allergies Allergy/AdvReac Type Severity Reaction Status Date / Time No Known Allergies Allergy Verified 04/20/23 08:31 Consultations 04/19/23 22:15 ED Decision to Admit Stat 04/19/23 22:56 Consult Podiatry Routine Consult Vascular Surgery Routine 04/20/23 13:43 Consult Cardiology Routine 04/22/23 17:31 Burn CD for patient Stat Ordered Studies 04/20/23 13:42 CT angio LE LT w inc wo if don Routine Hospital Course (1) Gangrene of toe of left foot: remains on IV zosyn + IV vancomycin. culture with pseudomonas - intermediate sensitivity to zosyn. also with staph. d/c zosyn. change to meropenem. cont vanco. recently hospitalized at [facility] for same infection - was d/c home on augmentin; culture results from that admission are not available. podiatry - Dr Cruz; vascular surgery - Dr Layne -- consulted for management of this issue. has severe PAD of b/l LEs on CTA of LEs. I spoke with Dr Layne - he recommends BKA on left rather than left great toe amputation by itself. He is concerned that even with intervention of his severe b/l LE PAD with bypass that he will not have enough blood flow to the left foot for optimal healing. He also recommends transfer to tertiary care for these procedures. patient chose [facility]. if he needs BKA he will do such. will follow cultures. change morphine to dilaudid for pain control. plan to contact [facility] in am. (2) HFrEF (heart failure with reduced ejection fraction): EF 25-30% by report. etiology- ischemic cardiomyopathy. cont meto succ 25mg daily. resume PO lasix and PO aldactone in am tomorrow if BMP is stable. uncertain why he is not on Entresto therapy. appreciate Cardiology consultation and recs. (3) Presence of combination internal cardiac defibrillator (ICD) and pacemaker: by report device functioning well (4) Inflammatory arthritis: gout + other condition?? last rheumatology office note is from [address] Olimpia Campbell .... [facility] Rhe[facility]? remains on allopurinol prophylaxis typically is on colchicine 0.6mg TID + evolocumab per med list not on chronic steroid therapy from what I can see hold colchicine in light of upcoming surgery (5) Peripheral arterial disease: SEVERE CTA LEs with b/l femoral artery stenoses should remain on statin, aspirin, etc bypass at tertiary care? appreciate vascular surgery assistance (6) S/P coronary artery stent placement: 4 stents prior to his 4-vessel CABG (latter - [facility]) no recent ischemic symptoms typically on aspirin, statin, beta jennifer, Ranexa, imdur resume Ranexa resume aspirin (7) Hypertension: cont home meds (8) Coronary artery disease: as above (9) Ischemic cardiomyopathy: EF 25-30% stop IVF did receive IV lasix last pm but he has not examined volume overloaded this admission if BMP stable in am resume usual doses of PO lasix with aldactone (10) Diabetes mellitus: a1c 7.6% cont basal-bolus insulin (11) Hypercholesterolemia: statin (12) Tobacco abuse: offered nicoderm patch but he declined for now (13) S/P CABG x 4: noted [facility] (14) Hypomagnesemia: 2nd diuretics replace again with 2 grams mag sulfate IV repeat mag level am (15) Right leg DVT: venous duplex study at [facility] in March showed "age indeterminate" DVT of the right femoral vein as well as a superficial thrombosis in the GSV Eliquis initiated during that admission? At this time - in light of needing vascular and orthopedic interventions - Eliquis is on hold If surgery is delayed would bridge with heparin Plan will contact [facility] tomorrow Discharge Plan Discharge Items Patient Disposition: Transfer Acute Care Hospital Reason For Visit: Gangrene of Left Great Toe Discharge Diagnosis: 1. Left great toe gangrene with cultures growing pseudomonas + MSSA 2. SEVERE PAD of b/l lower extremities with numerous occluded vessels 3. Ischemic cardiomyopathy 4. CAD s/p CABG 5. ICD 6. Right leg DVT (femoral vein - recent diagnosis at [facility] 03/2023) 7. Hypomagnesemia 8. Diabetes 9. Tobacco use Activity: Resume your previous activity Weightbearing: Left partial Non-emergency contact: Primary Care Provider and Specialist Call non-emergency contact if: you have any medication questions Follow-up/Referrals: Domingo Valentino MD [Primary Care Provider] - Diet: Carb Consistent or DM2 and Heart Healthy Fluids: 1500ml (6 cups) Addtl Attending Provider Instructions: Further instructions to follow after your hospitalization at [facility]. Pending Studies at Discharge: Yes Studies:: blood cultures; wound culture L great toe Stand-Alone Forms: My [facility] [employer] Skilled Items Patient informed of condition?: Yes DNR: No Discharge Level of Care: Other Communicable Disease: No Discharge Prognosis: Stable Lines: Peripheral IV Urinary Catheter: No Medications and DC Order Prescriptions: Continued (DME) FreeStyle Sandy 2 Sensor Kit See Rx Instructions .Route Qty: 2 5RF Rx Instructions: As directed to check blood sugars at least once every 8 hours; change every 14 days (DME) pen needle, diabetic [BD Ultra-Fine Short Pen Needle] 31 gauge x 5/16" needle See Rx Instructions .ROUTE .MEDSUPPLY Qty: 100 3RF Rx Instructions: As cvdjaofh-4-1 times per day for insulin administration trazodone 100 mg tablet 50 mg PO HS Qty: 45 3RF Rx Instructions: TAKE 1 TABLET BY MOUTH AT BEDTIME allopurinol 300 mg tablet 600 mg PO .COMPLEX Qty: 60 2RF Rx Instructions: Take 600mg w/ 100mg by mouth once in the morning for a total dose of 700mg in the morning allopurinol 100 mg tablet 100 mg PO DAILY Qty: 90 2RF Rx Instructions: Take 600mg w/ 100mg by mouth once in the morning for a total dose of 700mg in the morning insulin glargine [Lantus Solostar U-100 Insulin] 100 unit/mL (3 mL) insulin pen 44 unit subcut HS Qty: 15 2RF Hold Instructions: hypoglycemia Repatha SureClick 140 mg/mL pen injector 140 mg subcut .Every 2 weeks Qty: 2 3RF aspirin [Adult Low Dose Aspirin] 81 mg tablet,delayed release (DR/EC) 81 mg PO DAILY atorvastatin 80 mg tablet 80 mg PO .evening Qty: 90 3RF nitroglycerin 0.4 mg tablet, sublingual 0.4 mg sublingual Q5M PRN (Reason: Pain) Qty: 14 5RF Rx Instructions: do not exceed 3 doses per episode ezetimibe 10 mg tablet 10 mg PO DAILY Qty: 90 3RF isosorbide mononitrate 120 mg tablet extended release 24 hr 120 mg PO DAILY Qty: 90 3RF ranolazine 1,000 mg tablet extended release 12 hr 1,000 mg PO BID Qty: 180 3RF Rx Instructions: TAKE 1 TABLET BY MOUTH TWICE A DAY furosemide 20 mg tablet 40 mg PO DAILY spironolactone 25 mg tablet 12.5 mg PO DAILY metoprolol succinate 25 mg tablet extended release 24 hr 25 mg PO HS Held colchicine 0.6 mg tablet 0.6 mg PO TID Qty: 270 2RF Hold Instructions: hold until [facility] resumes varenicline [Chantix] 1 mg tablet 1 mg PO BID Qty: 120 1RF Hold Instructions: hold until your hospital stay is over at [facility] Eliquis 5 mg tablet 5 mg PO BID Hold Instructions: hold until [facility] resumes Rx Instructions: Take 2 tablets by mouth 2 times a day for 5 days, then take 1 tablet by mouth 2 times a day Discontinued amoxicillin-pot clavulanate 875-125 mg tablet 1 tab PO BID Rx Instructions: Start Date 04/09/23 - End Date 04/23/23 Discharge Orders: Discharge Order (Routine); Ordered 04/22/23 Ordered By: Benito Garsia Admission Data Admit Date/Time: 04/19/23 22:56 Attending Provider: Benito Garsia Admit Provider: Pradeep Bailey Primary Care Provider: Domingo Valentino Other Providers: Neymar Cruz; Hernan Layne; Pradeep Bailey; Wilton Reina; Daniel Andrade; Dennis Damon; Saad Aguiar; Maxi Aguilar; Vignesh Simpson Jr; Kevin Alvarez; Niocle Sullivan; Shelley Torres; Nicholas Peres; Nicholas Lehman; Kenneth Edward; Yasmeen Christian; Ngoc Wells; Mario Alberto Hamilton; James Hawley; Saad Blair V.; Walt Lala Coding Diagnoses Gangrene of toe of left foot I96 HFrEF (heart failure with reduced ejection fraction) I50.20 Presence of combination internal cardiac defibrillator (ICD) and pacemaker Z95.810 Inflammatory arthritis M19.90 Peripheral arterial disease I73.9 S/P coronary artery stent placement Z95.5 Hypertension I10 Coronary artery disease I25.10 Ischemic cardiomyopathy I25.5 Diabetes mellitus E11.9 Hypercholesterolemia E78.00 Tobacco abuse Z72.0 S/P CABG x 4 Z95.1 Hypomagnesemia E83.42 Right leg DVT I82.401
[2023-04-22 18:12] LABS: ANTI-Xa, UFH(UnfractionatedHep 0.17 IU/ml (0.3-0.7)
[2023-04-22] MEDS ORDERED: HEPARIN SOD (PORCINE) 1000 UNIT/ML IV ONE (18:25)
== END 2023-04-22 20:35 | disposition short-term general hospital (02) | DRG 300 ==
LOC: ED 19:09 → SUATTDRO 22:56 → EDINP 22:56 → 2N 04-20 01:07

== ENCOUNTER 2023-12-15 06:24 | Inpatient (IN) ==
--- NOTE | 2023-12-12 10:00 | Anesthesiology Consultation ---
Date of Service December 12, 2023 Assessment & Plan Chart Review Chart Review: Acceptable Risk for Surgery and Patient NOT seen in Pre Admission Testing Consults Requested none History Surgery Operation Date: 12/15/23 10:15 Proposed Procedures p Left Femoral to Peroneal Cadaver Vein Bypass - Hernan Layne MD Height/Weight Height: 5 ft 10 in Weight: 104.326 kg Allergies Allergy/AdvReac Type Severity Reaction Status Date / Time No Known Allergies Allergy Verified 12/10/23 05:47 Medications Home Medications Medication Instructions Recorded Confirmed Last Taken pen needle, diabetic 31 gauge x #100 ea 11/08/22 12/07/23 Unknown 5/16" (BD Ultra-Fine Short Pen Needle) metoprolol succinate 25 mg 25 mg PO HS 04/20/23 12/10/23 12/09/23 22:00 tablet,extended release 24 hr nitroglycerin 0.4 mg sublingual 0.4 mg sublingual Q5M PRN Pain #14 06/08/23 12/10/23 Unknown tablet tabs peg 3350-electrolytes 236 240 ml PO .COMPLEX #4,000 mL 07/23/23 12/10/23 Unknown gram-22.74 gram-6.74 gram-5.86 gram solution (Golytely) empagliflozin 25 mg tablet 25 mg PO QAM 07/26/23 12/10/23 12/09/23 10:00 (Jardiance) ezetimibe 10 mg tablet 10 mg PO QAM 07/26/23 12/10/23 12/09/23 10:00 ferrous gluconate 324 mg (37.5 mg 324 mg PO QAM 07/26/23 12/10/23 10/28/23 08:00 iron) tablet magnesium oxide 400 mg PO QAM 07/26/23 12/10/23 12/09/23 10:00 isosorbide mononitrate 120 mg 120 mg PO QAM #90 tabs 08/10/23 12/10/23 12/09/23 10:00 tablet,extended release 24 hr allopurinol 100 mg tablet 100 mg PO QAM #90 tabs 08/24/23 12/10/23 12/09/23 10:00 allopurinol 300 mg tablet 600 mg (2 x 300 mg) PO QAM #180 08/24/23 12/10/23 12/09/23 10:00 tabs apixaban 5 mg tablet (Eliquis) 5 mg PO BID #180 tabs 08/24/23 12/10/23 12/08/23 22:00 furosemide 40 mg tablet 40 mg PO QAM #90 tabs 08/24/23 12/10/23 12/08/23 10:00 sacubitril 24 mg-valsartan 26 mg 1 tab PO BID #60 tabs 08/27/23 12/10/23 4 22:00 tablet (Entresto) doxepin 6 mg tablet 6 mg PO HS #60 tabs 09/13/23 12/10/23 12/09/23 22:00 ranolazine 1,000 mg 1,000 mg PO BID #180 tabs 09/21/23 12/10/23 12/09/23 10:00 tablet,extended release,12 hr acetaminophen 650 mg 1,300 mg (2 x 650 mg) PO Q12H #120 09/30/23 12/10/23 12/09/23 22:00 tablet,extended release (Tylenol tabs Arthritis Pain) atorvastatin 80 mg tablet 80 mg PO HS #90 tabs 10/06/23 12/10/23 12/09/23 22:00 pantoprazole 40 mg tablet,delayed 40 mg PO BID #180 tabs 10/21/23 12/10/23 12/09/23 22:00 release insulin glargine 100 unit/mL (3 50 - 55 unit subcut PM 10/29/23 12/10/23 12/09/23 21:00 mL) subcutaneous pen (Lantus Solostar U-100 Insulin) clopidogrel 75 mg tablet 75 mg PO QAM #90 tabs 11/03/23 12/10/23 12/08/23 22:00 ibuprofen 200 mg tablet 600 mg PO Q6H PRN Pain 12/01/23 12/10/23 12/09/23 14:00 flash glucose sensor (FreeStyle #2 ea 12/09/23 Unknown Sandy 2 Sensor kit) Past Medical History Medical History Hx of upper gastrointestinal hemorrhage (05/2023) Presence of combination internal cardiac defibrillator (ICD) and pacemaker [facility] [employer] pulse generator implanted 05/2021, guided RV ICD lead, Medtronic atrial pacing lead, [facility] coronary sinus lead Peripheral arterial disease Peptic ulcer disease Ischemic cardiomyopathy 03/2023 EF 24% Inflammatory arthritis Hypercholesterolemia Hypertension Hx of gout Gangrene of left foot seen by Fang Cruz at [facility]. [facility] today - started on an abx, pt. unsure of name, has not yet picked up from pharmacy - she advised pt. that she feels all toes on left foot need to be removed and is sending info to Dr. Layne CAD (coronary artery disease) s/p CABG x 4 in 2010, 2 stents in 2003 Intermittent claudication History of anemia (05/2023) due to blood loss HFrEF (heart failure with reduced ejection fraction) Diabetic infection of left foot seen by Fang Cruz at [facility]. [facility] today - started on an abx, pt. unsure of name, has not yet picked up from pharmacy - she advised pt. that she feels all toes on left foot need to be removed and is sending info to Dr. Layne Diabetes mellitus Bilateral carotid bruits ASCVD (arteriosclerotic cardiovascular disease) Arthritis History of DVT of lower extremity (04/2023) right leg -unknown cause Adenomatous polyps hx Past Family History Family History Father , age 72 Diabetes Colonic polyp Hypertension Kidney disease Heart disease Dyslipidemia Coronary heart disease, Onset Age: 63 CABG Mother Lung disease Lung cancer, Onset Age: 70 small cell 71 Denies family history of Ovarian cancer Prostate cancer Deep vein thrombosis Alzheimer disease Dementia Depression Myocardial infarction Breast cancer Colorectal cancer Pulmonary embolism Stroke Asthma Past Surgical History Surgical History Hx of colonoscopy with polypectomy History of esophagogastroduodenoscopy (EGD) S/P insertion of iliac artery stent x2; 05/2011- right illiac- x stent; 2018, [facility], x1 stent History of implantable cardioverter-defibrillator (ICD) insertion w/pacemaker; 05/2021, [facility], [facility]; f/u [facility] Hx of vascular surgery (04/2023) 04/2023 "replaced the entire artery in lt leg with an artificial one", [facility] Status post angioplasty with stent (07/27/22) [facility] x5 stents lt leg, w/ dr. layne History of heart artery stent (2009) 02/28/04, CP/abn stress test, [facility], x2 stents ~2009, CP/abn stress test, [facility], x2 stents; follows [facility] History of cardiac cath (2009) x2 02/28/04, CP/abn stress test, [facility], x2 stents ~2009, CP/abn stress test, [facility], x2 stents follows with [facility] History of amputation of great toe (05/2023) left, due to post op infection S/P CABG x 4 (2010) had been getting sick w/ N/V-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, 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; done @ [facility] Social History Smoking Status: Former smoker tobacco type: cigarettes Smoking cigarettes per day: quit 04/2023 (1/2 ppd) Do You Dip or Chew Tobacco: No Hx Alcohol Use: Yes Alcohol type: beer alcohol intake frequency: a few times a month Hx Substance Use: No substance use type: does not use Lab Results Anesthesia Preop Results Results Anesthesia Widget: WBC 8.05 K/ul (4.8-10.8) 12/10/23 Hgb 14.6 g/dl (14.0-18.0) 12/10/23 Hct 43.7 % (42.0-52.0) 12/10/23 Plt 247 K/uL (130-400) 12/10/23 Na 135 mmol/L (136-145) L 12/12/23 K 4.7 mmol/L (3.5-5.1) 12/12/23 Cl 104 mmol/L (98-107) 12/12/23 CO2 25 mmol/L (21-32) 12/12/23 BUN 23 mg/dl (6-23) 12/12/23 Creat 0.85 mg/dl (0.6-1.4) 12/12/23 Glucose Level 167 mg/dl (70-99(Fasting)) H 12/12/23 POC Glucose 132 mg/dl (70-99) H 12/10/23 HA1c 8.0 % (4.5-5.6) H 12/12/23 Testing Electrocardiogram Date: 04/22/23 Atrial-sensed ventricular-paced rhythm, rate 69 bpm Biventricular pacemaker detected Abnormal ECG When compared with ECG of 21-APR-2023 01:32, Premature ventricular complexes are no longer Present Vent. rate has decreased BY 4 BPM Confirmed by Dennis Damon ([id number]) on 04/22/2023 2:30:49 PM Other Testing Echocardiogram Date: 04/23/23 EF 39% Severely dilated LV Grade III diastolic dysfunction Severely dilated LA Restricted posterior mitral valve leaflet with at least moderate regurgitation Mild tricuspid regurgitation Other Testing ICD report 11/26/23 [facility] AP: 25% CRTp: 97% Mode: DDDR Left lower extremity CTA 04/19/23 1. Complete thrombosis of the left superficial femoral artery, as well as near complete thrombosis of the left popliteal artery. 2. Stents within the left superficial femoral artery are occluded. 3. There is short-segment occlusion at the origin of the anterior tibial artery with distal reconstitution. 4. There is thready flow within the left posterior tibial artery, which is largely occluded distally. This reconstitutes above the foot. 5. Complete thrombosis of the right superficial femoral artery. 6. Imaged portions of the right lower extremity arterial bypass are patent. 7. Additional findings as above. Carotid doppler 06/19/22 1. There is no sonographic evidence of hemodynamically significant stenosis in the right or left carotid arterial system. 2. Antegrade flow is shown in the vertebral arteries.
--- NOTE | 2023-12-14 11:04 | History & Physical Report ---
Date of Service December 14, 2023 Assessment & Plan (1) Peripheral arterial disease: Plan: At this point we recommended a limb salvage procedure. Being that he has no saphenous vein and he has failed a prosthetic we recommended a cadaver vein bypass from the common femoral artery down to the peroneal. I have discussed the risks options and benefits of the procedure with the patient. The patient understands the risks options and benefits and agrees to the procedure. History of Present Illness Primary Care Provider: Domingo Valentino MD Mr Vila is a 68-year-old gentleman with a nonhealing ulcer over his left great toe amputation site. He is getting some discomfort in the left foot as he had prior to his femoral to posterior tibial prosthetic bypass which has occluded. He underwent arteriography recently which showed a patent peroneal artery from its origin down to the ankle with collateral flow to the foot. He recently underwent a TMA for the non healing wound. Allergies Allergy/AdvReac Type Severity Reaction Status Date / Time No Known Allergies Allergy Verified 12/10/23 05:47 Home Medications Medication Instructions Recorded Confirmed Type pen needle, diabetic 31 gauge x #100 ea 11/08/22 12/07/23 Rx 5/16" (BD Ultra-Fine Short Pen Needle) metoprolol succinate 25 mg 25 mg PO HS 04/20/23 12/10/23 History tablet,extended release 24 hr nitroglycerin 0.4 mg sublingual 0.4 mg sublingual Q5M PRN Pain #14 06/08/23 12/10/23 Rx tablet tabs peg 3350-electrolytes 236 240 ml PO .COMPLEX #4,000 mL 07/23/23 12/10/23 Rx gram-22.74 gram-6.74 gram-5.86 gram solution (Golytely) empagliflozin 25 mg tablet 25 mg PO QAM 07/26/23 12/10/23 History (Jardiance) ezetimibe 10 mg tablet 10 mg PO QAM 07/26/23 12/10/23 History ferrous gluconate 324 mg (37.5 mg 324 mg PO QAM 07/26/23 12/10/23 History iron) tablet magnesium oxide 400 mg PO QAM 07/26/23 12/10/23 History isosorbide mononitrate 120 mg 120 mg PO QAM #90 tabs 08/10/23 12/10/23 Rx tablet,extended release 24 hr allopurinol 100 mg tablet 100 mg PO QAM #90 tabs 08/24/23 12/10/23 Rx allopurinol 300 mg tablet 600 mg (2 x 300 mg) PO QAM #180 08/24/23 12/10/23 Rx tabs apixaban 5 mg tablet (Eliquis) 5 mg PO BID #180 tabs 08/24/23 12/10/23 Rx furosemide 40 mg tablet 40 mg PO QAM #90 tabs 08/24/23 12/10/23 Rx sacubitril 24 mg-valsartan 26 mg 1 tab PO BID #60 tabs 08/27/23 12/10/23 Rx tablet (Entresto) doxepin 6 mg tablet 6 mg PO HS #60 tabs 09/13/23 12/10/23 Rx ranolazine 1,000 mg 1,000 mg PO BID #180 tabs 09/21/23 12/10/23 Rx tablet,extended release,12 hr acetaminophen 650 mg 1,300 mg (2 x 650 mg) PO Q12H #120 09/30/23 12/10/23 Rx tablet,extended release (Tylenol tabs Arthritis Pain) atorvastatin 80 mg tablet 80 mg PO HS #90 tabs 10/06/23 12/10/23 Rx pantoprazole 40 mg tablet,delayed 40 mg PO BID #180 tabs 10/21/23 12/10/23 Rx release clopidogrel 75 mg tablet 75 mg PO QAM #90 tabs 11/03/23 12/10/23 Rx ibuprofen 200 mg tablet 600 mg PO Q6H PRN Pain 12/01/23 12/10/23 History flash glucose sensor (FreeStyle #2 ea 12/09/23 Rx Sandy 2 Sensor kit) insulin glargine 100 unit/mL (3 50 - 55 unit (0.5 - 0.55 mL) 12/13/23 Rx mL) subcutaneous pen (Lantus subcut PM #45 mL Solostar U-100 Insulin) Past Med/Surg History Problem List Encounter for pre-operative examination Skin tear of left upper arm without complication 09/13/23 Insomnia Wound of groin 06/16/23 Blood loss anemia 05/23/23 Upper GI bleed hx-05/2023 Superficial postoperative wound infection hx>lt big toe>removed 05/2023 Peptic ulcer disease Melena resolved Status post amputation of left great toe Right leg DVT Hypomagnesemia Gangrene of toe of left foot HFrEF (heart failure with reduced ejection fraction) ASCVD (arteriosclerotic cardiovascular disease) Presence of combination internal cardiac defibrillator (ICD) and pacemaker Preop cardiovascular exam Diabetic infection of left foot Infection of great toe (Acute) No pertinent past surgical history Urinary frequency 09/11/22 Prostatitis 09/11/22 Microscopic hematuria 09/01/22 Left wrist pain resolved Inflammatory arthritis Leg edema, left 08/07/22 Gout attack 08/07/22 Intractable nausea and vomiting 07/28/22 Biventricular ICD (implantable cardioverter-defibrillator) in place [employer] pulse generator implanted 05/2021, guided RV ICD lead, Medtronic atrial pacing lead, Saint [employer] coronary sinus lead Bilateral carotid bruits Peripheral arterial disease Fatigue Lumbar back pain with radiculopathy affecting left lower extremity Claudication S/P coronary artery stent placement DES09/19/2020 S/P insertion of iliac artery stent 05/2011 right iliac Pacemaker Hypertension Hearing difficulty History of gout Coronary artery disease Arthritis Ischemic cardiomyopathy 03/2023 EF 24% Diabetes mellitus Hypercholesterolemia Tobacco abuse Medical History Hx of upper gastrointestinal hemorrhage (05/2023) Presence of combination internal cardiac defibrillator (ICD) and pacemaker [employer] pulse generator implanted 05/2021, guided RV ICD lead, Medtronic atrial pacing lead, Saint [employer] coronary sinus lead Peripheral arterial disease Peptic ulcer disease Ischemic cardiomyopathy 03/2023 EF 24% Inflammatory arthritis Hypercholesterolemia Hypertension Hx of gout Gangrene of left foot seen by Fang Cruz at [facility]. [facility] today - started on an abx, pt. unsure of name, has not yet picked up from pharmacy - she advised pt. that she feels all toes on left foot need to be removed and is sending info to Dr. Layne CAD (coronary artery disease) s/p CABG x 4 in 2010, 2 stents in 2003 Intermittent claudication History of anemia (05/2023) due to blood loss HFrEF (heart failure with reduced ejection fraction) Diabetic infection of left foot seen by Fang Cruz at [facility]. [facility] today - started on an abx, pt. unsure of name, has not yet picked up from pharmacy - she advised pt. that she feels all toes on left foot need to be removed and is sending info to Dr. Layne Diabetes mellitus Bilateral carotid bruits ASCVD (arteriosclerotic cardiovascular disease) Arthritis History of DVT of lower extremity (04/2023) right leg -unknown cause Adenomatous polyps hx Surgical History Hx of colonoscopy with polypectomy History of esophagogastroduodenoscopy (EGD) S/P insertion of iliac artery stent x2; 05/2011- right illiac- x stent; 2018, [facility], x1 stent History of implantable cardioverter-defibrillator (ICD) insertion w/pacemaker; 05/2021, [facility]; f/u [facility] Hx of vascular surgery (04/2023) 04/2023 "re[place] the [place] artery in [place] with an artificial one[place] [facility] [place] post angioplasty with stent (07/27/22) [facility] x5 stents lt leg, w/ dr. layne History of heart artery stent (2009) 02/28/04, CP/abn stress test, [facility], x2 stents ~2009, CP/abn stress test, [facility], x2 stents; follows with [facility] follows with [facility] in [facility] History of cardiac cath (2009) x2 02/28/04, CP/abn stress test, [facility], x2 stents ~2009, CP/abn stress test, 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 Family History Father , age 72 Diabetes Colonic polyp Hypertension Kidney disease Heart disease Dyslipidemia Coronary heart disease, Onset Age: 63 CABG Mother Lung disease Lung cancer, Onset Age: 70 small cell 71 Denies family history of Ovarian cancer Prostate cancer Deep vein thrombosis Alzheimer disease Dementia Depression Myocardial infarction Breast cancer Colorectal cancer Pulmonary embolism Stroke Asthma Social History Smoking Status: Former smoker Tobacco Type: Cigarettes Age Started Using Tobacco: 17; Cigarettes Per Day: quit 04/2023 (1/2 ppd); Second Hand Exposure: No; Do You Dip or Chew Tobacco: No; Hx Alcohol Use: Yes Alcohol type: beer Alcohol Intake Frequency: Monthly or Less Alcohol Intake Frequency Comment: 4-5 beers monthly Hx Substance Use: No Preferred Language: Nepali Communication Ability: Effective Visual Impairment: Limited Hearing Ability: Use of Hearing Aid [employer] Technicians Required: No Beliefs That Will Affect Care: None marital status: Current Living Situation: Spouse Current Living Situation Comment: Demetrice and daughter current occupational status: disabled How many Children do You have: 4 Feels Safe at Home: Yes Childhood Exposure to Second-Hand Smoke: Yes Diet: regular caffeine: Yes during the past year weight has: remained stable Dental Care, Regularly: No Physical Activity Frequency: Does not Exercise Seatbelt Use: always Sunscreen Use: Yes Do you think of yourself as: straight/heterosexual Gender Identity: Male Assistive Devices: Cane, Denture - Lower, Glasses and Hearing Aid - Bilateral Review of Systems All systems reviewed & are unremarkable except as noted in HPI & below Physical Exam Physical Exam: On exam he is awake alert and oriented x 3. His blood pressure 92/50. His radials are +2 bilaterally. Femorals are +2. I cannot appreciate pedal pulse in the left lower extremity. The foot is red and distally in the toes. There is a recent transmetatarsal amputation site of the left foot . Lungs are clear. Cor has a RRR. abdominal exam is benign.
[2023-12-15] MEDS: LACTATED RINGER'S 1,000 ML BAG IV SCH (06:54)
[2023-12-15] MEDS ORDERED: ATROPINE SULFATE 0.1 MG/ML 10ML SYR IV PRN (07:04)
[2023-12-15] MEDS ORDERED: fentaNYL citrate PF 100 MCG/2 ML VIAL IV PRN (07:04)
[2023-12-15] MEDS ORDERED: ONDANSETRON INJ 2 MG/ML 2 ML VIAL IV PRN (07:04)
[2023-12-15] MEDS ORDERED: HYDROmorphone INJ 1 MG/ML SYRINGE IV PRN (07:04)
[2023-12-15] MEDS ORDERED: ePHEDrine sulfate 50 MG/ML AMP IV PRN (07:04)
[2023-12-15] MEDS ORDERED: MIDAZOLAM HCL 1 MG/ML 2ML VIAL ONE (07:17)
[2023-12-15] MEDS ORDERED: fentaNYL citrate PF 100 MCG/2 ML VIAL ONE (07:17)
[2023-12-15 07:27] LABS: Partial Thromboplastin Ratio 1.2; Partial Thromboplastin Time 32 Seconds (21-31)
[2023-12-15] MEDS ORDERED: DEXAMETHASONE SOD INJ 4 MG/ML VIAL ONE (07:29)
[2023-12-15] MEDS ORDERED: GLYCOPYRROLATE 0.2 MG/ML VIAL ONE ×2 (07:29→14:15)
[2023-12-15] MEDS ORDERED: ROCURONIUM BROMIDE 10 MG/ML 5 ML VIAL IV ONE ×4 (07:29→12:36)
[2023-12-15] MEDS ORDERED: NITROGLYCERIN/D5W 100 MCG/ML BTL ONE (07:29)
[2023-12-15] MEDS ORDERED: ONDANSETRON INJ 2 MG/ML 2 ML VIAL ONE (07:29)
[2023-12-15] MEDS ORDERED: PROPOFOL IV EMULSION 10 MG/ML 20 ML VIAL IV ONE (07:29)
[2023-12-15] MEDS ORDERED: LIDOCAINE 2% 2 ML VIAL/AMP(20MG/ML) INFIL ONE (07:29)
--- NOTE | 2023-12-15 07:34 | History & Physical Bridge Note ---
Date of Service December 15, 2023 History & Physical Bridge Note I have examined the patient, reviewed the History & Physical and in the interval since the performance of the History & Physical I have noted the following changes of clinical significance: no changes noted
[2023-12-15] MEDS ORDERED: REMIFENTANIL HCL 1 MG VIAL IV ONE (07:36)
[2023-12-15] MEDS ORDERED: ALBUMIN HUMAN 5% 12.5 GM/250 ML VIAL IV ONE (07:36)
[2023-12-15] MEDS ORDERED: ACETAMINOPHEN 1000 MG/100 ML IV IV ONE (07:36)
[2023-12-15] MEDS: CEFAZOLIN 2,000 MG/15 ML SYR IV SCH (07:59)
[2023-12-15] MEDS ORDERED: KETAMINE HCL 10MG/ML SYR ONE (08:08)
[2023-12-15] MEDS ORDERED: ePHEDrine sulfate 50 MG/5 ML SYR ONE (09:38)
[2023-12-15 11:45] LABS: iSTAT Hemoglobin 9.9 g/dl (14.0-18.0); iSTAT Ionized Calcium 1.14 mmol/l (1.12-1.32); iSTAT Potassium 4.6 mmol/L (3.3-5.0)
[2023-12-15 11:45] LABS: iSTAT Hemoglobin 10.2 g/dl (14.0-18.0); iSTAT Ionized Calcium 1.14 mmol/l (1.12-1.32); iSTAT Potassium 5.4 mmol/L (3.3-5.0)
[2023-12-15] MEDS: ceFAZolin 2000MG 2,000 MG/15 ML SYR IV STA (11:59)
[2023-12-15] MEDS ORDERED: HYDROmorphone INJ 2 MG/ML SYR/VIAL ONE (12:43)
[2023-12-15] MEDS ORDERED: PROTAMINE SULFATE 10 MG/ML 5 ML VIAL IV ONE ×4 (14:09→14:10)
[2023-12-15] MEDS ORDERED: NEOSTIGMINE METHYLSULFATE 1 MG/ML 10ML VIAL ONE (14:15)
[2023-12-15] MEDS: GELATIN SPONGE SZ 100 ONE (14:22)
[2023-12-15] MEDS: ceFAZolin 330 MG/ML 1 GM VIAL ONE (14:22)
[2023-12-15] MEDS: HEPARIN (PORCINE) 1000 UNIT/ML 10 ML (CATH LAB USE ONLY) ONE (14:23)
[2023-12-15] MEDS: SURGICEL ABSORB HEMOSTAT 2IN X 14IN TOP ONE (14:24)
--- NOTE | 2023-12-15 14:41 | Post Operative Brief Note ---
Immediate Post Op Note Date of Surgery December 15, 2023 Pre & Post Diagnosis Operation Date: 12/15/23 08:00 Pre-Op Diagnosis: Artherosclerosis [place] arteries of left extremity Post-Op Diagnosis: Artherosclerosis [place] arteries of left extremity I identified the patient and participated in the time-out.: Yes Procedure Operation Date: 12/15/23 08:00 Actual Procedures p Left Femoral to Peroneal Cadaver Vein Bypass(Left), Patch angioplasty left peroneal artery- Hernan Layne MD Surgeon Hernan Layne MD Cost And Risk Analysis Manager none Estimated Blood Loss 1,500 Findings Consistent with Post-Op Diagnosis Drains Reece Catheter Anesthesia Type General Complications none Disposition Accompanied Patient To Recovery: No Disposition: Recovery Room
[2023-12-15] MEDS: NovoLIN-R INSULIN PER UNIT CHARGE ONE (14:53)
[2023-12-15] MEDS ORDERED: INSULIN HUMAN REGULAR PER UNIT 5 UNITS in SYRINGE 0 ML IV STA (14:54)
[2023-12-15] MEDS ORDERED: ceFAZolin 330 MG/ML 1 GM VIAL ONE (14:54)
[2023-12-15 15:03] LABS: Hematocrit (blood only) 33.2 % (42.0-52.0); Mean Corpuscular Hemoglobin 30.6 pg (25.0-34.0); Mean Corpuscular Hgb Conc 33.1 g/dL (32.0-36.0); Mean Corpuscular Volume 92.2 fL (80.0-100.0); Mean Platelet Volume 9.5 fL (9.4-12.4); Platelet Count 197 K/uL (130-400); RDW Coefficient of Variation 15.2 % (11.5-14.5); RDW Standard Deviation 51.6 fL (36.4-46.3); White Blood Count 10.39 K/ul (4.8-10.8)
--- NOTE | 2023-12-15 15:15 | Critical Care Consultation ---
Date of Consultation December 15, 2023 Assessment & Plan (1) Blood loss anemia: (2) Peripheral arterial disease: (3) Diabetes mellitus: (4) Ischemic cardiomyopathy: Plan Impression: 68-year-old male with ischemic cardiomyopathy diabetes and nonhealing ulcer of the left foot status post limb salvage revascularization today. Cadaveric vein was used for femoral to peroneal bypass graft. Recommendations: 1. Peripheral vascular disease: Status post bypass graft. Management per vascular surgery. Continue neurovascular checks and pulse checks. Pain management per vascular surgery 2. Heart failure with reduced ejection fraction: Euvolemic currently. Continue outpatient medications as tolerated. 3. Postoperative blood loss: Weight follow-up CBC. May require additional transfusion of packed cells. Defer anticoagulation to vascular surgery. Await postoperative labs 4. Diabetes: Continue outpatient medications. May need to cover with insulin therapy 5. Continue oxygen post operatively and titrate to keep oxygen saturations at or above 90%. Will continue to monitor in the ICU pending stabilization. Feel free to contact us with questions or concerns in the interim. History of Present Illness Attending Physician: Hernan Morgan MD History of Present Illness Asked by vascular surgery to assist in evaluation management this patient postoperatively status post femoral distal redo bypass. History is obtained from discussion with the patient vascular surgery as well as review the electronic medical record. Patient is a 68-year-old male with a significant history of peripheral vascular disease, heart failure, diabetes, gout, hyperlipidemia with a nonhealing ulcer status post left great toe amputation. He had persistent claudication and had undergone a previous femoral to posterior tibial prosthetic bypass which occluded. He had been undergo a transmetatarsal amputation due to the nonhealing wound. He was evaluated for a limb salvage procedure and was presented the option of a cadaveric vein bypass from the common femoral down to the peroneal. He agreed to proceed and underwent that procedure today. Procedure was prolonged due to difficulty with prior scar tissue and had an estimated blood loss of about 1.5 L. Patient was seen in the PACU. He is awake alert and conversant. He denies any pain. He has dopplerable pulses in the posterior tibial per the PACU nurse. He denies any chest pain or palpitations. Allergies Allergy/AdvReac Type Severity Reaction Status Date / Time No Known Allergies Allergy Verified 12/15/23 06:40 Home Medications Medication Instructions Recorded Confirmed Type pen needle, diabetic 31 gauge x #100 ea 11/08/22 12/07/23 Rx 5/16" (BD Ultra-Fine Short Pen Needle) metoprolol succinate 25 mg 25 mg PO HS 04/20/23 12/15/23 History tablet,extended release 24 hr nitroglycerin 0.4 mg sublingual 0.4 mg sublingual Q5M PRN Pain #14 06/08/23 12/15/23 Rx tablet tabs peg 3350-electrolytes 236 240 ml PO .COMPLEX #4,000 mL 07/23/23 12/15/23 Rx gram-22.74 gram-6.74 gram-5.86 gram solution (Golytely) empagliflozin 25 mg tablet 25 mg PO QAM 07/26/23 12/15/23 History (Jardiance) ezetimibe 10 mg tablet 10 mg PO QAM 07/26/23 12/15/23 History ferrous gluconate 324 mg (37.5 mg 324 mg PO QAM 07/26/23 12/15/23 History iron) tablet magnesium oxide 400 mg PO QAM 07/26/23 12/15/23 History isosorbide mononitrate 120 mg 120 mg PO QAM #90 tabs 08/10/23 12/15/23 Rx tablet,extended release 24 hr allopurinol 100 mg tablet 100 mg PO QAM #90 tabs 08/24/23 12/15/23 Rx allopurinol 300 mg tablet 600 mg (2 x 300 mg) PO QAM #180 08/24/23 12/15/23 Rx tabs apixaban 5 mg tablet (Eliquis) 5 mg PO BID #180 tabs 08/24/23 12/15/23 Rx furosemide 40 mg tablet 40 mg PO QAM #90 tabs 08/24/23 12/15/23 Rx sacubitril 24 mg-valsartan 26 mg 1 tab PO BID #60 tabs 08/27/23 12/15/23 Rx tablet (Entresto) doxepin 6 mg tablet 6 mg PO HS #60 tabs 09/13/23 12/15/23 Rx ranolazine 1,000 mg 1,000 mg PO BID #180 tabs 09/21/23 12/15/23 Rx tablet,extended release,12 hr acetaminophen 650 mg 1,300 mg (2 x 650 mg) PO Q12H #120 09/30/23 12/15/23 Rx tablet,extended release (Tylenol tabs Arthritis Pain) atorvastatin 80 mg tablet 80 mg PO HS #90 tabs 10/06/23 12/15/23 Rx pantoprazole 40 mg tablet,delayed 40 mg PO BID #180 tabs 10/21/23 12/15/23 Rx release clopidogrel 75 mg tablet 75 mg PO QAM #90 tabs 11/03/23 12/15/23 Rx ibuprofen 200 mg tablet 600 mg PO Q6H PRN Pain 12/01/23 12/15/23 History flash glucose sensor (FreeStyle #2 ea 12/09/23 Rx Sandy 2 Sensor kit) insulin glargine 100 unit/mL (3 50 - 55 unit (0.5 - 0.55 mL) 12/13/23 12/15/23 Rx mL) subcutaneous pen (Lantus subcut PM #45 mL Solostar U-100 Insulin) oxycodone-acetaminophen 5 mg-325 1 tab PO Q4H PRN Pain 12/15/23 12/15/23 History mg tablet Patient History Medical History Hx of upper gastrointestinal hemorrhage (05/2023) Presence of combination internal cardiac defibrillator (ICD) and pacemaker [employer] pulse generator implanted 05/2021, guided RV ICD lead, Medtronic atrial pacing lead, [employer] coronary sinus lead Peripheral arterial disease Peptic ulcer disease Ischemic cardiomyopathy 03/2023 EF 24% Inflammatory arthritis Hypercholesterolemia Hypertension Hx of gout Gangrene of left foot seen by Fang Cruz at [facility]. [facility] Ankle specialists today - started on an abx, pt. unsure of name, has not yet picked up from pharmacy - she advised pt. that she feels all toes on left foot need to be removed and is sending info to Dr. Morgan CAD (coronary artery disease) s/p CABG x 4 in 2010, 2 stents in 2003 Intermittent claudication History of anemia (05/2023) due to blood loss HFrEF (heart failure with reduced ejection fraction) Diabetic infection of left foot seen by Fang Cruz at [facility]. [facility] Ank[facility] specialists today - started on an abx, pt. unsure of name, has not yet picked up from pharmacy - she advised pt. that she feels all toes on left foot need to be removed and is sending info to Dr. Morgan Diabetes mellitus Bilateral carotid bruits ASCVD (arteriosclerotic cardiovascular disease) Arthritis History of DVT of lower extremity (04/2023) right leg -unknown cause Adenomatous polyps hx Surgical History Hx of colonoscopy with polypectomy History of esophagogastroduodenoscopy (EGD) S/P insertion of iliac artery stent x2; 05/2011- right illiac- x stent; 2018, [facility], x1 stent History of implantable cardioverter-defibrillator (ICD) insertion w/pacemaker; 05/2021, [facility]; f[facility]u [facility] Hx of vascular surgery (04/2023) 04/2023 "replaced the entire artery in lt leg with an artificial one", [facility] [place] Status post angioplasty with stent (07/27/22) [facility] x5 stents lt leg, w/ dr. 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, 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; done @ [facility] Family History Father , age 72 Diabetes Colonic polyp Hypertension Kidney disease Heart disease Dyslipidemia Coronary heart disease, Onset Age: 63 CABG Mother Lung disease Lung cancer, Onset Age: 70 small cell 71 Denies family history of Ovarian cancer Prostate cancer Deep vein thrombosis Alzheimer disease Dementia Depression Myocardial infarction Breast cancer Colorectal cancer Pulmonary embolism Stroke Asthma Social History Smoking Status: Former smoker Tobacco Type: Cigarettes Age Started Using Tobacco: 17; Cigarettes Per Day: quit 04/2023 (1/2 ppd); Second Hand Exposure: No; Do You Dip or Chew Tobacco: No; Tobacco Cessation Education Requested by Patient: No Hx Alcohol Use: Yes Alcohol type: beer Alcohol Intake Frequency: Monthly or Less Alcohol Intake Frequency Comment: 4-5 beers monthly Hx Substance Use: No Preferred Language: Pashto Communication Ability: Effective Visual Impairment: Limited Hearing Ability: Use of Hearing Aid [employer] Required: No Beliefs That Will Affect Care: None marital status: Current Living Situation: Spouse Current Living Situation Comment: Demetrice and daughter current occupational status: disabled How many Children do You have: 4 Other Information That Helps Us Care for You: No Feels Safe at Home: Yes Safety Concerns: Feels Safe At This Time Childhood Exposure to Second-Hand Smoke: Yes Diet: regular caffeine: Yes during the past year weight has: remained stable Dental Care, Regularly: No Physical Activity Frequency: Does not Exercise Seatbelt Use: always Sunscreen Use: Yes Do you think of yourself as: straight/heterosexual Gender Identity: Male Assistive Devices: Cane, Denture - Lower, Glasses and Hearing Aid - Bilateral Review of Systems Review of Systems: All systems reviewed & are unremarkable except as noted in Subjective Physical Exam Constitutional: WD/WN, vitals as above Neck: trachea midline, no thyromegaly Respiratory: normal respiratory effort, lungs clear to auscultation Cardiovascular: RRR, no murmur, no edema Gastrointestinal (Abdomen): normal bowel sounds, soft, nontender, no hepatosplenomegaly Musculoskeletal: Status post left transmetatarsal amputation which is dressed. There is a dopplerable DP pulse Skin: no rashes, warm and dry Neurologic: Nonfocal exam Lymphatic: no cervical lymphadenopathy Results & Data Results & Data Vital Signs (Past 12 Hours) Vital Signs Temp Pulse Pulse Resp BP BP Pulse Ox 12/15/23 14:50 82 22 148/72 H 97 12/15/23 14:43 36.3 C L 87 18 155/75 H 98 12/15/23 06:45 37.7 C H 69 20 143/71 H 145/62 H 95 O2 Del Method O2 Flow Rate 12/15/23 14:50 Oxymask 6 12/15/23 14:43 Oxymask 6 12/15/23 06:45 Room Air Critical Care Results & Data Vital Signs (Past 12 Hours) Vital Signs Temp Pulse Pulse Resp BP BP Pulse Ox 12/15/23 15:00 80 20 146/69 H 97 12/15/23 14:50 82 22 148/72 H 97 12/15/23 14:43 36.3 C L 87 18 155/75 H 98 12/15/23 06:45 37.7 C H 69 20 143/71 H 145/62 H 95 O2 Del Method O2 Flow Rate 12/15/23 15:00 Oxymask 4 12/15/23 14:50 Oxymask 6 12/15/23 14:43 Oxymask 6 12/15/23 06:45 Room Air Lab & Micro Results (Past 24 Hours) RBC 3.60 M/uL (4.70-6.10) L 12/15/23 WBC 10.39 K/ul (4.8-10.8) 12/15/23 Hgb 11.0 g/dl (14.0-18.0) L 12/15/23 Hct 33.2 % (42.0-52.0) L 12/15/23 MCV 92.2 fL (80.0-100.0) 12/15/23 MCH 30.6 pg (25.0-34.0) 12/15/23 MCHC 33.1 g/dL (32.0-36.0) 12/15/23 RDW Standard Deviation 51.6 fL (36.4-46.3) H 12/15/23 RDW Coefficient of Variation 15.2 % (11.5-14.5) H 12/15/23 Plt Count 197 K/uL (130-400) 12/15/23 MPV 9.5 fL (9.4-12.4) 12/15/23 Na Pending 12/15/23 K Pending 12/15/23 Cl Pending 12/15/23 CO2 Pending 12/15/23 Anion Gap Pending 12/15/23 BUN Pending 12/15/23 Creatinine Pending 12/15/23 Estimated GFR ( Amer) Pending 12/15/23 Estimated GFR (Non-Af Amer) Pending 12/15/23 BUN/Creatinine Ratio Pending 12/15/23 Glu Pending 12/15/23 Ca Pending 12/15/23 Calcium Level Pending 12/15/23 14:45 Prothromb Time International Ratio 1.0 (0.9-1.1) 12/15/23 06:4 2 I & O Totals 24 Hours 12/14/23 12/15/23 12/16/23 06:59 06:59 06:59 Intake Total 2100 / 2100 Output Total 1850 / 1850 Balance 250 / 250 Cumulative 11/11/23 14:55 thru 12/15/23 14:43 Intake Total 2100 Output Total 1850 Balance 250 RT Ventilator Mngmt (Last Documented) Ventilator Ordered Settings Respiratory Rate 20 12/15/23 15:00 Ventilator - PT Measurements Respiratory Rate 20 Coding Level of Care Code 70353 IN/OBS CONSULT LVL 4,60M Diagnoses Blood loss anemia D50.0 Peripheral arterial disease I73.9 Type 2 diabetes mellitus without complication, without long-term current use of insulin E11.9 Diabetes mellitus type: type 2 Diabetes mellitus group home insulin use: without long term care administrator use Diabetes mellitus complication status: without complication Ischemic cardiomyopathy I25.5 (3) Diabetes mellitus Diabetes mellitus type: type 2 Diabetes mellitus group home insulin use: without long term care administrator use Diabetes mellitus complication status: without complication Qualified Code(s): E11.9 - Type 2 diabetes mellitus without complications
[2023-12-15 15:29] LABS: BUN Creatinine Ratio 25.9 (10-20); Calcium 8.3 mg/dl (8.6-10.3); Creatinine Clr Calc Pharmacy 75.5 ml/min; Est GFR (African American) 78.4 ml/min; Est GFR (Non-African American) 67.6 ml/min; Potassium 5.4 mmol/L (3.5-5.1)
[2023-12-15 15:42] LABS: Basophils # (auto) 0.02 K/uL (0.00-0.20); Basophils % (auto) 0.2 %; Echinocytes 1+; Immature Granulocytes # (auto) 0.06 K/uL (0.01-0.20); Immature Granulocytes % (auto) 0.6 %; Lymphocytes # (auto) 0.49 K/uL (1.20-3.40); Lymphocytes % (auto) 4.7 %; Monocytes % (auto) 2.9 %; Neutrophils # (auto) 9.52 K/uL (1.40-6.50); Neutrophils % (auto) 91.6 %; Polychromasia 1+
--- NOTE | 2023-12-15 15:51 | Anesthesiology Progress Note ---
Date of Service December 15, 2023 Anesthesia Post Procedure Vital Signs Vital Signs: Temp Pulse Pulse Resp BP BP Pulse Ox 12/15/23 15:45 80 20 138/66 95 12/15/23 15:30 81 14 132/60 95 12/15/23 15:20 36.5 C 80 20 144/57 H 95 12/15/23 15:10 82 22 146/72 H 96 12/15/23 15:00 80 20 146/69 H 97 12/15/23 14:50 82 22 148/72 H 97 12/15/23 14:43 36.3 C L 87 18 155/75 H 98 12/15/23 06:45 37.7 C H 69 20 143/71 H 145/62 H 95 O2 Del Method O2 Flow Rate 12/15/23 15:45 Nasal Cannula 2 12/15/23 15:30 Nasal Cannula 2 12/15/23 15:20 Nasal Cannula 2 12/15/23 15:10 Oxymask 4 12/15/23 15:00 Oxymask 4 12/15/23 14:50 Oxymask 6 12/15/23 14:43 Oxymask 6 12/15/23 06:45 Room Air Pain Intensity Left Foot: Pain Intensity: 8 Transfer of Care Handoff Completed per policy Notes Mental Status: alert / awake / arousable Patient Amnestic to Procedure: Yes Nausea / Vomiting: adequately controlled Pain: adequately controlled Airway Patency, RR, SpO2: stable & adequate BP & HR: stable & adequate Hydration State: stable & adequate Anesthetic Complications: no major complications apparent and Pt Satisfied with anesthetic care
[2023-12-15] MEDS ORDERED: LAVAGE SOLUTION 4000ML PO SCH (16:09)
[2023-12-15] MEDS ORDERED: NITROGLYCERIN SL 0.4 MG/TAB TAB SL PRN (16:09)
[2023-12-15] MEDS ORDERED: PROMETHAZINE HCL 12.5 MG in SODIUM CHLORIDE 0.9% 50 ML IV PRN (16:09)
[2023-12-15] MEDS ORDERED: PHARMACY GLYCEMIC MGMT CONSULT PRN (16:09)
[2023-12-15] MEDS: ceFAZolin 2000MG 2,000 MG/15 ML SYR IV SCH (17:15)
[2023-12-15] MEDS: INSULIN ASPART PER UNIT CHARGE SC SCH (17:15)
[2023-12-15] MEDS: LACTATED RINGER'S 1,000 ML IV SCH (17:15)
[2023-12-15] MEDS: ACETAMINOPHEN 500 MG TAB PO SCH (17:16)
[2023-12-15] MEDS: THROMBIN FOR SOLN 20000 UNIT KIT ONE (20:11)
[2023-12-15] MEDS: RANOLAZINE 500 MG ER TAB PO SCH (20:29)
[2023-12-15] MEDS: METOPROLOL SUCC 25MG EXT REL TAB PO SCH (20:29)
[2023-12-15] MEDS: VALSARTAN/SACUBITRIL 26/24MG TAB PO SCH (20:29)
[2023-12-15] MEDS: ATORVASTATIN 40 MG TAB PO SCH (20:29)
[2023-12-15] MEDS: PANTOprazole 40 MG TAB PO SCH (20:30)
[2023-12-15] MEDS: LANTUS PER UNIT CHARGE SC SCH (21:00)
[2023-12-15] MEDS: traZODone HCL 50 MG TAB PO ONE (21:01)
[2023-12-15 21:08] LABS: Hematocrit (blood only) 29.2 % (42.0-52.0); Hemoglobin 9.8 g/dl (14.0-18.0)
[2023-12-15] MEDS: oxyCODONE/ACETAMINOPHEN 5mg/325mg TAB PO PRN (22:18)
[2023-12-16] MEDS: MoRPHine SULFATE 4 MG/ML 1 ML CARP\\VIAL IV PRN (00:30)
[2023-12-16] MEDS: CALCIUM CARBONATE 500 MG CHEWABLE TAB PO PRN (03:44)
[2023-12-16 04:57] LABS: Basophils # (auto) 0.01 K/uL (0.00-0.20); Basophils % (auto) 0.1 %; Eosinophils # (auto) 0.01 K/uL (0.00-0.50); Eosinophils % (auto) 0.1 %; Hematocrit (blood only) 25.6 % (42.0-52.0); Hemoglobin 8.9 g/dl (14.0-18.0); Immature Granulocytes # (auto) 0.04 K/uL (0.01-0.20); Immature Granulocytes % (auto) 0.4 %; Lymphocytes # (auto) 1.09 K/uL (1.20-3.40); Lymphocytes % (auto) 9.8 %; Mean Corpuscular Hemoglobin 31.1 pg (25.0-34.0); Mean Corpuscular Hgb Conc 34.8 g/dL (32.0-36.0); Mean Corpuscular Volume 89.5 fL (80.0-100.0); Mean Platelet Volume 9.9 fL (9.4-12.4); Monocytes # (auto) 1.17 K/uL (0.11-0.59); Monocytes % (auto) 10.5 %; Neutrophils # (auto) 8.83 K/uL (1.40-6.50); Neutrophils % (auto) 79.1 %; Platelet Count 180 K/uL (130-400); RDW Coefficient of Variation 15.1 % (11.5-14.5); RDW Standard Deviation 50.1 fL (36.4-46.3); Red Blood Count 2.86 M/uL (4.70-6.10); White Blood Count 11.15 K/ul (4.8-10.8)
[2023-12-16 05:12] LABS: BUN Creatinine Ratio 30.3 (10-20); Creatinine Clr Calc Pharmacy 77.6 ml/min; Est GFR (Non-African American) 69.9 ml/min; Potassium 4.5 mmol/L (3.5-5.1)
[2023-12-16] MEDS: FERROUS GLUCONATE 324 MG TAB PO SCH (08:19)
[2023-12-16] MEDS: CLOPIDOGREL BISULFATE 75 MG TAB PO SCH (08:19)
[2023-12-16] MEDS: EZETIMIBE 10 MG TAB PO SCH (08:19)
[2023-12-16] MEDS: allopurinoL 100 MG TAB PO SCH (08:19)
[2023-12-16] MEDS: MAGNESIUM OXIDE 400 MG TAB PO SCH (08:19)
[2023-12-16] MEDS: allopurinoL 300 MG TAB PO SCH (08:20)
[2023-12-16] MEDS: FUROSEMIDE 40 MG TAB PO SCH (08:20)
--- NOTE | 2023-12-16 08:38 | Critical Care Progress Note ---
Date of Service December 16, 2023 Assessment & Plan (1) Blood loss anemia: (2) Peripheral arterial disease: (3) Diabetes mellitus: (4) Ischemic cardiomyopathy: Plan Impression: 68-year-old male with ischemic cardiomyopathy diabetes and nonhealing ulcer of the left foot status post limb salvage revascularization today. Cadaveric vein was used for femoral to peroneal bypass graft. Recommendations: 1. Peripheral vascular disease: Status post bypass graft. Continue with basia carmichael as directed by vascular surgery. Patient is doing well and without bleeding, significant discomfort, or loss of pulses. 2. Heart failure with reduced ejection fraction: Euvolemic currently. Continue outpatient medications as tolerated. 3. Postoperative blood loss: Weight follow-up CBC. May require additional transfusion of packed cells. Defer anticoagulation to vascular surgery. Await postoperative labs 4. Diabetes: Continue outpatient medications. May need to cover with insulin therapy 5. Continue oxygen post operatively and titrate to keep oxygen saturations at or above 90%. Thank you for allowing us to participate in care of this patient. Patient is stable for downgrade from the ICU at this point. Admission and Anticipated Discharge Date Admission Date: December 15, 2023 Subjective Patient seen and evaluated at bedside. He is doing very well. He is out of bed to chair at this time. Patient is mentating well and is without significant discomfort. Physical Exam Physical Exam: VITAL SIGNS - Vital signs and nursing notes were reviewed. GENERAL - 68-year-old male appearing his stated age who is in no acute distress. Communicates well with provider and answers questions appropriately. SKIN -LEFT lower extremity dressings clean, dry, and intact. LUNGS - Chest wall symmetric without accessory muscle use, intercostals retractions, or central cyanosis. Normal vesicular breath sounds CTA B/L. No wheezes, rales, or rhonchi appreciated. CARDIAC - RRR with S1/S2. No murmur, rubs, or gallops appreciated. ABDOMEN - Abdominal contour flat without pulsations or visible masses. BS normoactive all four quadrants. No tenderness, palpable masses, hepatosplenomegaly, or ascites noted. EXTREMITIES - No clubbing or peripheral cyanosis. Slight edema noted to the lateral aspect of the LEFT lower extremity. Dressings in place. Distal pulses dopplerable. NEUROLOGIC - Cranial nerves II through XII grossly intact. Sensory intact to light touch throughout. PSYCH - A&Ox3 and cooperates fully with examiner. Pt is very pleasant and interacts well with examiner. Results & Data Results & Data Vital Signs (Past 12 Hours) Vital Signs Temp Pulse Resp BP Pulse Ox O2 Del Method 12/16/23 07:08 66 12/16/23 04:00 36.8 C 76 18 92 Room Air 12/16/23 02:00 70 16 118/52 L 93 Room Air 12/16/23 00:05 70 20 119/51 L 98 Room Air 12/16/23 00:00 72 12/15/23 22:05 74 18 102/58 L 98 Room Air Coding Level of Care Code 42799 SUB INP/OBS CARE 06/10MIN Diagnoses Blood loss anemia D50.0 Peripheral arterial disease I73.9 Type 2 diabetes mellitus without complication, without long-term current use of insulin E11.9 Diabetes mellitus complication status: without complication Diabetes mellitus stock preparer insulin use: without stock preparer use Diabetes mellitus type: type 2 Ischemic cardiomyopathy I25.5 (3) Diabetes mellitus Diabetes mellitus complication status: without complication Diabetes mellitus fdc insulin use: without stock preparer use Diabetes mellitus type: type 2 Qualified Code(s): E11.9 - Type 2 diabetes mellitus without complications
[2023-12-16] MEDS ORDERED: EMPAGLIFLOZIN 25 MG TAB PO SCH (09:00)
[2023-12-16] MEDS: ISOSORBIDE MONO EXTENDED REL 60 MG TABCR PO SCH (09:52)
[2023-12-16] MEDS ORDERED: SODIUM CHLORIDE 0.9% 250 ML IV PRN (13:28)
--- NOTE | 2023-12-16 13:36 | Surgery Progress Note ---
Date of Service December 16, 2023 Assessment & Plan (1) Peripheral arterial disease: Plan: Will transfer him to the floor and continue his ambulation. Most likely will be discharged tomorrow. (2) Acute blood loss as cause of postoperative anemia: Plan: His blood loss secondary to operative blood loss. He will be transfused 1 more unit. Following his hemoglobins in the a.m. Admission and Anticipated Discharge Date Admission Date: December 15, 2023 Subjective Patient is doing well without complaints except for discomfort in his left foot. He was up ambulating in the room without difficulty. He denies any incisional pain. Physical Exam Constitutional: WD/WN, vitals as above Respiratory: normal respiratory effort, lungs clear to auscultation Cardiovascular: RRR, no murmur, no edema Vessels: posterior tibial pulses present (Weak posterior tibial Doppler on the left.) Gastrointestinal (Abdomen): Inspection/Auscultation: abdomen normal to inspection Skin: + incision (Dressings are all dry and in tact) Neurologic: CN's II-XI intact bilaterally and moves all extremities Psychiatric: Orientation: alert and oriented x 3 Results & Data Vital Signs (Past 12 Hours) Vital Signs Temp Pulse Resp BP Pulse Ox O2 Del Method 12/16/23 13:20 69 103/51 L 97 Room Air 12/16/23 12:22 89 19 99/38 L Room Air 12/16/23 10:52 68 17 112/67 97 Room Air 12/16/23 09:47 73 17 118/44 L 95 Room Air 12/16/23 08:21 99/46 L 12/16/23 08:21 66 99/46 L 91 Room Air 12/16/23 07:08 66 12/16/23 04:00 36.8 C 76 18 92 Room Air 12/16/23 02:00 70 16 118/52 L 93 Room Air
--- NOTE | 2023-12-16 13:46 | Pharmacy Report ---
Pharmacy Glycemic Short Note 2 - Date of Service December 16, 2023 - Glycemic Short BSG Results (Last 24 hours): 12/15/23 12/15/23 12/15/23 14:44 14:45 15:17 Glucose 273 H POC Glucose 259 H 295 H 12/15/23 12/15/23 12/15/23 15:42 16:14 20:21 Glucose POC Glucose 304 H* 266 H 229 H 12/16/23 12/16/23 12/16/23 04:11 07:26 10:52 Glucose 130 H POC Glucose 149 H 164 H OUTPATIENT ANTIDIABETIC REGIMEN: * Lantus 50-55 units Q PM * Jardiance 25mg PO QAM * A1c = 8% 12/12/23 ASSESSMENT: * Type 2 diabetic admitted for limb revascularization surgery * POD # 1 * BSGs elevated yesterday, likely due to surgical stressors and IV dexamethasone given anel-op * BSGs much improved today * Fasting BSG 130 this AM w/ 50 units Lantus on board and after receipt of 7 units correctional insulin overnight * Plan to continue basal insulin at bedtime, however will reduce outpt dose by 20% as pt is now receiving prandial insulin * Will lessen rapid acting insulin doses given favorable trend in BSGs and dissipating effects of steroid PLAN FOR INPATIENT GLYCEMIC CONTROL: * Hold outpatient oral diabetes medications (Jardiance) * Basal insulin * Lantus 40 units SQ Q HS * Bolus insulin * NovoLog per scale ACHS or Q6hrs while NPO * Goal Range: Low 140 mg/dL - High 180 mg/dL * Correction Factor: 20 mg/dL/unit * Nutritional / Prandial insulin per carb ratio of 1 unit per 8 grams CHO consumed
[2023-12-16] MEDS: oxyCODONE HCL IR 5 MG TAB (IMMEDIATE RELEASE) PO PRN (18:33)
[2023-12-16] MEDS: IBUPROFEN 600 MG TAB PO PRN (20:04)
[2023-12-16 20:39] VITALS: TEMP 99.3
[2023-12-16] MEDS: APIXABAN 5 MG TABLET PO SCH (21:33)
[2023-12-16] MEDS: LANTUS PER UNIT CHARGE SC SCH (21:33)
[2023-12-16] MEDS: HYDROmorphone INJ 0.5 MG/0.5 ML SYR IV PRN (22:11)
[2023-12-17 06:32] LABS: Hematocrit (blood only) 23.9 % (42.0-52.0); Hemoglobin 8.2 g/dl (14.0-18.0)
[2023-12-17 07:11] VITALS: RESP 16; O2SAT 95
[2023-12-17 08:12] VITALS: BP 115/62; PULSE 72
--- NOTE | 2023-12-17 13:13 | Surgery Progress Note ---
Date of Service December 17, 2023 Assessment & Plan (1) Peripheral arterial disease: Plan: Doing well Will d/c today He will follow up with podiatry next week and vasc the week after (2) Acute blood loss as cause of postoperative anemia: Plan: stable Admission and Anticipated Discharge Date Admission Date: December 15, 2023 Subjective Patient only complains of pain in his amp site. Was up and ambulating today. On oral pain meds. Physical Exam Constitutional: WD/WN, vitals as above Respiratory: normal respiratory effort, lungs clear to auscultation Cardiovascular: RRR, no murmur, no edema Vessels: posterior tibial pulses present (Weak posterior tibial Doppler on the left.) Positive doppler signal in the bypass Foot warm, Gastrointestinal (Abdomen): Inspection/Auscultation: abdomen normal to inspection Musculoskeletal: Hip: + skin erythema (improved) and + surgical incision (dry and clean) amp site with discoloration of the plantar flap Skin: + incision (Dressings are all dry and in tact) Neurologic: CN's II-XI intact bilaterally and moves all extremities Psychiatric: Orientation: alert and oriented x 3 Results & Data Vital Signs (Past 12 Hours) Vital Signs Temp Pulse Resp BP Pulse Ox O2 Del Method 12/17/23 08:12 72 115/62 12/17/23 07:10 37.4 C 60 16 100/48 L 95 Room Air
--- NOTE | 2023-12-17 13:19 | Discharge Summary ---
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 He is getting some discomfort in the left foot as he had prior to his femoral to posterior tibial prosthetic bypass which has occluded. He underwent arteriography recently which showed a patent peroneal artery from its origin down to the ankle with collateral flow to the foot. He recently underwent a TMA for the non healing wound. Admission Exam Per Admitting Provider On exam he is awake alert and oriented x 3. His blood pressure 92/50. His radials are +2 bilaterally. Femorals are +2. I cannot appreciate pedal pulse in the left lower extremity. The foot is red and distally in the toes. There is a recent transmetatarsal amputation site of the left foot . Lungs are clear. Cor has a RRR. abdominal exam is benign. Principal Diagnosis Left lower extremity ischemia with pre gangrene Discharge Exam On exam he is awake alert and oriented x 3. His blood pressure 92/50. His radials are +2 bilaterally. Femorals are +2. I cannot appreciate pedal pulse in the left lower extremity. The foot is red and distally in the toes. There is a recent transmetatarsal amputation site of the left foot . Lungs are clear. Cor has a RRR. abdominal exam is benign. Constitutional WD/WN, vitals as above Respiratory normal respiratory effort, lungs clear to auscultation Cardiovascular RRR, no murmur, no edema Vessels: posterior tibial pulses present (Weak posterior tibial Doppler on the left.) Gastrointestinal (Abdomen) Inspection/Auscultation: abdomen normal to inspection Musculoskeletal Hip: + skin erythema (improved) and + surgical incision (dry and clean) Skin + incision (Dressings are all dry and intact) Neurologic CN's II-XI intact bilaterally and moves all extremities Psychiatric Orientation: alert and oriented x 3 Discharge Data Allergies Allergy/AdvReac Type Severity Reaction Status Date / Time No Known Allergies Allergy Verified 12/15/23 06:40 Consultations 12/15/23 16:09 Consult Business Communications Instructor Routine Procedures Performed Operation Date: 12/15/23 08:00 Actual Procedures p Left Femoral to Peroneal Cadaver Vein Bypass, Patch angioplasty to left femoral artery(Left) - Hernan Layne MD Hospital Course (1) Peripheral arterial disease: Doing well Will d/c today He will follow up with podiatry next week and vasc the week after (2) Acute blood loss as cause of postoperative anemia: stable Total Time Total Time Spent Total Time Spent (In Minutes): 0 Discharge Plan Discharge Items Patient Disposition: Home - Self-Care Reason For Visit: Artherosclerosis [place] arteries of extremities Discharge Diagnosis: Left lower extremity ischemia with pre gangrene Activity: Per Instructions section Non-emergency contact: Surgeon Call non-emergency contact if: your temperature is above 101.5, your wound has increased redness, your wound has increased drainage and your wound pain has increased Follow-up/Referrals: Domingo Valentino MD [Primary Care Provider] - Hernan Layne MD [Physician] - Nga Cruz DPM [Surgeon] - (next week) Diet: Carb Consistent or DM2 and Heart Healthy Addtl Attending Provider Instructions: ACTIVITY RECOMMENDATIONS: Ambulate as much as possible. Keep leg elevated when not walking. Use surgical boot when out of bed SPECIAL CARE INSTRUCTIONS: Call your doctor if: * Temperature above 101 degrees * Pain not relieved by pain medicine ordered * There is increased drainage or redness from any incision * You have any unanswered questions or concerns. Call [phone] to schedule a follow up appointment if one not already scheduled. Pending Studies at Discharge: No Stand-Alone Forms: My [facility] [employer], Smoking Cessation Medications and DC Order Prescriptions: New oxycodone 5 mg Tablet 5 mg PO Q4 PRN (Reason: pain) Qty: 30 0RF Continued (DME) pen needle, diabetic [BD Ultra-Fine Short Pen Needle] 31 gauge x 5/16" needle See Rx Instructions .ROUTE .MEDSUPPLY Qty: 100 3RF Rx Instructions: As [id number] times per day for insulin administration peg 3350-electrolytes [Golytely] 236-22.74-6.74 -5.86 gram recon soln 240 ml PO .COMPLEX Qty: 4000 0RF Rx Instructions: 240 mL PO take as directed per split dose instructions isosorbide mononitrate 120 mg tablet extended release 24 hr 120 mg PO QAM Qty: 90 3RF furosemide 40 mg tablet 40 mg PO QAM Qty: 90 1RF Eliquis 5 mg tablet 5 mg PO BID Qty: 180 1RF allopurinol 100 mg tablet 100 mg PO QAM Qty: 90 1RF Rx Instructions: Take 600mg w/ 100mg by mouth once in the morning for a total dose of 700mg in the morning allopurinol 300 mg tablet 600 mg PO QAM Qty: 180 1RF Rx Instructions: Take 600mg w/ 100mg by mouth once in the morning for a total dose of 700mg in the morning ranolazine 1,000 mg tablet extended release 12 hr 1,000 mg PO BID Qty: 180 3RF Rx Instructions: TAKE 1 TABLET BY MOUTH TWICE A DAY acetaminophen [Tylenol Arthritis Pain] 650 mg tablet extended release 1,300 mg PO Q12H Qty: 120 2RF atorvastatin 80 mg tablet 80 mg PO HS Qty: 90 1RF pantoprazole 40 mg tablet,delayed release (DR/EC) 40 mg PO BID Qty: 180 1RF clopidogrel 75 mg tablet 75 mg PO QAM Qty: 90 0RF (DME) FreeStyle Sandy 2 Sensor Kit See Rx Instructions .Route Qty: 2 5RF Rx Instructions: As directed to check blood sugars at least once every 8 hours; change every 14 days insulin glargine [Lantus Solostar U-100 Insulin] 100 unit/mL (3 mL) insulin pen 50 - 55 unit SUBCUT PM Qty: 45 0RF nitroglycerin 0.4 mg tablet, sublingual 0.4 mg sublingual Q5M PRN (Reason: Pain) Qty: 14 5RF Patient Comments: has never used Rx Instructions: do not exceed 3 doses per episode doxepin 6 mg tablet 6 mg PO HS Qty: 60 2RF Entresto 24-26 mg tablet 1 tab PO BID Qty: 60 2RF ezetimibe 10 mg tablet 10 mg PO QAM ferrous gluconate 324 mg (37.5 mg iron) tablet 324 mg PO QAM Jardiance 25 mg tablet 25 mg PO QAM magnesium oxide 400 mg magnesium tablet 400 mg PO QAM metoprolol succinate 25 mg tablet extended release 24 hr 25 mg PO HS ibuprofen 200 mg Tablet 600 mg PO Q6H PRN (Reason: Pain) Discontinued oxycodone-acetaminophen 5-325 mg Tablet 1 tab PO Q4H PRN (Reason: Pain) Discharge Orders: Discharge Order (Routine); Ordered 12/17/23 Ordered By: Hernan Layne Admission Data Admit Date/Time: 12/15/23 07:34 Attending Provider: Hernan Layne Admit Provider: Hernan Layne Primary Care Provider: Domingo Valentino. Other Providers: Mathew Clifton; Bull South; Gustavo Chávez; Jaziel Valiente; Antony Del Castillo; Nafisa Jaime; Cole Gonzalez; Laquita Kay; Miriam Martinez; Alfredo Sainz; Demetri Alexander; Mary Stevenson
--- NOTE | 2023-12-24 09:41 | Operative Report ---
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 I identified the patient and participated in the time-out.: Yes Procedure Operation Date: 12/15/23 08:00 Actual Procedures p Left Femoral to Peroneal Cadaver Vein Bypass, Patch angioplasty to left femoral artery(Left) - Hernan Layne MD Surgeon Hernan Layne MD Transmission Assembler none Estimated Blood Loss 1,500 Findings Consistent with Post-Op Diagnosis Specimens none Anesthesia Type General Complications none Disposition Accompanied Patient To Recovery: No Disposition: Recovery Room Indications This is a 68-year-old gentleman who has severe peripheral vascular disease with left superficial femoral artery popliteal artery occlusion. He has had failed bypasses in the past. He underwent a recent TMA for gangrene of the toes. He is now admitted for revascularization of left lower extremity using a cadaver vein. I have discussed the risks options and benefits of the procedure with the patient. The patient understands the risks options and benefits and agrees to the procedure. Description of Procedure The patient was taken the operative room placed spine position. After general anesthesia was accomplished the left lower extremities prepped and draped in a sterile manner. A timeout was performed and the patient was identified. A longitudinal incision was made in the medial calf coursing from the upper third down to the distal third of the leg. This was carried down to the peroneal artery. There was a lot of venous congestion and scar tissue present. There is hypertension within the venous system which caused the a significant amount of bleeding. These veins were controlled with suture ligature and repair. We finally were able to get the peroneal artery dissected free. Once this was isolated we then made a groin incision. This was carried out where the common femoral artery was identified. The common femoral artery and the ocasio of the old bypass graft was isolated. The wound was actually patent. At that point patient was heparinized. After adequate heparinization was accomplished the common femoral artery was clamped proximal distally. The ocasio of the old graft was opened longitudinally. The cadaver vein was brought to the operative field. It was beveled the appropriate fashion and an end to side anastomosis was accomplished using 5-0 Prolene suture. After this was completed the clamp was removed from the common femoral artery and replaced and distal end of the graft. Excellent flow was seen through the anastomosis. Good flow seen was seen distally through the graft. The graft was then marked. A tunneler was passed from the lower incision up to the groin incision. The vein was then sutured to the tunneler and brought down through the tunnel. The tunneler was then removed. The peroneal artery was clamped proximal distally. A longitudinal arteriotomy was then made. There is a large amount of plaque present. This had to be endarterectomized. We decided to close the peroneal with a bovine patch. This was sewn in place with 6-0 Prolene suture. Once this was then placed a longitudinal arteriotomy was made over the patch and the cadaver vein was cut the appropriate length and beveled and an end to side anastomosis was accomplished between the cadaver vein and the bovine patch angioplasty using a 6-0 Prolene suture in the usual vascular fashion. Prior to completing this c losure backbleeding and forward bleeding was allowed to occur. The final few sutures were then placed and securely tied. Clamps were removed. There was a decent Doppler signal heard beyond the anastomosis. We were able to find a posterior tibial Doppler signal just below the ankle. Adequate was stasis was then obtained of both wounds. After this was accomplished the lower Wound was closed using a 3-0 Vicryl suture and coral. The groin incision was then closed in usual fashion using running 2-0 Vicryl for the femoral sheath and 3-0 Vicryl for subcutaneous layer. Coral were used for the skin. Sterile dressings were applied to the wounds.The patient left the operation room in satisfactory condition and tolerated the procedure well. All needle and sponge counts were correct at the end of the procedure. I attest to the content of the Intraoperative Record and any orders documented therein. Any exceptions are noted below.
== END 2023-12-17 16:39 | disposition home or self-care (01) | DRG 253 ==
LOC: ASU 06:24 → 1E 07:34 → 3E 12-16 17:52

== ENCOUNTER 2024-01-05 21:50 | Inpatient (IN) ==
--- NOTE | 2024-01-05 22:57 | Emergency Department Note ---
Impression & Plan Acute confusion, Left leg pain, Non-ST elevation VA (NSTEMI), Postoperative wound infection, Cellulitis of left leg ED Provider Note HISTORY OF PRESENT ILLNESS: Patient is a 68-year-old male presenting with concern for worsening infection. Patient has a history of gangrene of the left lower extremity and is scheduled for a below the knee amputation next week. He states that over the last 2 to 3 days he has been having increasing pain in his left lower extremity and his previous surgical incisions seem to be discolored. Report that the wound has developed a foul-smelling odor to it per the . Patient denies any measured fevers at home but reports he has been having chills. He denies any nausea or vomiting. Reports has been feeling very rundown. at bedside reports that at nighttime the patient has been hallucinating and talking to people who are not there in the room. No recent antibiotic use. Patient reports that he has been taking oxycodone 10 mg tablets, with little relief in his pain. Patient reports that the pain has been ongoing for the last few days "since I got my surgery." ROS: as above PHYSICAL EXAM: Constitutional: Patient appears in no acute distress. HENT: Head: Normocephalic and atraumatic. Eyes: EOMI, PERRL Mouth/Throat: Mucous membranes moist. Neck: Trachea midline. Neck supple. Cardiovascular: Paced rhythm. No murmurs, rubs or gallops. Intact distal pulses. Pulmonary/Chest: No respiratory distress. Breath sounds clear and equal bilaterally. No wheezes or rales. Abdominal: Abdomen soft, no tenderness, rebound or guarding. Musculoskeletal: - LLE: Surgical incision along the left medial lower leg with coral in place. Incision is clean/dry/intact. No appreciable drainage from the incision. Patient has midfoot amputation of the left foot. He has black discoloration along the incision of the amputation. No appreciable drainage. No palpable crepitus. Unable to palpate DP or PT pulses. No appreciable DP or PT pulses via Doppler. Skin: Warm and dry. No rash, erythema, pallor or cyanosis Psychiatric: Appropriate mood and affect for situation. Neurological: Alert and keenly responsive. CN II-XII grossly intact, moving all extremities equally and fully. MDM: - Vitals signs showed hypertension and tachycardia. - History obtained via patient and patient's . History as above. - Chronic conditions affecting care: tobacco abuse; DM-2; HLD; ischemic cardiomyopathy; HTN; peripheral artery disease - Differential diagnoses include, but are not limited to: cellulitis; gangrene; necrotizing fasciitis - Order placed for continuous cardiac monitoring. At this time, monitor showed rate of 82 bpm with paced rhythm, per my interpretation. - External medical records reviewed. On review of patient's chart, he underwent a left leg femoral artery to peroneal artery cadaver vein bypass and bovine patch angioplasty of the peroneal artery on 12/15/2023. He was then seen in vascular surgery outpatient clinic on 12/23/2023 complaining of pain in the left leg. At that visit, his oxycodone was increased from 5 mg to 10 mg every 6 hours. - EKG interpreted by myself showed atrial paced rhythm. Rate 83 bpm. - Laboratory workup interpreted by myself showed leukocytosis (WBC 11.07); normal PT/INR; elevated BUN (31); hyperglycemia (glucose 218); normal lactate; normal procalcitonin; elevated troponin (40.7) - UA negative for infection - Viral respiratory panel negative - CXR negative for pneumonia, per my interpretation - CT head wo contrast negative for acute pathology, per radiology - CT tib-fib and CT foot wo contrast showed no subcutaneous air but notable skin thickening and subcutaneous edema concerning for cellulitis. - Review of patient's wound culture specimen dated 12/10/2023 was reviewed. Patient grew Pseudomonas aeruginosa, Bateroides fragilis and Finegoldia magna. - Blood cultures obtained - Patient given IV zosyn + IV clindamycin + IV daptomycin for antibiotic coverage - Patient's sepsis fluid volume resuscitation based on ideal body weight is 2263.50 mL. Patient given 1L NS, as patient has hx of ischemic cardiomyopathy and EF of 24%, so no further fluid resuscitation was utilized. - Discussion was had with caseworker about patient's case and need for admission - Initially discussed case with hospitalist, Dr. Bailey, for admission. However, he discussed case with the ICU who recommended transfer, as there is no vascular surgery coverage at our facility until next week. - Discussed case with vascular surgeon at [facility], Dr. Errol Enrique, at 02:52 AM on 01/06/2024. He states that there would be no need for emergent amputation of the patient's lower extremity unless the patient is showing findings concerning for necrotizing fasciitis. I did discuss the patient's laboratory workup and CT imaging findings that are concerning for cellulitis around the postoperative incision. He states that his recommendations would be for IV antibiotics and to continue with the elective amputation next week with the vascular surgeon who knows this patient, Dr. Layne. He states that there is nothing more to add from a vascular surgery perspective at this time, other than antibiotics. He recommends that if the patient does develop systemic symptoms such as fever, or findings concerning for sepsis, or any findings of necrotizing fasciitis, then [facility] vascular surgery can be re-consulted to discuss potential need for emergent vascular interventions. He states that he does have a note in the [facility] system dated 01/03/2024 from the physicians human resources executive assistant with vascular surgery that shows that the patient's bypass has been completely occluded and the plan is for elective amputation next week. Reports that as of this time, there is nothing to add from a vascular perspective in terms of emergent procedures. - Re-discussed case with hospitalist, Dr. Bailey, for admission. - Patient to be admitted to [facility] hospitalist service for further evaluation and management. ASSESSMENT AND PLAN: Diagnosis: acute confusion; acute left leg pain; NSTEMI; postoperative wound infection; left leg cellulitis Plan: admit Past Med/Surg History Problem List (Updated 01/06/24 @ 03:05 by Edwina Lazo MD) Cellulitis of left leg (Acute) Postoperative wound infection (Acute) Non-ST elevation VA (NSTEMI) (Acute) Left leg pain (Acute) Acute confusion (Acute) Acute blood loss as cause of postoperative anemia Encounter for pre-operative examination Skin tear of left upper arm without complication 09/13/23 Insomnia Wound of groin 06/16/23 Blood loss anemia 05/23/23 Upper GI bleed hx-05/2023 Superficial postoperative wound infection hx>lt big toe>removed 05/2023 Peptic ulcer disease Melena resolved Status post amputation of left great toe Right leg DVT Hypomagnesemia Gangrene of toe of left foot HFrEF (heart failure with reduced ejection fraction) ASCVD (arteriosclerotic cardiovascular disease) Presence of combination internal cardiac defibrillator (ICD) and pacemaker Preop cardiovascular exam Diabetic infection of left foot Infection of great toe (Acute) No pertinent past surgical history Urinary frequency 09/11/22 Prostatitis 09/11/22 Microscopic hematuria 09/01/22 Left wrist pain resolved Inflammatory arthritis Leg edema, left 08/07/22 Gout attack 08/07/22 Intractable nausea and vomiting 07/28/22 Biventricular ICD (implantable cardioverter-defibrillator) in place [employer] pulse generator implanted 05/2021, guided RV ICD lead, Medtronic atrial pacing lead, [facility] coronary sinus lead Bilateral carotid bruits Peripheral arterial disease Fatigue Lumbar back pain with radiculopathy affecting left lower extremity Claudication S/P coronary artery stent placement TANIA 09/19/2020 S/P insertion of iliac artery stent 05/2011 right iliac Pacemaker Hypertension Hearing difficulty History of gout Coronary artery disease Arthritis Ischemic cardiomyopathy 03/2023 EF 24% Diabetes mellitus Hypercholesterolemia Tobacco abuse Medical History (Updated 01/06/24 @ 03:05 by Edwina Lazo MD) Hx of upper gastrointestinal hemorrhage (05/2023) Presence of combination internal cardiac defibrillator (ICD) and pacemaker [employer] pulse generator implanted 05/2021, guided RV ICD lead, Medtronic atrial pacing lead, [facility] coronary sinus lead Peripheral arterial disease Peptic ulcer disease Ischemic cardiomyopathy 03/2023 EF 24% Inflammatory arthritis Hypercholesterolemia Hypertension Hx of gout Gangrene of left foot seen by Fang Cruz at [facility]. [facility] today - started on an abx, pt. unsure of name, has not yet picked up from pharmacy - she advised pt. that she feels all toes on left foot need to be removed and is sending info to Dr. Layne CAD (coronary artery disease) s/p CABG x 4 in 2010, 2 stents in 2003 Intermittent claudication History of anemia (05/2023) due to blood loss HFrEF (heart failure with reduced ejection fraction) Diabetic infection of left foot seen by Fang Cruz at [facility]. [facility] today - started on an abx, pt. unsure of name, has not yet picked up from pharmacy - she advised pt. that she feels all toes on left foot need to be removed and is sending info to Dr. Layne Diabetes mellitus IDDM Bilateral carotid bruits ASCVD (arteriosclerotic cardiovascular disease) Arthritis History of DVT of lower extremity (04/2023) right leg -unknown cause Adenomatous polyps hx Surgical History (Updated 01/05/24 @ 11:40 by Milli Rivera PA-C) Hx of colonoscopy with polypectomy History of esophagogastroduodenoscopy (EGD) S/P insertion of iliac artery stent x2; 05/2011- right illiac- x stent; 2018, [facility], x1 stent History of implantable cardioverter-defibrillator (ICD) insertion w/pacemaker; 05/2021, [facility], [facility]; f/u [facility] Hx of vascular surgery (04/2023) 04/2023 "replaced the entire artery in lt leg with an artificial one", [facility] 12/15/23, [facility], left leg cadaver vein placed Status post angioplasty with stent (07/27/22) [facility] x5 stents lt leg, w/ dr. layne History of heart artery stent (2009) 02/28/04, CP/abn stress test, [facility], x2 stents ~2009, CP/abn stress test, [facility], x2 stents; follows with [facility] in [facility] History of cardiac cath (2009) x2 02/28/04, CP/abn stress test, [facility], x2 stents ~2009, CP/abn stress test, [facility], x2 stents follows with [facility] History of amputation of great toe (05/2023) left, due to post op infection S/P CABG x 4 (2010) had been getting sick w/ N/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, saw PCP; done @ [facility] Family History Father , age 72 Diabetes Colonic polyp Hypertension Kidney disease Heart disease Dyslipidemia Coronary heart disease, Onset Age: 63 CABG Mother Lung disease Lung cancer, Onset Age: 70 small cell 72 Denies family history of Ovarian cancer Prostate cancer Deep vein thrombosis Alzheimer disease Dementia Depression Myocardial infarction Breast cancer Colorectal cancer Pulmonary embolism Stroke Asthma Social History Smoking Status: Current every day smoker Tobacco Type: Cigarettes Age Started Using Tobacco: 17; Cigarettes Per Day: quit 04/2023 (1/2 ppd); Second Hand Exposure: No; Do You Dip or Chew Tobacco: No; Hx Alcohol Use: Yes Alcohol type: beer Alcohol Intake Frequency: Monthly or Less Alcohol Intake Frequency Comment: 4-5 beers monthly Hx Substance Use: No Preferred Language: [place] Communication Ability: Effective Visual Impairment: Limited Hearing Ability: Use of Hearing Aid Dental Specialist Required: No Beliefs That Will Affect Care: None marital status: Current Living Situation: Spouse Current Living Situation Comment: Demetrice and daughter current occupational status: disabled How many Children do You have: 4 Feels Safe at Home: Yes Childhood Exposure to Second-Hand Smoke: Yes Diet: regular caffeine: Yes during the past year weight has: remained stable Dental Care, Regularly: No Physical Activity Frequency: Does not Exercise Seatbelt Use: always Sunscreen Use: Yes Do you think of yourself as: straight/heterosexual Gender Identity: Male Assistive Devices: Cane, Denture - Lower, Glasses and Hearing Aid - Bilateral Allergies Allergies Allergy/AdvReac Type Severity Reaction Status Date / Time No Known Allergies Allergy Verified 01/05/24 10:33 Home Meds Home Medications Medication Instructions Recorded Confirmed metoprolol succinate 25 mg 25 mg PO HS 04/20/23 01/06/24 tablet,extended release 24 hr empagliflozin 25 mg tablet 25 mg PO QAM 07/26/23 01/06/24 (Jardiance) ezetimibe 10 mg tablet 10 mg PO QAM 07/26/23 01/06/24 ferrous gluconate 324 mg (37.5 mg 324 mg PO QAM 07/26/23 01/06/24 iron) tablet magnesium oxide 400 mg PO QAM 07/26/23 01/06/24 oxycodone 10 mg tablet 10 mg PO Q6 PRN Pain 12/29/23 01/06/24 evolocumab 140 mg/mL subcutaneous 140 mg subcut .EVERY 2 WEEKS 01/06/24 01/06/24 pen injector (Loyda Brown) trazodone 100 mg tablet 150 mg PO HS 01/06/24 01/06/24 Previous Rx's Medication Instructions Recorded pen needle, diabetic 31 gauge x #100 ea 11/08/22 5/16" (BD Ultra-Fine Short Pen Needle) nitroglycerin 0.4 mg sublingual 0.4 mg sublingual Q5M PRN Pain #14 06/08/23 tablet tabs isosorbide mononitrate 120 mg 120 mg PO QAM #90 tabs 08/10/23 tablet,extended release 24 hr allopurinol 100 mg tablet 100 mg PO QAM #90 tabs 08/24/23 allopurinol 300 mg tablet 600 mg (2 x 300 mg) PO QAM #180 08/24/23 tabs apixaban 5 mg tablet (Eliquis) 5 mg PO BID #180 tabs 08/24/23 furosemide 40 mg tablet 40 mg PO QAM #90 tabs 08/24/23 sacubitril 24 mg-valsartan 26 mg 1 tab PO BID #60 tabs 08/27/23 tablet (Entresto) doxepin 6 mg tablet 6 mg PO HS #60 tabs 09/13/23 ranolazine 1,000 mg 1,000 mg PO BID #180 tabs 09/21/23 tablet,extended release,12 hr acetaminophen 650 mg 1,300 mg (2 x 650 mg) PO Q12H #120 09/30/23 tablet,extended release (Tylenol tabs Arthritis Pain) atorvastatin 80 mg tablet 80 mg PO HS #90 tabs 10/06/23 pantoprazole 40 mg tablet,delayed 40 mg PO BID #180 tabs 10/21/23 release clopidogrel 75 mg tablet 75 mg PO QAM #90 tabs 11/03/23 flash glucose sensor (FreeStyle #2 ea 12/09/23 Sandy 2 Sensor kit) insulin glargine 100 unit/mL (3 50 - 55 unit (0.5 - 0.55 mL) 12/13/23 mL) subcutaneous pen (Lantus subcut PM #45 mL Solostar U-100 Insulin) gabapentin 100 mg capsule 100 mg PO TID #90 caps 12/29/23 Results & Data (ED) Vital Signs Vital Signs - 24 hr 01/05/24 21:54 01/05/24 22:19 01/05/24 22:19 Temperature 36.3 C L Temperature Source Temporal Artery Scan Pulse Rate 104 H Pulse Rate from SpO2 Sensor Pulse Rhythm Regular Pulse Strength Normal Respiratory Rate 18 Respiratory Effort / Characteristics Non-Labored Spontaneous Respiratory Depth Normal Respiratory Pattern Regular Blood Pressure 143/66 H 133/65 133/65 Blood Pressure Mean 91 89 89 Blood Pressure Position Sitting Pulse Oximetry 98 Oxygen Delivery Method Room Air Sepsis Recent Fever Within 48 Hours No Sepsis New/Unexplained Change in Mental Status N/A Sepsis Action Taken by Nursing No Action Required 01/05/24 22:21 01/05/24 22:25 01/05/24 22:25 Temperature Temperature Source Pulse Rate 90 Pulse Rate from SpO2 Sensor Pulse Rhythm Pulse Strength Respiratory Rate Respiratory Effort / Characteristics Non-Labored Respiratory Depth Normal Respiratory Pattern Blood Pressure Blood Pressure Mean Blood Pressure Position Pulse Oximetry Oxygen Delivery Method Room Air Sepsis Recent Fever Within 48 Hours Sepsis New/Unexplained Change in Mental Status Sepsis Action Taken by Nursing 01/05/24 22:25 01/05/24 22:27 01/05/24 22:30 Temperature Temperature Source Pulse Rate 93 H 89 Pulse Rate from SpO2 Sensor 93 H 82 Pulse Rhythm Pulse Strength Respiratory Rate 18 18 Respiratory Effort / Characteristics Non-Labored Respiratory Depth Normal Respiratory Pattern Blood Pressure Blood Pressure Mean Blood Pressure Position Pulse Oximetry 97 96 Oxygen Delivery Method Sepsis Recent Fever Within 48 Hours Sepsis New/Unexplained Change in Mental Status Sepsis Action Taken by Nursing 01/05/24 22:30 01/05/24 22:45 01/05/24 23:00 Temperature Temperature Source Pulse Rate 90 Pulse Rate from SpO2 Sensor 90 Pulse Rhythm Pulse Strength Respiratory Rate 16 Respiratory Effort / Characteristics Respiratory Depth Respiratory Pattern Blood Pressure 149/90 H 125/72 Blood Pressure Mean 111 89 Blood Pressure Position Pulse Oximetry 98 Oxygen Delivery Method Sepsis Recent Fever Within 48 Hours Sepsis New/Unexplained Change in Mental Status Sepsis Action Taken by Nursing 01/05/24 23:06 01/05/24 23:21 01/05/24 23:30 Temperature Temperature Source Pulse Rate 82 Pulse Rate from SpO2 Sensor 85 79 Pulse Rhythm Pulse Strength Respiratory Rate 21 26 H 17 Respiratory Effort / Characteristics Respiratory Depth Respiratory Pattern Blood Pressure Blood Pressure Mean Blood Pressure Position Pulse Oximetry 91 93 Oxygen Delivery Method Sepsis Recent Fever Within 48 Hours Sepsis New/Unexplained Change in Mental Status Sepsis Action Taken by Nursing 01/05/24 23:30 01/05/24 23:30 01/05/24 23:30 Temperature Temperature Source Pulse Rate Pulse Rate from SpO2 Sensor Pulse Rhythm Pulse Strength Respiratory Rate Respiratory Effort / Characteristics Respiratory Depth Respiratory Pattern Blood Pressure 135/71 135/71 135/71 Blood Pressure Mean 102 102 102 Blood Pressure Position Pulse Oximetry Oxygen Delivery Method Sepsis Recent Fever Within 48 Hours Sepsis New/Unexplained Change in Mental Status Sepsis Action Taken by Nursing 01/05/24 23:42 01/05/24 23:54 01/05/24 23:57 Temperature Temperature Source Pulse Rate 79 81 79 Pulse Rate from SpO2 Sensor 79 81 80 Pulse Rhythm Pulse Strength Respiratory Rate 16 17 16 Respiratory Effort / Characteristics Respiratory Depth Respiratory Pattern Blood Pressure Blood Pressure Mean Blood Pressure Position Pulse Oximetry 94 95 93 Oxygen Delivery Method Sepsis Recent Fever Within 48 Hours Sepsis New/Unexplained Change in Mental Status Sepsis Action Taken by Nursing 01/06/24 00:00 01/06/24 00:00 01/06/24 00:06 Temperature Temperature Source Pulse Rate 79 Pulse Rate from SpO2 Sensor 78 Pulse Rhythm Pulse Strength Respiratory Rate 16 Respiratory Effort / Characteristics Non-Labored Respiratory Depth Normal Respiratory Pattern Blood Pressure 138/90 Blood Pressure Mean 118 Blood Pressure Position Pulse Oximetry 93 Oxygen Delivery Method Sepsis Recent Fever Within 48 Hours Sepsis New/Unexplained Change in Mental Status Sepsis Action Taken by Nursing 01/06/24 00:51 01/06/24 01:00 01/06/24 01:00 Temperature Temperature Source Pulse Rate 79 Pulse Rate from SpO2 Sensor 77 Pulse Rhythm Pulse Strength Respiratory Rate 15 Respiratory Effort / Characteristics Non-Labored Respiratory Depth Normal Respiratory Pattern Blood Pressure 128/60 Blood Pressure Mean 87 Blood Pressure Position Pulse Oximetry 91 Oxygen Delivery Method Sepsis Recent Fever Within 48 Hours Sepsis New/Unexplained Change in Mental Status Sepsis Action Taken by Nursing 01/06/24 01:00 01/06/24 01:03 01/06/24 01:18 Temperature Temperature Source Pulse Rate 82 87 Pulse Rate from SpO2 Sensor 81 75 Pulse Rhythm Pulse Strength Respiratory Rate 16 15 Respiratory Effort / Characteristics Respiratory Depth Respiratory Pattern Blood Pressure 128/60 Blood Pressure Mean 87 Blood Pressure Position Pulse Oximetry 91 91 Oxygen Delivery Method Sepsis Recent Fever Within 48 Hours Sepsis New/Unexplained Change in Mental Status Sepsis Action Taken by Nursing 01/06/24 01:24 01/06/24 01:30 01/06/24 01:30 Temperature Temperature Source Pulse Rate 85 76 Pulse Rate from SpO2 Sensor 83 78 Pulse Rhythm Pulse Strength Respiratory Rate 16 18 Respiratory Effort / Characteristics Respiratory Depth Respiratory Pattern Blood Pressure 116/58 L Blood Pressure Mean 77 Blood Pressure Position Pulse Oximetry 91 90 Oxygen Delivery Method Sepsis Recent Fever Within 48 Hours Sepsis New/Unexplained Change in Mental Status Sepsis Action Taken by Nursing 01/06/24 01:30 01/06/24 01:42 01/06/24 01:54 Temperature Temperature Source Pulse Rate 74 75 Pulse Rate from SpO2 Sensor 74 75 Pulse Rhythm Pulse Strength Respiratory Rate 16 16 Respiratory Effort / Characteristics Respiratory Depth Respiratory Pattern Blood Pressure 116/58 L Blood Pressure Mean 77 Blood Pressure Position Pulse Oximetry 91 92 Oxygen Delivery Method Sepsis Recent Fever Within 48 Hours Sepsis New/Unexplained Change in Mental Status Sepsis Action Taken by Nursing 01/06/24 02:00 01/06/24 02:00 01/06/24 02:00 Temperature Temperature Source Pulse Rate 76 Pulse Rate from SpO2 Sensor 75 Pulse Rhythm Pulse Strength Respiratory Rate 16 Respiratory Effort / Characteristics Non-Labored Spontaneous Non-Labored Respiratory Depth Normal Normal Respiratory Pattern Blood Pressure Blood Pressure Mean Blood Pressure Position Pulse Oximetry 93 Oxygen Delivery Method Sepsis Recent Fever Within 48 Hours Sepsis New/Unexplained Change in Mental Status Sepsis Action Taken by Nursing 01/06/24 02:00 01/06/24 02:00 01/06/24 02:00 Temperature Temperature Source Pulse Rate Pulse Rate from SpO2 Sensor Pulse Rhythm Pulse Strength Respiratory Rate Respiratory Effort / Characteristics Respiratory Depth Respiratory Pattern Blood Pressure 124/62 124/62 124/62 Blood Pressure Mean 79 79 79 Blood Pressure Position Pulse Oximetry Oxygen Delivery Method Sepsis Recent Fever Within 48 Hours Sepsis New/Unexplained Change in Mental Status Sepsis Action Taken by Nursing 01/06/24 02:12 01/06/24 02:23 Temperature Temperature Source Pulse Rate 76 79 Pulse Rate from SpO2 Sensor 76 Pulse Rhythm Pulse Strength Respiratory Rate 16 Respiratory Effort / Characteristics Respiratory Depth Respiratory Pattern Blood Pressure Blood Pressure Mean Blood Pressure Position Pulse Oximetry 94 Oxygen Delivery Method Sepsis Recent Fever Within 48 Hours Sepsis New/Unexplained Change in Mental Status Sepsis Action Taken by Nursing Laboratory Data 01/05/24 22:44 01/05/24 22:44 Lab Results 01/05/24 01/05/24 01/06/24 Range/Units 22:36 22:44 00:59 WBC 11.07 H (4.8-10.8) K/ul RBC 3.09 L (4.70-6.10) M/uL Hgb 9.1 L (14.0-18.0) g/dl Hct 28.0 L (42.0-52.0) % MCV 90.6 (80.0-100.0) fL MCH 29.4 (25.0-34.0) pg MCHC 32.5 (32.0-36.0) g/dL RDW Std Deviation 51.0 H (36.4-46.3) fL RDW Coeff of Mayuri 15.5 H (11.5-14.5) % Plt Count 397 (130-400) K/uL MPV 8.9 L (9.4-12.4) fL Immature Gran % (Auto) 0.6 % Neut % (Auto) 79.1 % Lymph % (Auto) 11.9 % [place] % (Auto) 7.4 % Eos % (Auto) 0.6 % Baso % (Auto) 0.4 % Neut # (Auto) 8.75 H (1.40-6.50) K/uL Lymph # (Auto) 1.32 (1.20-3.40) K/uL [place] # (Auto) 0.82 H (0.11-0.59) K/uL Eos # (Auto) 0.07 (0.00-0.50) K/uL Baso # (Auto) 0.04 (0.00-0.20) K/uL Immature Gran # (Auto) 0.07 (0.01-0.20) K/uL PT 10.6 (9.0-12.0) Seconds INR 1.0 (0.9-1.1) Sodium 136 (136-145) mmol/L Potassium 4.3 (3.5-5.1) mmol/L Chloride 105 (98-107) mmol/L Carbon Dioxide 22 (21-32) mmol/L Anion Gap 9 (3-11) BUN 31 H (6-23) mg/dl Creatinine 0.96 (0.6-1.4) mg/dl Est Cr Clr Drug Dosing 88.5 ml/min Est GFR ( Amer) 94.4 ml/min Est GFR (Non-Af Amer) 81.5 ml/min BUN/Creatinine Ratio 32.3 H (10-20) Glucose 218 H (70-99(Fasting)) mg/dl Lactate 1.6 (0.4-2.0) mmol/L Calcium 8.8 (8.6-10.3) mg/dl Magnesium 2.0 (1.7-2.4) mg/dl Total Bilirubin 0.4 (0.2-1.0) mg/dl Direct Bilirubin 0.1 (0-0.2) mg/dl AST 11 L (13-39) U/L ALT 10 (7-52) U/L Alkaline Phosphatase 71 (34-104) U/L Troponin I High Sens 40.7 H 43.0 H (0-20) pg/ml Total Protein 7.4 (6.0-8.3) gm/dl Albumin 3.4 (3.4-5.0) gm/dl Procalcitonin 0.03 (0-0.5) ng/ml Adenovirus (PCR) Not Detected (NotDetected) B. pertussis DNA (PCR) Not Detected (NotDetected) B.parapertussis DNA PCR Not Detected (NotDetected) C. pneumoniae DNA (PCR) Not Detected (NotDetected) Coronavirus OC43 (PCR) Not Detected (NotDetected) Coronavirus HKU1 (PCR) Not Detected (NotDetected) Coronavirus 229E (PCR) Not Detected (NotDetected) SARS-CoV-2 (PCR) Not Detected (NotDetected) Coronavirus NL63 (PCR) Not Detected (NotDetected) Human Metapneumovir PCR Not Detected (NotDetected) Influenza Type A (PCR) Not Detected (NotDetected) Influenza Type B (PCR) Not Detected (NotDetected) M. pneumoniae (PCR) Not Detected (NotDetected) Parainfluenza 1 (PCR) Not Detected (NotDetected) Parainfluenza 2 (PCR) Not Detected (NotDetected) Parainfluenza 3 (PCR) Not Detected (NotDetected) Parainfluenza 4 (PCR) Not Detected (NotDetected) RSV (PCR) Not Detected (NotDetected) Entero/Rhino (PCR) Not Detected (NotDetected) Administered Medications Daptomycin 500 mg/ Syringe 10 mls @ 5 mls/min IV Q24H [facility]; Protocol Stop: 01/07/24 23:29 Last Admin: 01/05/24 23:39 Dose: 5 mls/min Documented By: ANTHONY Discontinued Medications Fentanyl Citrate (Fentanyl Citrate Pf 100 Mcg/2 Ml Vial) 50 mcg IV NOW STA Stop: 01/05/24 22:59 Last Admin: 01/05/24 23:05 Dose: 50 mcg Documented By: ANTHONY Sodium Chloride (Nss) 1,000 mls @ 999 mls/hr IV .Q1H1M ONE Stop: 01/06/24 00:21 Last Infusion: 01/06/24 01:36 Dose: Infused Documented By: Admin: 01/06/24 00:16 Dose: 999 mls/hr Documented By: ANTHONY Piperacillin Sod/Tazobactam Sod (Zosyn) 4.5 gm in 100 mls @ 200 mls/hr IV NOW ONE Stop: 01/05/24 23:50 Last Infusion: 01/06/24 00:21 Dose: Infused Documented By: Admin: 01/05/24 23:39 Dose: 200 mls/hr Documented By: ANTHONY Clindamycin Phosphate (Cleocin/D5w) 900 mg in 50 mls @ 100 mls/hr IV NOW ONE Stop: 01/05/24 23:50 Last Infusion: 01/06/24 00:21 Dose: Infused Documented By: Admin: 01/05/24 23:39 Dose: 100 mls/hr Documented By: ANTHONY Imaging Data Radiologist's Impression: Head CT 01/06/24 00:00 Exam(s): CT HEAD Without Contrast EXAM: CT Head Without Intravenous Contrast CLINICAL HISTORY: Reason for exam: confusion. TECHNIQUE: Axial computed tomography images of the head/brain without intravenous contrast. CTDI is 37.51 mGy and DLP is 624.41 mGy-cm. Automated exposure control was utilized for the study. A dose lowering technique was utilized adhering to the principles of ALARA. COMPARISON: No relevant prior studies available. FINDINGS: No acute intracranial hemorrhage. No midline shift or mass effect. The territorial oneal-white matter differentiation is maintained throughout. Age-related cerebral volume loss. Periventricular and subcortical white matter hypoattenuation, consistent with chronic microangiopathy. The visualized orbits appear grossly unremarkable. The calvarium is intact. Opacified RIGHT maxillary sinus. IMPRESSION: No acute intracranial hemorrhage, midline shift, or mass effect. Electronically signed by: Alvin Leo MD 01/06/24 01:[address] 01/06/24 00:13 Exam(s): CT LEFT FOOT Without Contrast EXAM: CT Left Lower Extremity Without Intravenous Contrast, Foot CLINICAL HISTORY: Reason for exam: LLE pain; hx of gangrene. TECHNIQUE: Axial computed tomography images of the left foot without intravenous contrast. CTDI is 6 mGy and DLP is 351 mGy-cm. Automated exposure control was utilized for the study. A dose lowering technique was utilized adhering to the principles of ALARA. COMPARISON: No relevant prior studies available. FINDINGS: Bones/joints: If there is concern for osteomyelitis, recommend MRI. 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 No acute fracture. No dislocation. Soft tissues: Skin thickening and subcutaneous edema of the soft tissue stump, for which cellulitis should be clinically excluded. No drainable fluid collection or abscess. No subcutaneous air. No radiopaque foreign body. 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 Skin thickening and subcutaneous edema of the soft tissue stump, for which cellulitis should be clinically excluded. No drainable fluid collection or abscess. No subcutaneous air. If there is concern for osteomyelitis, recommend MRI. Electronically signed by: Alvin Leo MD 01/06/24 02:47 AM Discharge Plan Visit Data Chief Complaint: Infection Stated Complaint: LT LEG AMPUTATION SURG, GANGGREEN SPREADING ED Provider: Edwina Lazo Discharge Problem: Acute confusion, Left leg pain, Non-ST elevation VA (NSTEMI), Postoperative wound infection, Cellulitis of left leg Forms Stand Alone Forms: [facility] F[facility] Prescriptions Prescriptions: No Action (DME) pen needle, diabetic [BD Ultra-Fine Short Pen Needle] 31 gauge x 5/16" needle See Rx Instructions .ROUTE .MEDSUPPLY Qty: 100 3RF Rx Instructions: As [id number] times per day for insulin administration isosorbide mononitrate 120 mg tablet extended release 24 hr 120 mg PO QAM Qty: 90 3RF furosemide 40 mg tablet 40 mg PO QAM Qty: 90 1RF Eliquis 5 mg tablet 5 mg PO BID Qty: 180 1RF allopurinol 100 mg tablet 100 mg PO QAM Qty: 90 1RF Rx Instructions: Take 600mg w/ 100mg by mouth once in the morning for a total dose of 700mg in the morning allopurinol 300 mg tablet 600 mg PO QAM Qty: 180 1RF Rx Instructions: Take 600mg w/ 100mg by mouth once in the morning for a total dose of 700mg in the morning ranolazine 1,000 mg tablet extended release 12 hr 1,000 mg PO BID Qty: 180 3RF Rx Instructions: TAKE 1 TABLET BY MOUTH TWICE A DAY acetaminophen [Tylenol Arthritis Pain] 650 mg tablet extended release 1,300 mg PO Q12H Qty: 120 2RF atorvastatin 80 mg tablet 80 mg PO HS Qty: 90 1RF pantoprazole 40 mg tablet,delayed release (DR/EC) 40 mg PO BID Qty: 180 1RF clopidogrel 75 mg tablet 75 mg PO QAM Qty: 90 0RF (DME) FreeStyle Sandy 2 Sensor Kit See Rx Instructions .Route Qty: 2 5RF Rx Instructions: As directed to check blood sugars at least once every 8 hours; change every 14 days insulin glargine [Lantus Solostar U-100 Insulin] 100 unit/mL (3 mL) insulin pen 50 - 55 unit SUBCUT PM Qty: 45 0RF nitroglycerin 0.4 mg tablet, sublingual 0.4 mg sublingual Q5M PRN (Reason: Pain) Qty: 14 5RF Patient Comments: has never used Rx Instructions: do not exceed 3 doses per episode doxepin 6 mg tablet 6 mg PO HS Qty: 60 2RF Entresto 24-26 mg tablet 1 tab PO BID Qty: 60 2RF oxycodone 10 mg tablet 10 mg PO Q6 PRN (Reason: Pain) gabapentin 100 mg capsule 100 mg PO TID Qty: 90 2RF ezetimibe 10 mg tablet 10 mg PO QAM ferrous gluconate 324 mg (37.5 mg iron) tablet 324 mg PO QAM Jardiance 25 mg tablet 25 mg PO QAM magnesium oxide 400 mg magnesium tablet 400 mg PO QAM metoprolol succinate 25 mg tablet extended release 24 hr 25 mg PO HS trazodone 100 mg tablet 150 mg PO HS Repatha SureClick 140 mg/mL pen injector 140 mg SUBCUT .EVERY 2 WEEKS Referrals Referrals: Domingo Valentino MD [Primary Care Provider] -
[2024-01-05] MEDS: fentaNYL citrate PF 100 MCG/2 ML VIAL IV STA (23:05)
[2024-01-05 23:16] LABS: Basophils # (auto) 0.04 K/uL (0.00-0.20); Basophils % (auto) 0.4 %; Eosinophils # (auto) 0.07 K/uL (0.00-0.50); Eosinophils % (auto) 0.6 %; Hemoglobin 9.1 g/dl (14.0-18.0); Immature Granulocytes # (auto) 0.07 K/uL (0.01-0.20); Immature Granulocytes % (auto) 0.6 %; Lymphocytes # (auto) 1.32 K/uL (1.20-3.40); Lymphocytes % (auto) 11.9 %; Mean Corpuscular Hemoglobin 29.4 pg (25.0-34.0); Mean Corpuscular Hgb Conc 32.5 g/dL (32.0-36.0); Mean Corpuscular Volume 90.6 fL (80.0-100.0); Mean Platelet Volume 8.9 fL (9.4-12.4); Monocytes # (auto) 0.82 K/uL (0.11-0.59); Monocytes % (auto) 7.4 %; Neutrophils # (auto) 8.75 K/uL (1.40-6.50); Neutrophils % (auto) 79.1 %; Platelet Count 397 K/uL (130-400); RDW Coefficient of Variation 15.5 % (11.5-14.5); Red Blood Count 3.09 M/uL (4.70-6.10); White Blood Count 11.07 K/ul (4.8-10.8)
[2024-01-05 23:30] LABS: Albumin Level 3.4 gm/dl (3.4-5.0); BUN Creatinine Ratio 32.3 (10-20); Bilirubin Direct 0.1 mg/dl (0-0.2); Bilirubin,Total 0.4 mg/dl (0.2-1.0); Calcium 8.8 mg/dl (8.6-10.3); Creatinine Clr Calc Pharmacy 88.5 ml/min; Est GFR (African American) 94.4 ml/min; Est GFR (Non-African American) 81.5 ml/min; Potassium 4.3 mmol/L (3.5-5.1); Total Protein 7.4 gm/dl (6.0-8.3)
[2024-01-05 23:37] LABS: Troponin I High Sensitivity 40.7 pg/ml (0-20)
[2024-01-05] MEDS: DAPTOmycin 500 MG in SYRINGE 0 ML IV SCH (23:39)
[2024-01-05] MEDS: PIPERACILLIN/TAZOBACTAM 4.5 GM/100 ML BAG IV ONE (23:39)
[2024-01-05] MEDS: CLINDAMYCIN/D5W 900 MG/50 ML BAG IV ONE (23:39)
[2024-01-05 23:48] LABS: Prothrombin Time 10.6 Seconds (9.0-12.0)
[2024-01-05 23:48] LABS: Adenovirus PCR Not Detected (NotDetected); Bordetella parapertussis PCR Not Detected (NotDetected); Bordetella pertussis PCR Not Detected (NotDetected); Chlamydia pneumoniae PCR Not Detected (NotDetected); Coronavirus 229E PCR Not Detected (NotDetected); Coronavirus CoV-2 (COVID19)PCR Not Detected (NotDetected); Coronavirus HKU1 PCR Not Detected (NotDetected); Coronavirus NL63 PCR Not Detected (NotDetected); Coronavirus OC43PCR Not Detected (NotDetected); Human Metapneumovirus PCR Not Detected (NotDetected); Influenza A PCR Not Detected (NotDetected); Influenza B PCR Not Detected (NotDetected); Mycoplasma pneumoniae PCR Not Detected (NotDetected); Parainfluenza Virus 1 PCR Not Detected (NotDetected); Parainfluenza Virus 2 PCR Not Detected (NotDetected); Parainfluenza Virus 3 PCR Not Detected (NotDetected); Parainfluenza Virus 4 PCR Not Detected (NotDetected); Respiratory Syncytial VirusPCR Not Detected (NotDetected); Rhinovirus/Enterovirus PCR Not Detected (NotDetected)
[2024-01-06] MEDS: SODIUM CHLORIDE 0.9% 1,000 ML IV ONE (00:16)
--- NOTE | 2024-01-06 01:28 | CT Scan Report ---
Exam(s): CT HEAD Without Contrast EXAM: CT Head Without Intravenous Contrast CLINICAL HISTORY: Reason for exam: confusion. TECHNIQUE: Axial computed tomography images of the head/brain without intravenous contrast. CTDI is 37.51 mGy and DLP is 624.41 mGy-cm. Automated exposure control was utilized for the study. A dose lowering technique was utilized adhering to the principles of ALARA. COMPARISON: No relevant prior studies available. FINDINGS: No acute intracranial hemorrhage. No midline shift or mass effect. The territorial oneal-white matter differentiation is maintained throughout. Age-related cerebral volume loss. Periventricular and subcortical white matter hypoattenuation, consistent with chronic microangiopathy. The visualized orbits appear grossly unremarkable. The calvarium is intact. Opacified RIGHT maxillary sinus. IMPRESSION: No acute intracranial hemorrhage, midline shift, or mass effect. Electronically signed by: Alvin Leo MD 01/06/24 01:27 AM
--- NOTE | 2024-01-06 02:48 | CT Scan Report ---
Exam(s): CT LEFT FOOT Without Contrast EXAM: CT Left Lower Extremity Without Intravenous Contrast, Foot CLINICAL HISTORY: Reason for exam: LLE pain; hx of gangrene. TECHNIQUE: Axial computed tomography images of the left foot without intravenous contrast. CTDI is 6 mGy and DLP is 351 mGy-cm. Automated exposure control was utilized for the study. A dose lowering technique was utilized adhering to the principles of ALARA. COMPARISON: No relevant prior studies available. FINDINGS: Bones/joints: If there is concern for osteomyelitis, recommend MRI. 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 No acute fracture. No dislocation. Soft tissues: Skin thickening and subcutaneous edema of the soft tissue stump, for which cellulitis should be clinically excluded. No drainable fluid collection or abscess. No subcutaneous air. No radiopaque foreign body. 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 Skin thickening and subcutaneous edema of the soft tissue stump, for which cellulitis should be clinically excluded. No drainable fluid collection or abscess. No subcutaneous air. If there is concern for osteomyelitis, recommend MRI. Electronically signed by: Alvin Leo MD 01/06/24 02:47 AM
--- NOTE | 2024-01-06 03:15 | CT Scan Report ---
Exam(s): CT EXTREMITY LEFT LOWER Without Contrast EXAM: CT Left Lower Extremity Without Intravenous Contrast CLINICAL HISTORY: Reason for exam: LLE pain; hx of gangrene. TECHNIQUE: Axial computed tomography images of the left lower extremity without intravenous contrast. CTDI is 6 mGy and DLP is 351.55 mGy-cm. Automated exposure control was utilized for the study. A dose lowering technique was utilized adhering to the principles of ALARA. COMPARISON: No relevant prior studies available. FINDINGS: Bones/joints: Unremarkable. No acute fracture. No dislocation. No CT evidence of osteomyelitis of the tibia or fibula. Soft tissues: Circumferential subcutaneous edema, concerning for cellulitis. Skin coral along the medial aspect of the calf, correlate with surgical history. No subcutaneous fluid collection, abscess, or air. Vasculature: Popliteal graft is noted. Evaluation limited without contrast. IMPRESSION: 1. No subcutaneous fluid collection, abscess, or air. 2. Circumferential subcutaneous edema, concerning for cellulitis. Electronically signed by: Alvin Leo MD 01/06/24 03:13 AM
--- NOTE | 2024-01-06 03:54 | History & Physical Report ---
Date of Service January 06, 2024 Assessment & Plan (1) Diabetic infection of left foot: (2) Gangrene of left foot: (3) Peripheral arterial disease: (4) Pseudomonas aeruginosa infection: (5) Bacteroides fragilis infection: (6) Hypertension: (7) CAD (coronary artery disease): (8) Diabetes mellitus: (9) HFrEF (heart failure with reduced ejection fraction): (10) Presence of combination internal cardiac defibrillator (ICD) and pacemaker: Plan: Diabetic left foot infection/stump cellulitis/history of Pseudomonas aeruginosa and Bacteroides fragilis- Received daptomycin IV and Zosyn IV from the ED Admit on vancomycin IV per pharmacokinetic monitoring Zosyn 4.5 g IV every 8 hours Scheduled for left BKA on 01/11/2024 Consult infectious disease PAD- Lower extremity artery duplex scan: Left superficial femoral artery stent is occluded. Occluded bypass graft, which probably extends from the proximal left superficial femoral artery to the proximal left posterior tibial artery. Incidental finding of occlusive thrombus in the left peroneal veins and one of the left posterior tibial veins Proximal left popliteal artery with 50-75% stenosis Change apixaban to heparin IV standard protocol in anticipation of upcoming surgery Continue clopidogrel Consult vascular surgery Dr. Layne CAD/hypertension/ischemic cardiomyopathy/history of stents- Continue clopidogrel, isosorbide mononitrate, metoprolol succinate, ranolazine, Entresto Diabetes mellitus- Change glargine from 50-55 units subcu every afternoon to 40 units Hold Jardiance Placed on Accu-Cheks with NovoLog SSI Hyperlipidemia- Continue Zetia and atorvastatin- On Repatha as outpatient GERD/history of GI bleed- Continue pantoprazole History of Present Illness Chief Complaint: The patient has been brought to the emergency department due to family concerns regarding worsening left lower extremity gangrenous infection and confusion. He underwent a left lower extremity bypass graft surgery on 12/15/2023, which unfortunately has completely occluded, as per records of [place] noted on 01/03/24, and now remains with a progressive gangrenous infection. Prior to that, patient did have amputation of toes and distal metatarsals, which did grow Pseudomonas aeruginosa, Bacteroides fragilis and Fingoldia magna. Vascular surgeon Dr. Layne is away on vacation, and emergency room Dr. Lazo has spoken with vascular surgery on-call at [facility] Dr. Errol Enrique, who recommends the patient be admitted to [facility] for IV antibiotics, in preparation for planned amputation on 01/11/2024. He a grees to reassess the patient, if there is signs of necrotizing fasciitis or sepsis. Primary Care Provider: Domingo Valentino MD The patient is a 68-year-old male with postoperative wound infection as noted above, upper GI bleed, peptic ulcer disease, right leg DVT, HFrEF, ASCVD, presence of anterior cardiac defibrillator and pacemaker, diabetic left foot infection, gout, PAD, status post coronary artery stent placement, status post iliac artery stent placement, CAD, ischemic cardiomyopathy, diabetes mellitus, hypercholesterolemia and tobacco abuse. The patient will be admitted as noted above for IV antibiotics, with vascular surgery consult for plans left lower extremity amputation next week, unless clinical conditions worsens in the interim. Allergies Allergy/AdvReac Type Severity Reaction Status Date / Time No Known Allergies Allergy Verified 01/05/24 10:33 Home Medications Medication Instructions Recorded Confirmed Type pen needle, diabetic 31 gauge x #100 ea 11/08/22 01/06/24 Rx 5/16" (BD Ultra-Fine Short Pen Needle) metoprolol succinate 25 mg 25 mg PO HS 04/20/23 01/06/24 History tablet,extended release 24 hr nitroglycerin 0.4 mg sublingual 0.4 mg sublingual Q5M PRN Pain #14 06/08/23 01/06/24 Rx tablet tabs empagliflozin 25 mg tablet 25 mg PO QAM 07/26/23 01/06/24 History (Jardiance) ezetimibe 10 mg tablet 10 mg PO QAM 07/26/23 01/06/24 History ferrous gluconate 324 mg (37.5 mg 324 mg PO QAM 07/26/23 01/06/24 History iron) tablet magnesium oxide 400 mg PO QAM 07/26/23 01/06/24 History isosorbide mononitrate 120 mg 120 mg PO QAM #90 tabs 08/10/23 01/06/24 Rx tablet,extended release 24 hr allopurinol 100 mg tablet 100 mg PO QAM #90 tabs 08/24/23 01/06/24 Rx allopurinol 300 mg tablet 600 mg (2 x 300 mg) PO QAM #180 08/24/23 01/06/24 Rx tabs apixaban 5 mg tablet (Eliquis) 5 mg PO BID #180 tabs 08/24/23 01/06/24 Rx furosemide 40 mg tablet 40 mg PO QAM #90 tabs 08/24/23 01/06/24 Rx sacubitril 24 mg-valsartan 26 mg 1 tab PO BID #60 tabs 08/27/23 01/06/24 Rx tablet (Entresto) doxepin 6 mg tablet 6 mg PO HS #60 tabs 09/13/23 01/06/24 Rx ranolazine 1,000 mg 1,000 mg PO BID #180 tabs 09/21/23 01/06/24 Rx tablet,extended release,12 hr acetaminophen 650 mg 1,300 mg (2 x 650 mg) PO Q12H #120 09/30/23 01/06/24 Rx tablet,extended release (Tylenol tabs Arthritis Pain) atorvastatin 80 mg tablet 80 mg PO HS #90 tabs 10/06/23 01/06/24 Rx pantoprazole 40 mg tablet,delayed 40 mg PO BID #180 tabs 10/21/23 01/06/24 Rx release clopidogrel 75 mg tablet 75 mg PO QAM #90 tabs 11/03/23 01/06/24 Rx flash glucose sensor (FreeStyle #2 ea 12/09/23 01/06/24 Rx Sandy 2 Sensor kit) insulin glargine 100 unit/mL (3 50 - 55 unit (0.5 - 0.55 mL) 12/13/23 01/06/24 Rx mL) subcutaneous pen (Lantus subcut PM #45 mL Solostar U-100 Insulin) gabapentin 100 mg capsule 100 mg PO TID #90 caps 12/29/23 01/06/24 Rx oxycodone 10 mg tablet 10 mg PO Q6 PRN Pain 12/29/23 01/06/24 History evolocumab 140 mg/mL subcutaneous 140 mg subcut .EVERY 2 WEEKS 01/06/24 01/06/24 History pen injector (Repatha Antoineick) trazodone 100 mg tablet 150 mg PO HS 01/06/24 01/06/24 History Past Med/Surg History Problem List (Updated 01/06/24 @ 05:19 by Pradeep Bailey MD) Bacteroides fragilis infection Pseudomonas aeruginosa infection Hypertension CAD (coronary artery disease) s/p CABG x 4 in 2010, 2 stents in 2003 Diabetic infection of left foot seen by Fang Cruz at [facility]. [facility] today - started on an abx, pt. unsure of name, has not yet picked up from pharmacy - she advised pt. that she feels all toes on left foot need to be removed and is sending info to Dr. Layne Diabetes mellitus IDDM HFrEF (heart failure with reduced ejection fraction) Gangrene of left foot seen by Fang Cruz at [facility]. [facility] today - started on an abx, pt. unsure of name, has not yet picked up from pharmacy - she advised pt. that she feels all toes on left foot need to be removed and is sending info to Dr. Layne Presence of combination internal cardiac defibrillator (ICD) and pacemaker [employer] pulse generator implanted 05/2021, guided RV ICD lead, Medtronic atrial pacing lead, [employer] coronary sinus lead Peripheral arterial disease Cellulitis of left leg (Acute) Postoperative wound infection (Acute) Non-ST elevation WI (NSTEMI) (Acute) Left leg pain (Acute) Acute confusion (Acute) Acute blood loss as cause of postoperative anemia Encounter for pre-operative examination Skin tear of left upper arm without complication 09/13/23 Insomnia Wound of groin 06/16/23 Blood loss anemia 05/23/23 Upper GI bleed hx-05/2023 Superficial postoperative wound infection hx>lt big toe>removed 05/2023 Peptic ulcer disease Melena resolved Status post amputation of left great toe Right leg DVT Hypomagnesemia Gangrene of toe of left foot HFrEF (heart failure with reduced ejection fraction) ASCVD (arteriosclerotic cardiovascular disease) Presence of combination internal cardiac defibrillator (ICD) and pacemaker Preop cardiovascular exam Diabetic infection of left foot Infection of great toe (Acute) No pertinent past surgical history Urinary frequency 09/11/22 Prostatitis 09/11/22 Microscopic hematuria 09/01/22 Left wrist pain resolved Inflammatory arthritis Leg edema, left 08/07/22 Gout attack 08/07/22 Intractable nausea and vomiting 07/28/22 Biventricular ICD (implantable cardioverter-defibrillator) in place [employer] pulse generator implanted 05/2021, guided RV ICD lead, Medtronic atrial pacing lead, [facility] coronary sinus lead Bilateral carotid bruits Peripheral arterial disease Fatigue Lumbar back pain with radiculopathy affecting left lower extremity Claudication S/P coronary artery stent placement TANIA 09/19/2020 S/P insertion of iliac artery stent 05/2011 right iliac Pacemaker Hypertension Hearing difficulty History of gout Coronary artery disease Arthritis Ischemic cardiomyopathy 03/2023 EF 24% Diabetes mellitus Hypercholesterolemia Tobacco abuse Medical History (Updated 01/06/24 @ 05:19 by Pradeep Bailey MD) Hx of upper gastrointestinal hemorrhage (05/2023) Peptic ulcer disease Ischemic cardiomyopathy 03/2023 EF 24% Inflammatory arthritis Hypercholesterolemia Hx of gout Intermittent claudication History of anemia (05/2023) due to blood loss Bilateral carotid bruits ASCVD (arteriosclerotic cardiovascular disease) Arthritis History of DVT of lower extremity (04/2023) right leg -unknown cause Adenomatous polyps hx Surgical History (Updated 01/05/24 @ 11:40 by Milli Rivera PA-C) Hx of colonoscopy with polypectomy History of esophagogastroduodenoscopy (EGD) S/P insertion of iliac artery stent x2; 05/2011- right illiac- x stent; 2018, [facility], x1 stent History of implantable cardioverter-defibrillator (ICD) insertion w/pacemaker; 05/2021, [facility], [facility]; f/u [facility] Hx of vascular surgery (04/2023) 04/2023 "replaced the entire artery in lt leg with an artificial one", [facility] [place] [place] 12/15/23, [facility], left leg cadaver vein placed Status post angioplasty with stent (07/27/22) [facility] x5 stents lt leg, w/ dr. 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, saw PCP; done @ [facility] Family History Father , age 72 Diabetes Colonic polyp Hypertension Kidney disease Heart disease Dyslipidemia Coronary heart disease, Onset Age: 63 CABG Mother Lung disease Lung cancer, Onset Age: 70 small cell 71 Denies family history of Ovarian cancer Prostate cancer Deep vein thrombosis Alzheimer disease Dementia Depression Myocardial infarction Breast cancer Colorectal cancer Pulmonary embolism Stroke Asthma Social History Smoking Status: Current every day smoker Tobacco Type: Cigarettes Age Started Using Tobacco: 17; Cigarettes Per Day: quit 04/2023 (05/18 ppd); Second Hand Exposure: No; Do You Dip or Chew Tobacco: No; Hx Alcohol Use: Yes Alcohol type: beer Alcohol Intake Frequency: Monthly or Less Alcohol Intake Frequency Comment: 4-5 beers monthly Hx Substance Use: No Preferred Language: Citizen Of [place] Communication Ability: Effective Visual Impairment: Limited Hearing Ability: Use of Hearing Aid Field Scout Required: No Beliefs That Will Affect Care: None marital status: Current Living Situation: Spouse Current Living Situation Comment: Demetrice and daughter current occupational status: disabled How many Children do You have: 4 Feels Safe at Home: Yes Childhood Exposure to Second-Hand Smoke: Yes Diet: regular caffeine: Yes during the past year weight has: remained stable Dental Care, Regularly: No Physical Activity Frequency: Does not Exercise Seatbelt Use: always Sunscreen Use: Yes Do you think of yourself as: straight/heterosexual Gender Identity: Male Assistive Devices: Cane, Denture - Lower, Glasses and Hearing Aid - Bilateral Review of Systems Review of Systems: The patient denies chest pain, palpitations, shortness of breath, dyspnea on exertion, cough, sore throat, fevers, chills, sweats, nausea, vomiting, diarrhea , constipation, abdominal pain, pelvic pain, blood in urine or stool, dysuria, urinary frequency or urgency, lightheadedness, dizziness, headache, loss of consciousness, focal or generalized weakness, numbness or tingling in arms or right leg, generalized arthralgias or myalgias, back or neck pain, or night sweats. The review of systems is otherwise negative other than for that already noted above, and at least 10 systems have been reviewed. Physical Exam Physical Exam: The patient is awake, alert and oriented 3, well developed and well nourished, normocephalic and atraumatic, lying in bed and in no acute distress. HEENT--PERRL, EOMI, mucous membranes and oropharynx normal Neck--supple. No JVD. No bruits. Thyroid normal, trachea midline, no adenopathy. Heart--normal S1 and S2. No murmurs, rubs or gallops Lungs--clear bilaterally, no respiratory distress, no accessory muscle use. Abdomen--normal bowel sounds and soft. Nontender. Nondistended, no hernias or masses, no organomegaly. Extremities--no cyanosis or clubbing. No edema. Diminished pulses bilaterally Dermatologic--left foot status post amputation of toes and distal metatarsals with erythema, induration different stages of healing erosions Neurologic--cranial nerves II through XII grossly intact. Rheumatologic--limited exam of left lower extremity Psychiatric--normal affect. Results & Data Results & Data Vital Signs (Past 12 Hours) Vital Signs Temp Pulse Resp BP Pulse Ox O2 Del Method 01/06/24 02:23 79 01/06/24 02:12 76 16 94 01/06/24 02:00 124/62 01/06/24 02:00 124/62 01/06/24 02:00 124/62 01/06/24 02:00 76 16 93 01/06/24 01:54 75 16 92 01/06/24 01:42 74 16 91 01/06/24 01:30 116/58 L 01/06/24 01:30 116/58 L 01/06/24 01:30 76 18 90 01/06/24 01:24 85 16 91 01/06/24 01:18 87 15 91 01/06/24 01:03 82 16 91 01/06/24 01:00 128/60 01/06/24 01:00 128/60 01/06/24 00:51 79 15 91 01/06/24 00:06 79 16 93 01/06/24 00:00 138/90 01/05/24 23:57 79 16 93 01/05/24 23:54 81 17 95 01/05/24 23:42 79 16 94 01/05/24 23:30 135/71 01/05/24 23:30 135/71 01/05/24 23:30 135/71 01/05/24 23:30 82 17 93 01/05/24 23:21 26 H 01/05/24 23:06 21 91 01/05/24 23:00 125/72 01/05/24 22:45 90 16 98 01/05/24 22:30 149/90 H 01/05/24 22:30 89 18 96 01/05/24 22:27 93 H 18 97 01/05/24 22:25 Room Air 01/05/24 22:21 90 01/05/24 22:19 133/65 01/05/24 22:19 133/65 01/05/24 21:54 36.3 C L 104 H 18 143/66 H 98 Room Air Laboratory Results Laboratory Results WBC 11.07 K/ul (4.8-10.8) H 01/05/24 22:44 RBC 3.09 M/uL (4.70-6.10) L 01/05/24 22:44 Hgb 9.1 g/dl (14.0-18.0) L 01/05/24 22:44 Hct 28.0 % (42.0-52.0) L 01/05/24 22:44 MCV 90.6 fL (80.0-100.0) 01/05/24 22:44 MCH 29.4 pg (25.0-34.0) 01/05/24 22:44 MCHC 32.5 g/dL (32.0-36.0) 01/05/24 22:44 RDW Std Deviation 51.0 fL (36.4-46.3) H 01/05/24 22:44 RDW Coeff of Mayuri 15.5 % (11.5-14.5) H 01/05/24 22:44 Plt Count 397 K/uL (130-400) 01/05/24 22:44 MPV 8.9 fL (9.4-12.4) L 01/05/24 22:44 Immature Gran % (Auto) 0.6 % 01/05/24 22:44 Neut % (Auto) 79.1 % 01/05/24 22:44 Lymph % (Auto) 11.9 % 01/05/24 22:44 [place] % (Auto) 7.4 % 01/05/24 22:44 Eos % (Auto) 0.6 % 01/05/24 22:44 Baso % (Auto) 0.4 % 01/05/24 22:44 Neut # (Auto) 8.75 K/uL (1.40-6.50) H 01/05/24 22:44 Lymph # (Auto) 1.32 K/uL (1.20-3.40) 01/05/24 22:44 [place] # (Auto) 0.82 K/uL (0.11-0.59) H 01/05/24 22:44 Eos # (Auto) 0.07 K/uL (0.00-0.50) 01/05/24 22:44 Baso # (Auto) 0.04 K/uL (0.00-0.20) 01/05/24 22:44 Immature Gran # (Auto) 0.07 K/uL (0.01-0.20) 01/05/24 22:44 PT 10.6 Seconds (9.0-12.0) 01/05/24 22:44 INR 1.0 (0.9-1.1) 01/05/24 22:44 Sodium 136 mmol/L (136-145) 01/05/24 22:44 Potassium 4.3 mmol/L (3.5-5.1) 01/05/24 22:44 Chloride 105 mmol/L (98-107) 01/05/24 22:44 Carbon Dioxide 22 mmol/L (21-32) 01/05/24 22:44 Anion Gap 9 (3-11) 01/05/24 22:44 BUN 31 mg/dl (6-23) H 01/05/24 22:44 Creatinine 0.96 mg/dl (0.6-1.4) 01/05/24 22:44 Est Cr Clr Drug Dosing 88.5 ml/min 01/05/24 22:44 Est GFR ( Amer) 94.4 ml/min 01/05/24 22:44 Est GFR (Non-Af Amer) 81.5 ml/min 01/05/24 22:44 BUN/Creatinine Ratio 32.3 (10-20) H 01/05/24 22:44 Glucose 218 mg/dl (70-99(Fasting)) H 01/05/24 22:44 Lactate 1.6 mmol/L (0.4-2.0) 01/05/24 22:44 Calcium 8.8 mg/dl (8.6-10.3) 01/05/24 22:44 Magnesium 2.0 mg/dl (1.7-2.4) 01/05/24 22:44 Total Bilirubin 0.4 mg/dl (0.2-1.0) 01/05/24 22:44 Direct Bilirubin 0.1 mg/dl (0-0.2) 01/05/24 22:44 AST 11 U/L (13-39) L 01/05/24 22:44 ALT 10 U/L (7-52) 01/05/24 22:44 Alkaline Phosphatase 71 U/L (34-104) 01/05/24 22:44 Troponin I High Sens 43.0 pg/ml (0-20) H 01/06/24 00:59 Total Protein 7.4 gm/dl (6.0-8.3) 01/05/24 22:44 Albumin 3.4 gm/dl (3.4-5.0) 01/05/24 22:44 Procalcitonin 0.03 ng/ml (0-0.5) 01/05/24 22:44 Urine Color Yellow 01/06/24 04:21 Urine Appearance Clear (Clear) 01/06/24 04:21 Urine pH 6.5 (4.5-7.5) 01/06/24 04:21 Ur Specific [place] 1.014 (1.000-1.030) 01/06/24 04:21 Urine Protein Negative (Negative) 01/06/24 04:21 Urine Glucose (UA) 3+ (Negative) H 01/06/24 04:21 Urine Ketones Negative (Negative) 01/06/24 04:21 Urine Blood Negative (Negative) 01/06/24 04:21 Urine Nitrite Negative (Negative) 01/06/24 04:21 Urine Bilirubin Negative (Negative) 01/06/24 04:21 Urine Urobilinogen Negative (Negative) 01/06/24 04:21 Ur Leukocyte Esterase Negative (Negative) 01/06/24 04:21 Adenovirus (PCR) Not Detected (NotDetected) 01/05/24 22:36 B. pertussis DNA (PCR) Not Detected (NotDetected) 01/05/24 22:36 B.parapertussis DNA PCR Not Detected (NotDetected) 01/05/24 22:36 C. pneumoniae DNA (PCR) Not Detected (NotDetected) 01/05/24 22:36 Coronavirus OC43 (PCR) Not Detected (NotDetected) 01/05/24 22:36 Coronavirus HKU1 (PCR) Not Detected (NotDetected) 01/05/24 22:36 Coronavirus 229E (PCR) Not Detected (NotDetected) 01/05/24 22:36 SARS-CoV-2 (PCR) Not Detected (NotDetected) 01/05/24 22:36 Coronavirus NL63 (PCR) Not Detected (NotDetected) 01/05/24 22:36 Human Metapneumovir PCR Not Detected (NotDetected) 01/05/24 22:36 Influenza Type A (PCR) Not Detected (NotDetected) 01/05/24 22:36 Influenza Type B (PCR) Not Detected (NotDetected) 01/05/24 22:36 M. pneumoniae (PCR) Not Detected (NotDetected) 01/05/24 22:36 Parainfluenza 1 (PCR) Not Detected (NotDetected) 01/05/24 22:36 Parainfluenza 2 (PCR) Not Detected (NotDetected) 01/05/24 22:36 Parainfluenza 3 (PCR) Not Detected (NotDetected) 01/05/24 22:36 Parainfluenza 4 (PCR) Not Detected (NotDetected) 01/05/24 22:36 RSV (PCR) Not Detected (NotDetected) 01/05/24 22:36 Entero/Rhino (PCR) Not Detected (NotDetected) 01/05/24 22:[address] 01/06/24 00:00 Exam(s): CT HEAD Without Contrast EXAM: CT Head Without Intravenous Contrast CLINICAL HISTORY: Reason for exam: confusion. TECHNIQUE: Axial computed tomography images of the head/brain without intravenous contrast. CTDI is 37.51 mGy and DLP is 624.41 mGy-cm. Automated exposure control was utilized for the study. A dose lowering technique was utilized adhering to the principles of ALARA. COMPARISON: No relevant prior studies available. FINDINGS: No acute intracranial hemorrhage. No midline shift or mass effect. The territorial oneal-white matter differentiation is maintained throughout. Age-related cerebral volume loss. Periventricular and subcortical white matter hypoattenuation, consistent with chronic microangiopathy. The visualized orbits appear grossly unremarkable. The calvarium is intact. Opacified RIGHT maxillary sinus. IMPRESSION: No acute intracranial hemorrhage, midline shift, or mass effect. Electronically signed by: Alvin Leo MD 01/06/24 01:[address] 01/06/24 00:00 Exam(s): CT EXTREMITY LEFT LOWER Without Contrast EXAM: CT Left Lower Extremity Without Intravenous Contrast CLINICAL HISTORY: Reason for exam: LLE pain; hx of gangrene. TECHNIQUE: Axial computed tomography images of the left lower extremity without intravenous contrast. CTDI is 6 mGy and DLP is 351.55 mGy-cm. Automated exposure control was utilized for the study. A dose lowering technique was utilized adhering to the principles of ALARA. COMPARISON: No relevant prior studies available. FINDINGS: Bones/joints: Unremarkable. No acute fracture. No dislocation. No CT evidence of osteomyelitis of the tibia or fibula. Soft tissues: Circumferential subcutaneous edema, concerning for cellulitis. Skin coral along the medial aspect of the calf, correlate with surgical history. No subcutaneous fluid collection, abscess, or air. Vasculature: Popliteal graft is noted. Evaluation limited without contrast. IMPRESSION: 1. No subcutaneous fluid collection, abscess, or air. 2. Circumferential subcutaneous edema, concerning for cellulitis. Electronically signed by: Alvin Leo MD 01/06/24 03:[address] 01/06/24 00:13 Exam(s): CT LEFT FOOT Without Contrast EXAM: CT Left Lower Extremity Without Intravenous Contrast, Foot CLINICAL HISTORY: Reason for exam: LLE pain; hx of gangrene. TECHNIQUE: Axial computed tomography images of the left foot without intravenous contrast. CTDI is 6 mGy and DLP is 351 mGy-cm. Automated exposure control was utilized for the study. A dose lowering technique was utilized adhering to the principles of ALARA. COMPARISON: No relevant prior studies available. FINDINGS: Bones/joints: If there is concern for osteomyelitis, recommend MRI. 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 No acute fracture. No dislocation. Soft tissues: Skin thickening and subcutaneous edema of the soft tissue stump, for which cellulitis should be clinically excluded. No drainable fluid collection or abscess. No subcutaneous air. No radiopaque foreign body. 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 Skin thickening and subcutaneous edema of the soft tissue stump, for which cellulitis should be clinically excluded. No drainable fluid collection or abscess. No subcutaneous air. If there is concern for osteomyelitis, recommend MRI. Electronically signed by: Alvin Leo MD 01/06/24 02:47 AM Duplex Scan Lower Extremity Artery 01/06/24 02:35 Exam(s): US ARTERIAL LEFT LOWER EXTREMITY EXAM: US Duplex Left Lower Extremity Arteries CLINICAL HISTORY: Reason for exam: LLE pain; no palpable pulses. TECHNIQUE: Real-time duplex ultrasound scan of the left lower extremity arteries integrating B-mode two-dimensional vascular structure, Doppler spectral analysis and color flow Doppler imaging. COMPARISON: None FINDINGS: Left common femoral artery: No acute findings. No occlusion or significant stenosis on color flow and spectral Doppler imaging. Normal waveform. Left superficial femoral artery: Probable stent in the left superficial femoral artery which appears occluded. Left popliteal artery: Elevated flow velocity in the proximal left popliteal artery, measuring up to 215.1 cm/s. Decreased monophasic flow within the mid left popliteal artery. Reversed flow in the distal left popliteal artery. Left calf/foot arteries. Monophasic flow in the proximal left peroneal artery. Occluded mid and distal left peroneal artery. Occluded proximal and mid left anterior tibial artery. Diminished monophasic flow in the left distal anterior tibial artery. Diminished monophasic flow in the left dorsalis pedis artery. Diminished monophasic flow in the left posterior tibial artery. Soft tissues: Unremarkable. Lymph nodes: Nonspecific mildly prominent left inguinal lymph nodes. Other: Irregular heart rhythm noted. Occluded bypass graft, which probably extension the proximal left superficial femoral artery to the proximal left posterior tibial artery. Incidental finding of occlusive thrombus in the left peroneal veins and one of the left posterior tibial veins. IMPRESSION: 1. Probable stent in the left superficial femoral artery which appears occluded. 2. Occluded bypass graft, which probably extension the proximal left superficial femoral artery to the proximal left posterior tibial artery. 3. Incidental finding of occlusive thrombus in the left peroneal veins and one of the left posterior tibial veins. 4. Elevated flow velocity in the proximal left popliteal artery, suggesting 50-75% stenosis. Monophasic diminished flow and occlusions in the left calf arteries as described above. Electronically signed by: Lin Callejas M.D. 01/06/24 04:44 AM Code Status & VTE Plan Code Status Full code VTE Prophylaxis Plan VTE Prophylaxis will be ordered: Yes PG Care Time/CCT Total # of Minutes Spent Total Time Spent with Patient: Total time spent is greater than 50% in coordination of care (as documented) at patient's floor/unit and/or counseling patient: Coding Level of Care Code 43856 INT INP/OBS CARE 3/75MIN Diagnoses Diabetic infection of left foot E11.628; L08.9 Gangrene of left foot I96 Peripheral arterial disease I73.9 Pseudomonas aeruginosa infection A49.8 Bacteroides fragilis infection A49.8 Hypertension I10 CAD (coronary artery disease) I25.10 Diabetes mellitus E11.9 HFrEF (heart failure with reduced ejection fraction) I50.20 Presence of combination internal cardiac defibrillator (ICD) and pacemaker Z95.810
[2024-01-06] MEDS ORDERED: GLUCOSE 40% GEL 15 GM TUBE PO PRN (04:29)
[2024-01-06] MEDS ORDERED: NITROGLYCERIN SL 0.4 MG/TAB TAB SL PRN (04:29)
[2024-01-06] MEDS ORDERED: CARBOHYDRATES FOR HYPOGLYCEMIA PO PRN (04:29)
[2024-01-06] MEDS ORDERED: GLUCOSE 10 TAB/TUBE PO PRN (04:29)
[2024-01-06] MEDS ORDERED: ONDANSETRON INJ 2 MG/ML 2 ML VIAL IV PRN (04:29)
[2024-01-06] MEDS ORDERED: GLUCAGON FOR INJ 1 MG VIAL SQ PRN (04:29)
[2024-01-06] MEDS ORDERED: VANCOMYCIN CONSULT ACTIVE PRN (04:29)
[2024-01-06] MEDS ORDERED: DEXTROSE 50% 50 ML SYRINGE IV PRN (04:29)
[2024-01-06 04:31] LABS: Appearance Urine Clear (Clear); Bilirubin Urine Negative (Negative); Blood Urine Negative (Negative); Color Urine Yellow; Glucose Urine UA 3+ (Negative); Ketones Urine Negative (Negative); Leukocyte Esterase Urine Negative (Negative); Nitrite Urine Negative (Negative); Protein Urine Negative (Negative); Specific Gravity Urine 1.014 (1.000-1.030); Urobilinogen Urine Negative (Negative); pH Urine 6.5 (4.5-7.5)
--- NOTE | 2024-01-06 04:44 | Ultrasound Report ---
Exam(s): US ARTERIAL LEFT LOWER EXTREMITY EXAM: US Duplex Left Lower Extremity Arteries CLINICAL HISTORY: Reason for exam: LLE pain; no palpable pulses. TECHNIQUE: Real-time duplex ultrasound scan of the left lower extremity arteries integrating B-mode two-dimensional vascular structure, Doppler spectral analysis and color flow Doppler imaging. COMPARISON: None FINDINGS: Left common femoral artery: No acute findings. No occlusion or significant stenosis on color flow and spectral Doppler imaging. Normal waveform. Left superficial femoral artery: Probable stent in the left superficial femoral artery which appears occluded. Left popliteal artery: Elevated flow velocity in the proximal left popliteal artery, measuring up to 215.1 cm/s. Decreased monophasic flow within the mid left popliteal artery. Reversed flow in the distal left popliteal artery. Left calf/foot arteries. Monophasic flow in the proximal left peroneal artery. Occluded mid and distal left peroneal artery. Occluded proximal and mid left anterior tibial artery. Diminished monophasic flow in the left distal anterior tibial artery. Diminished monophasic flow in the left dorsalis pedis artery. Diminished monophasic flow in the left posterior tibial artery. Soft tissues: Unremarkable. Lymph nodes: Nonspecific mildly prominent left inguinal lymph nodes. Other: Irregular heart rhythm noted. Occluded bypass graft, which probably extension the proximal left superficial femoral artery to the proximal left posterior tibial artery. Incidental finding of occlusive thrombus in the left peroneal veins and one of the left posterior tibial veins. IMPRESSION: 1. Probable stent in the left superficial femoral artery which appears occluded. 2. Occluded bypass graft, which probably extension the proximal left superficial femoral artery to the proximal left posterior tibial artery. 3. Incidental finding of occlusive thrombus in the left peroneal veins and one of the left posterior tibial veins. 4. Elevated flow velocity in the proximal left popliteal artery, suggesting 50-75% stenosis. Monophasic diminished flow and occlusions in the left calf arteries as described above. Electronically signed by: Lin Callejas M.D. 01/06/24 04:44 AM
[2024-01-06] MEDS ORDERED: Heparin IV Adult Wt-Based Standard *NO* INITIAL Bolus Protocol IV STA (05:25)
[2024-01-06] MEDS: HEPARIN SODIUM/DEXTROSE 25,000 UNITS/500 ML BAG IV SCH (05:53)
[2024-01-06] MEDS: PIPERACILLIN/TAZOBACTAM 4.5 GM/100 ML BAG IV SCH (05:53)
[2024-01-06 06:29] LABS: Basophils # (auto) 0.03 K/uL (0.00-0.20); Basophils % (auto) 0.3 %; Eosinophils # (auto) 0.15 K/uL (0.00-0.50); Eosinophils % (auto) 1.5 %; Hematocrit (blood only) 29.7 % (42.0-52.0); Hemoglobin 9.6 g/dl (14.0-18.0); Immature Granulocytes # (auto) 0.06 K/uL (0.01-0.20); Immature Granulocytes % (auto) 0.6 %; Lymphocytes # (auto) 1.54 K/uL (1.20-3.40); Lymphocytes % (auto) 15.7 %; Mean Corpuscular Hemoglobin 29.5 pg (25.0-34.0); Mean Corpuscular Hgb Conc 32.3 g/dL (32.0-36.0); Mean Corpuscular Volume 91.4 fL (80.0-100.0); Mean Platelet Volume 8.6 fL (9.4-12.4); Monocytes # (auto) 0.86 K/uL (0.11-0.59); Monocytes % (auto) 8.8 %; Neutrophils # (auto) 7.17 K/uL (1.40-6.50); Neutrophils % (auto) 73.1 %; Platelet Count 384 K/uL (130-400); RDW Coefficient of Variation 15.4 % (11.5-14.5); RDW Standard Deviation 51.3 fL (36.4-46.3); Red Blood Count 3.25 M/uL (4.70-6.10); White Blood Count 9.81 K/ul (4.8-10.8)
[2024-01-06] MEDS: oxyCODONE HCL IR 5 MG TAB (IMMEDIATE RELEASE) PO PRN (06:42)
[2024-01-06 06:49] LABS: Albumin Globulin Ratio 0.9 (0.9-2); Albumin Level 3.4 gm/dl (3.4-5.0); BUN Creatinine Ratio 28.6 (10-20); Bilirubin,Total 0.5 mg/dl (0.2-1.0); Calcium 8.9 mg/dl (8.6-10.3); Creatinine Clr Calc Pharmacy 101.1 ml/min; Est GFR (Non-African American) 90.6 ml/min; Globulin 3.9 gm/dl (2.5-4.0); Potassium 4.3 mmol/L (3.5-5.1); Total Protein 7.3 gm/dl (6.0-8.3)
--- NOTE | 2024-01-06 06:52 | XRay Report ---
XR chest 1V portable CLINICAL HISTORY: Sepsis TECHNIQUE: Single frontal radiograph of the chest was obtained. Comparison: Comparison is made to chest radiograph 12/13/2023 FINDINGS: Median sternotomy wires are unchanged. These include fractured inferior wire is. A defibrillator is s een. Cardiomegaly is noted. The aortic arch is calcified. The lungs are clear. No evidence of pleural effusion or pneumothorax. IMPRESSION: No acute abnormalities and in particular no radiographic evidence of pneumonia. ACT 112: Negative or not required by law. Electronically signed by: Lauro Zapata M.D. 01/06/2024 6:51 AM
--- NOTE | 2024-01-06 07:20 | XRay Report ---
XR foot LT min 3V routine CLINICAL HISTORY: L foot pain TECHNIQUE: 3 views of the left foot were obtained. Comparison: Comparison is made to radiograph 12/10/2023 FINDINGS: Mid metatarsal resection is seen. No definite erosions. Degenerative changes are seen. Soft tissue sw elling is seen about the foot. IMPRESSION: Soft tissue swelling is seen. No radiographic evidence of osteomyelitis. If clinical concern remains, MRI is a more sensitive modality. ACT 112: Negative or not required by law. Electronically signed by: Lauro Zapata M.D. 01/06/2024 7:19 AM
--- NOTE | 2024-01-06 07:39 | XRay Report ---
LEFT TIBIA/FIBULA 2 VIEWS HISTORY: L leg pain COMPARISON: None. FINDINGS: There is no fracture or dislocation. Diffuse soft tissue edema/swelling. Medial skin staple s are noted. Multiple surgical clips are present. There is a popliteal stent in place. No bony destru ctive changes to suggest an osteomyelitis. No soft tissue gas. Old avulsion injuries at the ankle are noted. No radiopaque foreign bodies. There is a 13 mm vertical cortical lucency within the mid shaft of the anterior tibial cortex. This is best seen on the lateral view. IMPRESSION: 1. No fracture or dislocation within the left lower leg. 2. Diffuse soft tissue edema/swelling. 3. An indeterminate 13 mm cortical vertical lucency within the mid shaft of the left tibial anterior cortex. This does not appear to represent a fracture and is stable compared to a 2022 CT. Therefore, this is of doubtful clinical significance. ACT 112: Negative or not required by law. Electronically signed by: Sha Michael M.D. 01/06/2024 7:38 AM
--- NOTE | 2024-01-06 08:21 | Electrocardiogram Report ---
Test Reason : Blood Pressure : */* mmHG Vent. Rate : 83 BPM Atrial Rate : 83 BPM P-R Int : 152 ms QRS Dur : 168 ms QT Int : 454 ms P-R-T Axes : 73 165 132 degrees QTcB Int : 533 ms Atrial-sensed ventricular-paced rhythm Biventricular pacemaker detected Abnormal ECG When compared with ECG of 22-Apr-2023 10:49, Vent. rate has increased by 14 bpm Confirmed by Daniel Andrade ([id number]) on 01/06/2024 8:21:07 AM Referred By: REFERRED SELF Confirmed By: Daniel Andrade
[2024-01-06] MEDS ORDERED: HYDROmorphone INJ 0.5 MG/0.5 ML SYR IV PRN ×2 (08:27→20:46)
[2024-01-06 08:28] LABS: Estimated Average Glucose 169 mg/dl; Hemoglobin A1C 7.5 % (4.5-5.6)
[2024-01-06] MEDS: EZETIMIBE 10 MG TAB PO SCH (08:31)
[2024-01-06] MEDS: ACETAMINOPHEN 325 MG TAB PO SCH (08:31)
[2024-01-06] MEDS: CLOPIDOGREL BISULFATE 75 MG TAB PO SCH (08:31)
[2024-01-06] MEDS: MAGNESIUM OXIDE 400 MG TAB PO SCH (08:32)
[2024-01-06] MEDS: allopurinoL 300 MG TAB PO SCH (08:32)
[2024-01-06] MEDS: VALSARTAN/SACUBITRIL 26/24MG TAB PO SCH (08:32)
[2024-01-06] MEDS: RANOLAZINE 500 MG ER TAB PO SCH (08:32)
[2024-01-06] MEDS: GABAPENTIN 100 MG CAP PO SCH (08:32)
[2024-01-06] MEDS: PANTOprazole 40 MG TAB PO SCH (08:32)
[2024-01-06] MEDS: allopurinoL 100 MG TAB PO SCH (08:32)
[2024-01-06] MEDS: ISOSORBIDE MONO EXTENDED REL 60 MG TABCR PO SCH (08:32)
[2024-01-06] MEDS: FERROUS GLUCONATE 324 MG TAB PO SCH (08:33)
[2024-01-06] MEDS: HYDROmorphone INJ 1 MG/ML SYRINGE IV PRN (08:54)
[2024-01-06] MEDS ORDERED: APIXABAN 5 MG TABLET PO SCH (09:00)
[2024-01-06] MEDS ORDERED: PIPERACILLIN/TAZOBACTAM 4.5 GM/100 ML BAG IV SCH (09:00)
[2024-01-06] MEDS: INSULIN ASPART PER UNIT CHARGE SC SCH (09:06)
--- NOTE | 2024-01-06 09:15 | Infectious Disease Consult ---
Date of Consultation January 06, 2024 Assessment & Plan (1) Gangrene of left foot: (2) Peripheral arterial disease: (3) Cellulitis of left leg: Plan Problems: #LLE gangrene: awaiting BKA 01/11/24 #PAD s/p LLE bypass graft (12/15/23) c/b occlusion #L foot OM s/p TMA (12/10/23): cx with Pseudomonas, B fragilis, Finegoldia magna Micro: 01/04 BCx x1: pending 12/10/23 L second toe bone cx: Pseudomonas (haines-S), Bacteroides fragilis, Finegoldia magna Abx: Dapto 01/04 Clinda 01/04 Pip-tazo 01/04 - present Vanc 01/05 - present Impression: 68 yo M with DM, CAD s/p CABG, HFrEF, ICD, hx UGIB, PAD, L foot osteomyelitis s/p TMA (12/10/23), LLE femoral artery to peroneal artery cadaver vein bypass and bovine patchy angioplasty of peroneal artery (12/15/23) c/b occlusion who presented on 01/04 with worsening LLE gangrene and confusion, admitted with plan for L BKA 01/11/24. On presentation, pt was afebrile with WBC 11.07. CT LLE showed circumferential subcutaneous edema c/f cellulitis, no subcutaneous fluid collection, abscess or air. LLE arterial duplex US showed probable stent in L superficial femoral artery which appears occluded, occluded bypass graft, incidental finding of occlusive thrombus in L peroneal veins and one of L posterior tibial veins, 50-75% stenosis in proximal L popliteal artery. Vascular surgeon Dr. Layne is away on vacation, so ED spoke with vascular surgery at [facility], who recommended the pt be admitted to [facility] for IV antibiotics in preparation for planned amputation 01/11/24. Pt is on vanc, Zosyn. Recommendations: - Can continue vanc, Zosyn for LLE gangrene - Awaiting L BKA on 01/11/24--anticipate that with source control through surgery, pt will only need 24-48 hrs of post-op antibiotics Will continue to follow. Consultation Information Consultation was provided via telemedicine using two-way real-time interactive telecommunication between the patient and the telemedicine provider. For the duration of the visit, the provider was performing the assessment from a different facility than the patient. This includesuse of bluetooth stethoscope forauscultationperformed by the telepresenter that the telemedicine provider can hear if described in the physical exam. Survey Research Teacher contact information: Please call [facility] . (Phone Number For Physician Use Only) After establishing a telemedicine visit, patient was: Patient was verified with two unique identifiers, Patient/authorized rep acknowledged consent and understanding and Gave permission to continue telehealth session Time Spent with Patient: Initial => 40 min History of Present Illness Reason for Consultation: Occluded bypass graft, LLE cellulitis Attending Physician: Erick Murdock MD History of Present Illness 68 yo M with DM, CAD s/p CABG, HFrEF, ICD, hx UGIB, PAD, L foot osteomyelitis s/p TMA (12/10/23), LLE femoral artery to peroneal artery cadaver vein bypass and bovine patchy angioplasty of peroneal artery (12/15/23) c/b occlusion who presented on 01/04 with worsening LLE gangrene and confusion. On presentation, pt was afebrile, VSS. Labs showed WBC 11.07, RVP negative. CT LLE showed circumferential subcutaneous edema c/f cellulitis, no subcutaneous fluid collection, abscess or air. LLE arterial duplex US showed probable stent in L superficial femoral artery which appears occluded, occluded bypass graft, incidental finding of occlusive thrombus in L peroneal veins and one of L posterior tibial veins, 50-75% stenosis in proximal L popliteal artery. Vascular surgeon Dr. Layne is away on vacation, so ED spoke with vascular surgery at [facility], who recommended the pt be admitted to [facility] for IV antibiotics in preparation for planned amputation 01/11/24. Pt is on vanc, Zosyn. Pt reports feeling miserable due to pain in his LLE. Allergies Allergy/AdvReac Type Severity Reaction Status Date / Time No Known Allergies Allergy Verified 01/05/24 10:33 Home Medications Medication Instructions Recorded Confirmed Type pen needle, diabetic 31 gauge x #100 ea 11/08/22 01/06/24 Rx 5/16" (BD Ultra-Fine Short Pen Needle) metoprolol succinate 25 mg 25 mg PO HS 04/20/23 01/06/24 History tablet,extended release 24 hr nitroglycerin 0.4 mg sublingual 0.4 mg sublingual Q5M PRN Pain #14 06/08/23 01/06/24 Rx tablet tabs empagliflozin 25 mg tablet 25 mg PO QAM 07/26/23 01/06/24 History (Jardiance) ezetimibe 10 mg tablet 10 mg PO QAM 07/26/23 01/06/24 History ferrous gluconate 324 mg (37.5 mg 324 mg PO QAM 07/26/23 01/06/24 History iron) tablet magnesium oxide 400 mg PO QAM 07/26/23 01/06/24 History isosorbide mononitrate 120 mg 120 mg PO QAM #90 tabs 08/10/23 01/06/24 Rx tablet,extended release 24 hr allopurinol 100 mg tablet 100 mg PO QAM #90 tabs 08/24/23 01/06/24 Rx allopurinol 300 mg tablet 600 mg (2 x 300 mg) PO QAM #180 08/24/23 01/06/24 Rx tabs apixaban 5 mg tablet (Eliquis) 5 mg PO BID #180 tabs 08/24/23 01/06/24 Rx furosemide 40 mg tablet 40 mg PO QAM #90 tabs 08/24/23 01/06/24 Rx sacubitril 24 mg-valsartan 26 mg 1 tab PO BID #60 tabs 08/27/23 01/06/24 Rx tablet (Entresto) doxepin 6 mg tablet 6 mg PO HS #60 tabs 09/13/23 01/06/24 Rx ranolazine 1,000 mg 1,000 mg PO BID #180 tabs 09/21/23 01/06/24 Rx tablet,extended release,12 hr acetaminophen 650 mg 1,300 mg (2 x 650 mg) PO Q12H #120 09/30/23 01/06/24 Rx tablet,extended release (Tylenol tabs Arthritis Pain) atorvastatin 80 mg tablet 80 mg PO HS #90 tabs 10/06/23 01/06/24 Rx pantoprazole 40 mg tablet,delayed 40 mg PO BID #180 tabs 10/21/23 01/06/24 Rx release clopidogrel 75 mg tablet 75 mg PO QAM #90 tabs 11/03/23 01/06/24 Rx flash glucose sensor (FreeStyle #2 ea 12/09/23 01/06/24 Rx Sandy 2 Sensor kit) insulin glargine 100 unit/mL (3 50 - 55 unit (0.5 - 0.55 mL) 12/13/23 01/06/24 Rx mL) subcutaneous pen (Lantus subcut PM #45 mL Solostar U-100 Insulin) gabapentin 100 mg capsule 100 mg PO TID #90 caps 12/29/23 01/06/24 Rx oxycodone 10 mg tablet 10 mg PO Q6 PRN Pain 12/29/23 01/06/24 History evolocumab 140 mg/mL subcutaneous 140 mg subcut .EVERY 2 WEEKS 01/06/24 01/06/24 History pen injector (Repatha SureClick) trazodone 100 mg tablet 150 mg PO HS 01/06/24 01/06/24 History Patient History Medical History (Updated 01/06/24 @ 05:19 by Pradeep Bailey MD) Hx of upper gastrointestinal hemorrhage (05/2023) Peptic ulcer disease Ischemic cardiomyopathy 03/2023 EF 24% Inflammatory arthritis Hypercholesterolemia Hx of gout Intermittent claudication History of anemia (05/2023) due to blood loss Bilateral carotid bruits ASCVD (arteriosclerotic cardiovascular disease) Arthritis History of DVT of lower extremity (04/2023) right leg -unknown cause Adenomatous polyps hx Surgical History (Updated 01/05/24 @ 11:40 by Milli Rivera PA-C) Hx of colonoscopy with polypectomy History of esophagogastroduodenoscopy (EGD) S/P insertion of iliac artery stent x2; 05/2011- right illiac- x stent; 2018, [facility], x1 stent History of implantable cardioverter-defibrillator (ICD) insertion w/pacemaker; 05/2021, [facility], [facility]; f/u [facility] Hx of vascular surgery (04/2023) 04/2023 "replaced the entire artery in lt leg with an artificial one", [facility] 12/15/23, [facility], left leg cadaver vein placed Status post angioplasty with stent (07/27/22) [facility] x5 stents lt leg, w/ dr. 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, saw 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; done @ [facility] Family History Father , age 72 Diabetes Colonic polyp Hypertension Kidney disease Heart disease Dyslipidemia Coronary heart disease, Onset Age: 63 CABG Mother Lung disease Lung cancer, Onset Age: 70 small cell 71 Denies family history of Ovarian cancer Prostate cancer Deep vein thrombosis Alzheimer disease Dementia Depression Myocardial infarction Breast cancer Colorectal cancer Pulmonary embolism Stroke Asthma Social History Smoking Status: Current every day smoker Tobacco Type: Cigarettes Age Started Using Tobacco: 17; Cigarettes Per Day: quit 04/2023 (1/2 ppd); Second Hand Exposure: No; Do You Dip or Chew Tobacco: No; Hx Alcohol Use: Yes Alcohol type: beer Alcohol Intake Frequency: Monthly or Less Alcohol Intake Frequency Comment: 4-5 beers monthly Hx Substance Use: No Preferred Language: Romanian Communication Ability: Effective Visual Impairment: Limited Hearing Ability: Use of Hearing Aid Scroll Shear Operator Required: No Beliefs That Will Affect Care: None marital status: Current Living Situation: Spouse Current Living Situation Comment: Demetrice and daughter current occupational status: disabled How many Children do You have: 4 Feels Safe at Home: Yes Childhood Exposure to Second-Hand Smoke: Yes Diet: regular caffeine: Yes during the past year weight has: remained stable Dental Care, Regularly: No Physical Activity Frequency: Does not Exercise Seatbelt Use: always Sunscreen Use: Yes Do you think of yourself as: straight/heterosexual Gender Identity: Male Assistive Devices: Cane, Denture - Lower, Glasses and Hearing Aid - Bilateral Review of System A complete ROS was performed and is negative except as mentioned in the HPI. Physical Exam Physical Exam: GEN: sitting up in NAD. RESP: No increased work of breathing SKIN: LLE with bandage in place over incision over the delarosa, with slight serous drainage. Blackened areas of L foot with peeling skin and serous drainage. Erythema of L foot extending up to calf. NEURO: Alert and oriented. Answers all questions appropriately. Speech not slurred. PSYCH: Normal mood, affect appropriate. Results & Data Vital Signs (Past 12 Hours) Vital Signs Temp Pulse Pulse Resp BP BP Pulse Ox 01/06/24 08:27 97 H 18 142/82 H 95 01/06/24 07:11 89 01/06/24 02:23 79 01/06/24 02:12 76 16 94 01/06/24 02:00 124/62 01/06/24 02:00 124/62 01/06/24 02:00 124/62 01/06/24 02:00 76 16 93 01/06/24 01:54 75 16 92 01/06/24 01:42 74 16 91 01/06/24 01:30 116/58 L 01/06/24 01:30 116/58 L 01/06/24 01:30 76 18 90 01/06/24 01:24 85 16 91 01/06/24 01:18 87 15 91 01/06/24 01:03 82 16 91 01/06/24 01:00 128/60 01/06/24 01:00 128/60 01/06/24 00:51 79 15 91 01/06/24 00:06 79 16 93 01/06/24 00:00 138/90 01/05/24 23:57 79 16 93 01/05/24 23:54 81 17 95 01/05/24 23:42 79 16 94 01/05/24 23:30 135/71 01/05/24 23:30 135/71 01/05/24 23:30 135/71 01/05/24 23:30 82 17 93 01/05/24 23:21 26 H 01/05/24 23:06 21 91 01/05/24 23:00 125/72 01/05/24 22:45 90 16 98 01/05/24 22:30 149/90 H 01/05/24 22:30 89 18 96 01/05/24 22:27 93 H 18 97 01/05/24 22:25 01/05/24 22:21 90 01/05/24 22:19 133/65 01/05/24 22:19 133/65 01/05/24 21:54 36.3 C L 104 H 18 143/66 H 98 O2 Del Method 01/06/24 08:27 Room Air 01/06/24 07:11 01/06/24 02:23 01/06/24 02:12 01/06/24 02:00 01/06/24 02:00 01/06/24 02:00 01/06/24 02:00 01/06/24 01:54 01/06/24 01:42 01/06/24 01:30 01/06/24 01:30 01/06/24 01:30 01/06/24 01:24 01/06/24 01:18 01/06/24 01:03 01/06/24 01:00 01/06/24 01:00 01/06/24 00:51 01/06/24 00:06 01/06/24 00:00 01/05/24 23:57 01/05/24 23:54 01/05/24 23:42 01/05/24 23:30 01/05/24 23:30 01/05/24 23:30 01/05/24 23:30 01/05/24 23:21 01/05/24 23:06 01/05/24 23:00 01/05/24 22:45 01/05/24 22:30 01/05/24 22:30 01/05/24 22:27 01/05/24 22:25 Room Air 01/05/24 22:21 01/05/24 22:19 01/05/24 22:19 01/05/24 21:54 Room Air Laboratory Results Short CBC 01/05/24 01/06/24 Range/Units 22:44 06:13 WBC 11.07 H 9.81 (4.8-10.8) K/ul Hgb 9.1 L 9.6 L (14.0-18.0) g/dl Hct 28.0 L 29.7 L (42.0-52.0) % Plt Count 397 384 (130-400) K/uL BMP 01/05/24 01/06/24 22:44 06:13 Sodium 136 139 Potassium 4.3 4.3 Chloride 105 109 H Carbon Dioxide 22 23 BUN 31 H 24 H Creatinine 0.96 0.84 Glucose 218 H 145 H Calcium 8.8 8.9 Liver Function 01/05/24 01/06/24 Range/Units 22:44 06:13 Total Bilirubin 0.4 0.5 (0.2-1.0) mg/dl Direct Bilirubin 0.1 (0-0.2) mg/dl AST 11 L 10 L (13-39) U/L ALT 10 9 (7-52) U/L Alkaline Phosphatase 71 64 (34-104) U/L Albumin 3.4 3.4 (3.4-5.0) gm/dl Urine 01/06/24 Range/Units 04:21 Urine Color Yellow Urine Appearance Clear (Clear) Urine pH 6.5 (4.5-7.5) Ur Specific Wells 1.014 (1.000-1.030) Urine Protein Negative (Negative) Urine Glucose (UA) 3+ H (Negative) Diagnostic Findings Chest X-Ray 01/05/24 22:25 XR chest 1V portable CLINICAL HISTORY: Sepsis TECHNIQUE: Single frontal radiograph of the chest was obtained. Comparison: Comparison is made to chest radiograph 12/13/2023 FINDINGS: Median sternotomy wires are unchanged. These include fractured inferior wire is. A defibrillator is seen. Cardiomegaly is noted. The aortic arch is calcified. The lungs are clear. No evidence of pleural effusion or pneumothorax. IMPRESSION: No acute abnormalities and in particular no radiographic evidence of pneumonia. ACT 112: Negative or not required by law. Electronically signed by: Lauro Zapata M.D. 01/06/2024 6:51 AM Foot X-Ray 01/05/24 22:52 XR foot LT min 3V routine CLINICAL HISTORY: L foot pain TECHNIQUE: 3 views of the left foot were obtained. Comparison: Comparison is made to radiograph 12/10/2023 FINDINGS: Mid metatarsal resection is seen. No definite erosions. Degenerative changes are seen. Soft tissue swelling is seen about the foot. IMPRESSION: Soft tissue swelling is seen. No radiographic evidence of osteomyelitis. If clinical concern remains, MRI is a more sensitive modality. ACT 112: Negative or not required by law. Electronically signed by: Lauro Zapata M.D. 01/06/2024 7:19 AM Tibia/Fibula X-Ray 01/05/24 22:52 LEFT TIBIA/FIBULA 2 VIEWS HISTORY: L leg pain COMPARISON: None. FINDINGS: There is no fracture or dislocation. Diffuse soft tissue edema/swelling. Medial skin coral are noted. Multiple surgical clips are present. There is a popliteal stent in place. No bony destructive changes to suggest an osteomyelitis. No soft tissue gas. Old avulsion injuries at the ankle are noted. No radiopaque foreign bodies. There is a 13 mm vertical cortical lucency within the mid shaft of the anterior tibial cortex. This is best seen on the lateral view. IMPRESSION: 1. No fracture or dislocation within the left lower leg. 2. Diffuse soft tissue edema/swelling. 3. An indeterminate 13 mm cortical vertical lucency within the mid shaft of the left tibial anterior cortex. This does not appear to represent a fracture and is stable compared to a 2022 CT. Therefore, this is of doubtful clinical significance. ACT 112: Negative or not required by law. Electronically signed by: Sha Michael M.D. 01/06/2024 7:[address] 01/06/24 00:00 Exam(s): CT HEAD Without Contrast EXAM: CT Head Without Intravenous Contrast CLINICAL HISTORY: Reason for exam: confusion. TECHNIQUE: Axial computed tomography images of the head/brain without intravenous contrast. CTDI is 37.51 mGy and DLP is 624.41 mGy-cm. Automated exposure control was utilized for the study. A dose lowering technique was utilized adhering to the principles of ALARA. COMPARISON: No relevant prior studies available. FINDINGS: No acute intracranial hemorrhage. No midline shift or mass effect. The territorial oneal-white matter differentiation is maintained throughout. Age-related cerebral volume loss. Periventricular and subcortical white matter hypoattenuation, consistent with chronic microangiopathy. The visualized orbits appear grossly unremarkable. The calvarium is intact. Opacified RIGHT maxillary sinus. IMPRESSION: No acute intracranial hemorrhage, midline shift, or mass effect. Electronically signed by: Alvin Leo MD 01/06/24 01:[address] 01/06/24 00:00 Exam(s): CT EXTREMITY LEFT LOWER Without Contrast EXAM: CT Left Lower Extremity Without Intravenous Contrast CLINICAL HISTORY: Reason for exam: LLE pain; hx of gangrene. TECHNIQUE: Axial computed tomography images of the left lower extremity without intravenous contrast. CTDI is 6 mGy and DLP is 351.55 mGy-cm. Automated exposure control was utilized for the study. A dose lowering technique was utilized adhering to the principles of ALARA. COMPARISON: No relevant prior studies available. FINDINGS: Bones/joints: Unremarkable. No acute fracture. No dislocation. No CT evidence of osteomyelitis of the tibia or fibula. Soft tissues: Circumferential subcutaneous edema, concerning for cellulitis. Skin coral along the medial aspect of the calf, correlate with surgical history. No subcutaneous fluid collection, abscess, or air. Vasculature: Popliteal graft is noted. Evaluation limited without contrast. IMPRESSION: 1. No subcutaneous fluid collection, abscess, or air. 2. Circumferential subcutaneous edema, concerning for cellulitis. Electronically signed by: Alvin Leo MD 01/06/24 03:[address] 01/06/24 00:13 Exam(s): CT LEFT FOOT Without Contrast EXAM: CT Left Lower Extremity Without Intravenous Contrast, Foot CLINICAL HISTORY: Reason for exam: LLE pain; hx of gangrene. TECHNIQUE: Axial computed tomography images of the left foot without intravenous contrast. CTDI is 6 mGy and DLP is 351 mGy-cm. Automated exposure control was utilized for the study. A dose lowering technique was utilized adhering to the principles of ALARA. COMPARISON: No relevant prior studies available. FINDINGS: Bones/joints: If there is concern for osteomyelitis, recommend MRI. 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 No acute fracture. No dislocation. Soft tissues: Skin thickening and subcutaneous edema of the soft tissue stump, for which cellulitis should be clinically excluded. No drainable fluid collection or abscess. No subcutaneous air. No radiopaque foreign body. 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 Skin thickening and subcutaneous edema of the soft tissue stump, for which cellulitis should be clinically excluded. No drainable fluid collection or abscess. No subcutaneous air. If there is concern for osteomyelitis, recommend MRI. Electronically signed by: Alvin Leo MD 01/06/24 02:47 AM Duplex Scan Lower Extremity Artery 01/06/24 02:35 Exam(s): US ARTERIAL LEFT LOWER EXTREMITY EXAM: US Duplex Left Lower Extremity Arteries CLINICAL HISTORY: Reason for exam: LLE pain; no palpable pulses. TECHNIQUE: Real-time duplex ultrasound scan of the left lower extremity arteries integrating B-mode two-dimensional vascular structure, Doppler spectral analysis and color flow Doppler imaging. COMPARISON: None FINDINGS: Left common femoral artery: No acute findings. No occlusion or significant stenosis on color flow and spectral Doppler imaging. Normal waveform. Left superficial femoral artery: Probable stent in the left superficial femoral artery which appears occluded. Left popliteal artery: Elevated flow velocity in the proximal left popliteal artery, measuring up to 215.1 cm/s. Decreased monophasic flow within the mid left popliteal artery. Reversed flow in the distal left popliteal artery. Left calf/foot arteries. Monophasic flow in the proximal left peroneal artery. Occluded mid and distal left peroneal artery. Occluded proximal and mid left anterior tibial artery. Diminished monophasic flow in the left distal anterior tibial artery. Diminished monophasic flow in the left dorsalis pedis artery. Diminished monophasic flow in the left posterior tibial artery. Soft tissues: Unremarkable. Lymph nodes: Nonspecific mildly prominent left inguinal lymph nodes. Other: Irregular heart rhythm noted. Occluded bypass graft, which probably extension the proximal left superficial femoral artery to the proximal left posterior tibial artery. Incidental finding of occlusive thrombus in the left peroneal veins and one of the left posterior tibial veins. IMPRESSION: 1. Probable stent in the left superficial femoral artery which appears occluded. 2. Occluded bypass graft, which probably extension the proximal left superficial femoral artery to the proximal left posterior tibial artery. 3. Incidental finding of occlusive thrombus in the left peroneal veins and one of the left posterior tibial veins. 4. Elevated flow velocity in the proximal left popliteal artery, suggesting 50-75% stenosis. Monophasic diminished flow and occlusions in the left calf arteries as described above. Electronically signed by: Lin Callejas M.D. 01/06/24 04:44 AM Medications Administered Current Inpatient Medications Acetaminophen (Acetaminophen 325 Mg Tab) 1,300 mg PO Q12H [facility] Stop: 02/05/24 08:59 Last Admin: 01/06/24 08:31 Dose: 1,300 mg Allopurinol (Allopurinol 100 Mg Tab) 100 mg PO QAM JAKOB Stop: 02/05/24 08:59 Last Admin: 01/06/24 08:32 Dose: 100 mg Allopurinol (Allopurinol 300 Mg Tab) 600 mg PO QAM JAKOB Stop: 02/05/24 08:59 Last Admin: 01/06/24 08:32 Dose: 600 mg Atorvastatin Calcium (Atorvastatin 40 Mg Tab) 80 mg PO [facility] Stop: 02/05/24 20:59 Clopidogrel Bisulfate (Clopidogrel Bisulfate 75 Mg Tab) 75 mg PO QAM [facility] Stop: 02/05/24 08:59 Last Admin: 01/06/24 08:31 Dose: 75 mg Dextrose (Dextrose 50% 50 Ml Syringe) 25 - 50 ml IV UD PRN; Protocol PRN Reason: Hypoglycemia Protocol Stop: 02/05/24 04:28 Doxepin HCl (Doxepin Hcl 10 Mg Capsule) 10 mg PO [facility] Stop: 02/05/24 20:59 Ezetimibe (Ezetimibe 10 Mg Tab) 10 mg PO [facility] Stop: 02/05/24 08:59 Last Admin: 01/06/24 08:31 Dose: 10 mg Ferrous Gluconate (Ferrous Gluconate 324 Mg Tab) 324 mg PO [facility] Stop: 02/05/24 08:59 Last Admin: 01/06/24 08:33 Dose: 324 mg Gabapentin (Gabapentin 100 Mg Cap) 100 mg PO TID [facility] Stop: 02/05/24 08:59 Last Admin: 01/06/24 08:32 Dose: 100 mg Glucagon (Glucagon For Inj 1 Mg Vial) 1 mg SQ UD PRN; Protocol PRN Reason: Hypoglycemia Protocol Stop: 02/05/24 04:28 Glucose (Glucose 40% Gel 15 Gm Tube) 15 - 30 gm PO UD PRN; Protocol PRN Reason: Hypoglycemia Protocol Stop: 02/05/24 04:28 Glucose (Glucose 10 Tab/Tube) 4 - 8 tab PO UD PRN; Protocol PRN Reason: Hypoglycemia Treatment Stop: 02/05/24 04:28 Hydromorphone HCl (Hydromorphone Inj 0.5 Mg/0.5 Ml Syr) 0.5 mg IV Q6H PRN PRN Reason: Moderate Pain (Scale 4, 5, 6) Stop: 01/20/24 08:26 Hydromorphone HCl (Hydromorphone Inj 1 Mg/Ml Syringe) 1 mg IV Q6H PRN PRN Reason: Severe Pain (Scale 7, 8, 9,10) Stop: 01/20/24 08:32 Last Admin: 01/06/24 08:54 Dose: 1 mg Piperacillin Sod/Tazobactam Sod (Zosyn) 4.5 gm in 100 mls @ 25 mls/hr IV Q8H [facility] Stop: 01/13/24 05:59 Last Admin: 01/06/24 05:53 Dose: 25 mls/hr Heparin Sodium/Dextrose (Heparin Sodium/Dextrose) 25,000 units in 500 mls @ 30 mls/hr IV .[id number] [facility]; Protocol Stop: 02/05/24 05:44 Last Admin: 01/06/24 05:53 Dose: 1,500 units/hr, 30 mls/hr Vancomycin HCl 2,000 mg/ (Sodium Chloride) 540 mls @ 200 mls/hr IV TODAY@1000 [facility] Stop: 01/06/24 14:00 Insulin Aspart (Insulin Aspart Per Unit Charge) 0 units SC ACHS [facility] Stop: 02/05/24 07:29 Last Admin: 01/06/24 09:06 Dose: 4 units Insulin Glargine (Lantus Per Unit Charge) 40 units SC PM [facility] Stop: 02/05/24 20:59 Isosorbide Mononitrate (Isosorbide [place] Extended Rel 60 Mg Tabcr) 120 mg PO QAM [facility] Stop: 02/05/24 08:59 Last Admin: 01/06/24 08:32 Dose: 120 mg Magnesium Oxide (Magnesium Oxide 400 Mg Tab) 400 mg PO QAM [facility] Stop: 02/05/24 08:59 Last Admin: 01/06/24 08:32 Dose: 400 mg Metoprolol Succinate (Metoprolol Succ 25mg Ext Rel Tab) 25 mg PO HS [facility] Stop: 02/05/24 20:59 Miscellaneous (Carbohydrates For Hypoglycemia ) 15 - 30 gm PO UD PRN PRN Reason: Hypoglycemia Protocol Stop: 02/05/24 04:28 Miscellaneous Information (Vancomycin Consult Active) 1 each N/A UD PRN PRN Reason: Consult Stop: 02/05/24 04:28 Nitroglycerin (Nitroglycerin Sl 0.4 Mg/Tab Tab) 0.4 mg SL Q5M PRN PRN Reason: Pain Stop: 02/05/24 04:28 Ondansetron HCl (Ondansetron Inj 2 Mg/Ml 2 Ml Vial) 4 mg IV Q6H PRN PRN Reason: Nausea Stop: 02/05/24 04:28 Oxycodone HCl (Oxycodone Hcl Ir 5 Mg Tab (Immediate Release)) 10 mg PO Q6 PRN PRN Reason: Moderate Pain (Scale 4, 5, 6) Stop: 01/20/24 04:28 Last Admin: 01/06/24 06:42 Dose: 10 mg Pantoprazole Sodium (Pantoprazole 40 Mg Tab) 40 mg PO BID [facility] Stop: 02/05/24 08:59 Last Admin: 01/06/24 08:32 Dose: 40 mg Ranolazine (Ranolazine 500 Mg Er Tab) 1,000 mg PO BID [facility] Stop: 02/05/24 08:59 Last Admin: 01/06/24 08:32 Dose: 1,000 mg Sacubitril/Valsartan (Valsartan/Sacubitril 26/24mg Tab) 1 tab PO BID [facility] Stop: 02/05/24 08:59 Last Admin: 01/06/24 08:32 Dose: 1 tab Trazodone HCl (Trazodone Hcl 50 Mg Tab) 150 mg PO HS [facility] Stop: 02/05/24 20:59
[2024-01-06] MEDS ORDERED: VANCOMYCIN HCL 2,500 MG in SODIUM CHLORIDE 0.9% 500 ML IV ONE (10:00)
[2024-01-06] MEDS: VANCOMYCIN HCL 2,000 MG in SODIUM CHLORIDE 0.9% 500 ML IV SCH (10:37)
[2024-01-06] MEDS ORDERED: CHLORASEPTIC (PHENOL) 1.4% SOLN 180 ML BTL MT PRN (10:50)
--- NOTE | 2024-01-06 10:54 | Pharmacy Report ---
Pharmacy Vanc AUC Short Note - Date of Service January 06, 2024 - Assessment & Plan Assessment * 68 year old M receiving VANCOMYCIN + ZOSYN for treatment of L foot gangrene, L leg cellulitis in the setting of severe PAD, prior h/o L foot osteo and bypass grafting of LLE. * Pertinent microbiologic data includes: BLCX results pending; 12/10/23 L foot cx grew ps aeruginosa (haines-S), Bacteroides fragilis and Finegoldia magna * Vascular surgeon recommended admit for IV abx and planned BKA on 01/10. ID consulted and recommends Vanco + Zosyn. * Day # 2 of antimicrobial therapy. Plan Vancomycin * AUC/SONJA is the preferred PK/PD target for vancomycin * AUC guided dosing is effective and associated with decreased risk of nephrotoxicity compared to traditional trough targets * 2000mg (~20mg/kg) loading dose x 1, followed by maint dose of 1250mg Q 12 hrs (1st maint dose ~ 6 hrs after initial load to quickly achieve AUC/SONJA target) * This regimen is predicted to achieve target AUC/SONJA of 400-600 mg/L.hr and may be associated with a 10 % risk of nephrotoxicity * Random level ordered for: 01/07/24 (after two maint doses) Pharmacy will continue to follow and will adjust dose/frequency as necessary. Thank you.
[2024-01-06] MEDS ORDERED: MoRPHine SULFATE 2 MG/ML CARP IV PRN (11:08)
[2024-01-06] MEDS: MoRPHine SULFATE 4 MG/ML 1 ML CARP\\VIAL IV PRN (11:48)
[2024-01-06] MEDS: MoRPHine SULFATE 4 MG/ML 1 ML CARP\\VIAL ONE (14:09)
[2024-01-06] MEDS: GABAPENTIN 300 MG CAP PO SCH (14:44)
[2024-01-06] MEDS: ACETAMINOPHEN 500 MG TAB PO SCH (14:44)
--- NOTE | 2024-01-06 15:01 | Hospitalist Progress Note ---
Date of Service January 06, 2024 Assessment & Plan (1) Gangrene of left foot: Plan: - secondary to diabetic foot infection and PAD - s/p left metatarsal amputation due to osetomylitits, recent CT negative for osteomylitis - history of Pseudomonas aeruginosa, bacteroides fragilis, and finegoldia magna - History of peripheral artery disease s/p LLE bypass graft on 12/15/23 currently complicated by occlusion - blood cultures, pending - consult to vascular surgery - Scheduled for left BKA on 01/11/2024 - Infectious disease following - continue heparin, clopidogrel, vancomycin IV, and Zosyn IV (2) Hypertension: Plan: - stable - with coronary artery disease, heart failure with reduced ejection fraction, hyperlipidemia, and pacemaker - continue with clopidogrel, isosorbide mononitrate, metoprolol, ranolazine, Entresto, Zetia, and atorvastatin (3) Diabetes mellitus: Plan: - Most recent A1C 7.5 on 01/05 - Continue with SSI (4) History of anemia: Plan: - patient had bleeding and postoperative anemia after LLE bypass surgery in November - hemoglobin 9.6 and hematocrit 29.7 on 01/05 - no iron panel on file, will order - continue with ferrous gluconate (5) Hx of upper gastrointestinal hemorrhage: Plan: - current BUN 24 on 01/06/24 - continue pantoprazole Plan VTE ppx: Heparin Diet: Heart Healthy, Carb consistent Code status: FULL CODE Admission and Anticipated Discharge Date Admission Date: January 06, 2024 Supervising Physician Co-Signing Physician Notes Patient was seen and examined independently I discussed the case with Sabrian HERNANDEZ I reviewed pertinent past medical social family history and also the plan of care and agree with the plan of care. Patient was independently seen and examined Patient admitted after failed revascularization of left leg resulted in progr essive gangrene. Recent previous osteomyelitis had required amputation of toes and eventually transmetatarsal amputation of the left foot revascularization is found to be occluded and patient is brought in for pain control, treating infection (no osteomyelitis seen on imaging) and considering below-knee amputation the following week. Patient's pain control is poor requiring parenteral medications at high doses Physical exam shows the patient to have a transmetatarsal amputation with fresh incision on the left foot foot is dusky with poor capillary refill is amnestic from diabetic neuropathy the pain is more deep-seated but unremitting according to the patient. Patient's other cardiovascular exam is stable with a regular heartbeat and clear lungs. Continue parenteral pain control intravenous antibiotics infectious disease consultation and vascular surgery evaluation for possible BKA next week Any exceptions will be noted below Subjective Patient stated that he has over a 10/10 pain in his left foot. The foot is red, swollen, and gangrenous. He has mild sensation of his left foot. He previously had an amputation of his left metatarsals and left lower extremity bypass graft surgery. He shared that he is preparing for an amputation on Wednesday01/11/24. He did have chills 2 days ago that have subsided. He currently denies fever and chills. He stated that he previously quit smoking, but started again and smokes 1/2 ppd. His appetite has been stable despite being in pain. Review of Systems Constitutional: no fever and no chills Respiratory: no cough and no dyspnea Cardiovascular: no chest pain Physical Exam Physical Exam: The patient is awake, alert and oriented 3, normocephalic and atraumatic, sitting in bed and in no acute distress. HEENT- Hearing grossly intact. Heart-normal S1 and S2. No murmurs, rubs or gallops. Lungs-clear bilaterally, no respiratory distress, no accessory muscle use. Abdomen-normal bowel sounds and soft. Extremities- No clubbing or edema. Diminished left lower extremity pulses. Dermatologic- left foot status post amputation of toes and distal metatarsals with erythema, induration different stages of healing erosions Psychiatric- normal affect. Results & Data Results & Data Vital Signs (Past 12 Hours) Vital Signs Temp Pulse Pulse Resp BP Pulse Ox O2 Del Method 01/06/24 14:14 36.8 C 01/06/24 10:32 36.7 C 92 H 20 102/54 L 95 Room Air 01/06/24 08:27 97 H 18 142/82 H 95 Room Air 01/06/24 07:11 89 PG Care Time/CCT Total # of Minutes Spent Total Time Spent with Patient: Total time spent is greater than 50% in coordination of care (as documented) at patient's floor/unit and/or counseling patient: Coding Level of Care Code None Diagnoses Gangrene of left foot I96 Hypertension I10 Diabetes mellitus E11.9 History of anemia Z86.2 Hx of upper gastrointestinal hemorrhage Z87.19
[2024-01-06 15:28] LABS: ANTI-Xa, UFH(UnfractionatedHep 0.17 IU/ml (0.3-0.7)
[2024-01-06] MEDS: HEPARIN SOD (PORCINE) 1000 UNIT/ML IV ONE (16:17)
[2024-01-06] MEDS: MoRPHine SULFATE 10 MG/ML CARP/VIAL IV STA (17:05)
[2024-01-06] MEDS: VANCOMYCIN HCL 1,250 MG in SODIUM CHLORIDE 0.9% 250 ML IV SCH (17:05)
--- NOTE | 2024-01-06 17:13 | Billing Data ---
Date of Service January 06, 2024 Coding Level of Care Code 89881 INT INP/OBS CARE
[2024-01-06] MEDS: fentaNYL citrate PF 100 MCG/2 ML VIAL IV STA (19:52)
[2024-01-06] MEDS: traZODone HCL 50 MG TAB PO SCH (20:43)
[2024-01-06] MEDS: METOPROLOL SUCC 25MG EXT REL TAB PO SCH (20:44)
[2024-01-06] MEDS: ATORVASTATIN 40 MG TAB PO SCH (20:44)
[2024-01-06] MEDS: DOXEPIN HCL 10 MG CAPSULE PO SCH (20:44)
[2024-01-06] MEDS: LANTUS PER UNIT CHARGE SC SCH (20:52)
[2024-01-06] MEDS: HYDROmorphone INJ 0.5 MG/0.5 ML SYR IV PRN (21:28)
[2024-01-06 22:30] LABS: ANTI-Xa, UFH(UnfractionatedHep 0.28 IU/ml (0.3-0.7)
[2024-01-06] MEDS: HYDROmorphone INJ 1 MG/ML SYRINGE IV STA (22:54)
[2024-01-06 22:59] VITALS: TEMP 98.1
[2024-01-06 23:08] VITALS: RESP 16
[2024-01-06 23:19] VITALS: O2SAT 97
[2024-01-06 23:24] VITALS: BP 96/46
[2024-01-06 23:32] VITALS: PULSE 77
--- NOTE | 2024-01-06 23:50 | Communication Note ---
Date of Service: January 06, 2024 Alerted that patient having worsening signs of gangrene and infection. Dr. Bailey did his admission early this AM and has reevaluated the patient. D oes suspect worsening of infection. Patient also having refractory ischemic pain at rest. Patient has had little to no improvement of pain with various modalities - oxycodone 10 mg Q6H, morphine 2 mg, 4 mg, or 8 mg, dilaudid 0.25 or 0.5. Did give a dose on 1 mg dilaudid which caused mild hypotension and desaturation into the 80s. As we are unable to safely control his pain and he is having worsening infection/ischemia with pain at rest, patient likely unable to wait until Dr. Layne's return for intervention. Discussed case with Dr. Kathi Baugh (vascular surgeon patent prosecution attorney). Amenable to acceptance to PCU level bed for pain control and probably amp. Will arrange transfer via [facility] ground crew after a bed is confirmed at [facility]. Paperwork completed. Case discussed with Dr. Bailey. Resident Activity Tracking Resident Involvement: Resident Care Provided Care Provided: Adult Hospital Medicine
--- NOTE | 2024-01-11 16:14 | Discharge Summary ---
Discharge Summary Date of Service January 07, 2024 Principal Dx & Hospital Course #1 = Principal Diagnosis (1) Gangrene of left foot: - secondary to diabetic foot infection and PAD - s/p left metatarsal amputation due to osetomylitits, recent CT negative for osteomylitis - history of Pseudomonas aeruginosa, bacteroides fragilis, and finegoldia magna - History of peripheral artery disease s/p LLE bypass graft on 12/15/23 currently complicated by occlusion As we are unable to safely control his pain and he is having worsening infection/ischemia with pain at rest, patient likely unable to wait until Dr. Layne's return for intervention. Discussed case with Dr. Kathi Baugh (vascular surgeon auto suspension and steering mechanic). Amenable to acceptance to U level bed for pain control and probably amp. Will arrange transfer via [facility] ground crew after a [place] is [place] [facility] - - Infectious disease following - continue heparin, clopidogrel, vancomycin IV, and Zosyn IV (2) Hypertension: - stable - with coronary artery disease, heart failure with reduced ejection fraction, hyperlipidemia, and pacemaker - continue with clopidogrel, isosorbide mononitrate, metoprolol, ranolazine, Entresto, Zetia, and atorvastatin (3) Diabetes mellitus: - Most recent A1C 7.5 on 01/05 - Continue with SSI (4) History of anemia: - patient had bleeding and postoperative anemia after LLE bypass surgery in November - hemoglobin 9.6 and hematocrit 29.7 on 01/05 - no iron panel on file, will order - continue with ferrous gluconate (5) Hx of upper gastrointestinal hemorrhage: - current BUN 24 on 01/06/24 - continue pantoprazole Plan Code status: FULL CODE Admission HPI Per Admitting Provider The patient is a 68-year-old male with postoperative wound infection as noted above, upper GI bleed, peptic ulcer disease, right leg DVT, HFrEF, ASCVD, pr esence of anterior cardiac defibrillator and pacemaker, diabetic left foot infection, gout, PAD, status post coronary artery stent placement, status post iliac artery stent placement, CAD, ischemic cardiomyopathy, diabetes mellitus, hypercholesterolemia and tobacco abuse. The patient will be admitted as noted above for IV antibiotics, with vascular surgery consult for plans left lower extremity amputation next week, unless clinical conditions worsens in the interim. Discharge Exam pt was transferred at night urgently Discharge Plan Discharge Items Patient Disposition: Transfer Acute Care Hospital Reason For Visit: OCCLUDED LLE BYPASS GRAFT,CELLULITIS LLE, HX PSUED Discharge Diagnosis: ischemic left leg, gangrenous pseudomonas/bacteroides infection Activity: Per Instructions section Non-emergency contact: Primary Care Provider and Surgeon Call non-emergency contact if: your symptoms worsen Follow-up/Referrals: Domingo Valentino MD [Primary Care Provider] - Diet: Heart Healthy Addtl Attending Provider Instructions: (1) Gangrene of left foot: Plan: - secondary to diabetic foot infection and PAD - s/p left metatarsal amputation due to osetomylitits, recent CT negative for osteomylitis - history of Pseudomonas aeruginosa, bacteroides fragilis, and finegoldia magna - History of peripheral artery disease s/p LLE bypass graft on 12/15/23 currently complicated by occlusion - blood cultures, pending - consult to vascular surgery - Scheduled for left BKA on 01/11/2024 - Infectious disease following - continue heparin, clopidogrel, vancomycin IV, and Zosyn IV Worsening ischemic pain, now at rest. Infection/gangrene worsening as well. Improvement with 1 mg IV dilaudid unfortunately became hypoxic. Discussed case with Dr. Linares with the vascular team at [facility] who is amenable to accepting transfer for pain control and possible amputation. (2) Hypertension: Plan: - stable - with coronary artery disease, heart failure with reduced ejection fraction, hyperlipidemia, and pacemaker - continue with clopidogrel, isosorbide mononitrate, metoprolol, ranolazine, Entresto, Zetia, and atorvastatin (3) Diabetes mellitus: Plan: - Most recent A1C 7.5 on 01/05 - Continue with SSI (4) History of anemia: Plan: - patient had bleeding and postoperative anemia after LLE bypass surgery in November - hemoglobin 9.6 and hematocrit 29.7 on 01/05 - no iron panel on file, will order - continue with ferrous gluconate (5) Hx of upper gastrointestinal hemorrhage: Plan: - current BUN 24 on 01/06/24 - continue pantoprazole Plan VTE ppx: Heparin Diet: Heart Healthy, Carb consistent Code status: FULL CODE Pending Studies at Discharge: Yes Stand-Alone Forms: My [facility] Skilled Items Patient informed of condition?: Yes DNR: Yes Discharge Level of Care: Other Communicable Disease: No Discharge Prognosis: Stable Lines: Peripheral IV Urinary Catheter: No Medications and DC Order Prescriptions: New hydromorphone 0.5 mg/0.5 mL Syringe 0.25 mg IV Q3H PRNQty: 0 0RF hydromorphone 0.5 mg/0.5 mL Syringe 0.5 mg IV Q3H PRNQty: 0 0RF glucose [Dex4 Glucose] 4 gram Tablet,Chewable 5 g PO UD PRNQty: 0 0RF dextrose 50 % in water (D50W) Syringe 25 - 50 ml IV UD PRNQty: 0 0RF dextrose [Glutose-15] 40 % Gel 15 - 30 g PO UD PRNQty: 0 0RF ondansetron HCl (PF) 4 mg/2 mL Solution 4 mg IV Q6H PRNQty: 0 0RF glucagon HCl 1 mg/mL Recon Soln 1 mg subcut UD PRNQty: 0 0RF insulin aspart U-100 [Novolog U-100 Insulin aspart] 100 unit/mL Solution See Rx Instructions .ROUTE .COMPLEX Qty: 0 0RF Rx Instructions: CF: 30 CR: 15 Goal 120-160 Carbohydrates For Hypoglycemia 15 - 30 g PO UD PRNQty: 0 0RF Vancomycin Consult Active [Consult] 1 ea Not Applicable UD PRNQty: 0 0RF Continued (DME) pen needle, diabetic [BD Ultra-Fine Short Pen Needle] 31 gauge x 5/16" needle See Rx Instructions .ROUTE .MEDSUPPLY Qty: 100 3RF Rx Instructions: As neubggff-7-6 times per day for insulin administration isosorbide mononitrate 120 mg tablet extended release 24 hr 120 mg PO QAM Qty: 90 3RF furosemide 40 mg tablet 40 mg PO QAM Qty: 90 1RF Eliquis 5 mg tablet 5 mg PO BID Qty: 180 1RF allopurinol 100 mg tablet 100 mg PO QAM Qty: 90 1RF Rx Instructions: Take 600mg w/ 100mg by mouth once in the morning for a total dose of 700mg in the morning allopurinol 300 mg tablet 600 mg PO QAM Qty: 180 1RF Rx Instructions: Take 600mg w/ 100mg by mouth once in the morning for a total dose of 700mg in the morning ranolazine 1,000 mg tablet extended release 12 hr 1,000 mg PO BID Qty: 180 3RF Rx Instructions: TAKE 1 TABLET BY MOUTH TWICE A DAY acetaminophen [Tylenol Arthritis Pain] 650 mg tablet extended release 1,300 mg PO Q12H Qty: 120 2RF atorvastatin 80 mg tablet 80 mg PO HS Qty: 90 1RF pantoprazole 40 mg tablet,delayed release (DR/EC) 40 mg PO BID Qty: 180 1RF clopidogrel 75 mg tablet 75 mg PO QAM Qty: 90 0RF (DME) FreeStyle Sandy 2 Sensor Kit See Rx Instructions .Route Qty: 2 5RF Rx Instructions: As directed to check blood sugars at least once every 8 hours; change every 14 days insulin glargine [Lantus Solostar U-100 Insulin] 100 unit/mL (3 mL) insulin pen 50 - 55 unit SUBCUT PM Qty: 45 0RF nitroglycerin 0.4 mg tablet, sublingual 0.4 mg sublingual Q5M PRN (Reason: Pain) Qty: 14 5RF Patient Comments: has never used Rx Instructions: do not exceed 3 doses per episode doxepin 6 mg tablet 6 mg PO HS Qty: 60 2RF Entresto 24-26 mg tablet 1 tab PO BID Qty: 60 2RF oxycodone 10 mg tablet 10 mg PO Q6 PRN (Reason: Pain) gabapentin 100 mg capsule 100 mg PO TID Qty: 90 2RF ezetimibe 10 mg tablet 10 mg PO QAM ferrous gluconate 324 mg (37.5 mg iron) tablet 324 mg PO QAM Jardiance 25 mg tablet 25 mg PO QAM magnesium oxide 400 mg magnesium tablet 400 mg PO QAM metoprolol succinate 25 mg tablet extended release 24 hr 25 mg PO HS trazodone 100 mg tablet 150 mg PO HS Repatha SureClick 140 mg/mL pen injector 140 mg SUBCUT .EVERY 2 WEEKS Discharge Orders: Discharge Order (Routine); Ordered 01/07/24 Ordered By: Meri Lazaro Admission Data Admit Date/Time: 01/06/24 03:53 Attending Provider: Erick Murdock Admit Provider: Pradeep Bailey Primary Care Provider: Domingo Valentino Other Providers: Graciela Jimenez; Felisha Clements; Giselle Greenfield; Robbi Shultz; Michelle Manzo; Ladi Giron; Hernan Layne; Pradeep Bailey Hospital Stay Data Consultations 01/06/24 02:11 ED Decision to Admit Stat 01/06/24 04:29 Consult Infectious Diseases Routine Consult Vascular Surgery Routine Diagnostic Imagining Performed 01/06/24 00:00 CT head/brain wo con Stat CT tib/fib LT wo con Stat 01/06/24 00:13 CT foot LT wo con Stat 01/06/24 02:35 US arterial duplex LE LT Stat Pending Results Patient Have Any Pending Studies at Discharge: Yes Discharge Instructions Given to Patient (Per Discharging Provider) (1) Gangrene of left foot: Plan: - secondary to diabetic foot infection and PAD - s/p left metatarsal amputation due to osetomylitits, recent CT negative for osteomylitis - history of Pseudomonas aeruginosa, bacteroides fragilis, and finegoldia magna - History of peripheral artery disease s/p LLE bypass graft on 12/15/23 currently complicated by occlusion - blood cultures, pending - consult to vascular surgery - Scheduled for left BKA on 01/11/2024 - Infectious disease following - continue heparin, clopidogrel, vancomycin IV, and Zosyn IV Worsening ischemic pain, now at rest. Infection/gangrene worsening as well. Improvement with 1 mg IV dilaudid unfortunately became hypoxic. Discussed case with Dr. Linares with the vascular team at [facility] who is amenable to accepting transfer for pain control and possible amputation. (2) Hypertension: Plan: - stable - with coronary artery disease, heart failure with reduced ejection fraction, hyperlipidemia, and pacemaker - continue with clopidogrel, isosorbide mononitrate, metoprolol, ranolazine, Entresto, Zetia, and atorvastatin (3) Diabetes mellitus: Plan: - Most recent A1C 7.5 on 01/05 - Continue with SSI (4) History of anemia: Plan: - patient had bleeding and postoperative anemia after LLE bypass surgery in November - hemoglobin 9.6 and hematocrit 29.7 on 01/05 - no iron panel on file, will order - continue with ferrous gluconate (5) Hx of upper gastrointestinal hemorrhage: Plan: - current BUN 24 on 01/06/24 - continue pantoprazole Plan VTE ppx: Heparin Diet: Heart Healthy, Carb consistent Code status: FULL CODE Total Time Total Time Spent Total Time Spent (In Minutes): no billing time Coding Level of Care Code None Diagnoses Gangrene of left foot I96 Hypertension I10 Diabetes mellitus E11.9 History of anemia Z86.2 Hx of upper gastrointestinal hemorrhage Z87.19
== END 2024-01-07 02:49 | disposition short-term general hospital (02) | DRG 300 ==
LOC: ED 21:50 → SUATTDRO 01-06 03:53 → EDINP 01-06 03:53 → 2S 01-06 10:28